=== PATIENT | female | born 1965 | race Caucasian/White ===

== ENCOUNTER 2025-06-02 10:12 | Emergency (ER) | payer MEDICAID, SELFPAY ==
[2025-06-02 10:15] VITALS: BP 146/90; PULSE 66; RESP 20; TEMP 36.3; O2SAT 98; BMI 26.6
--- NOTE | 2025-06-02 10:23 | RAD_ITS ---
PROCEDURE: PELVIS 1 OR 2 VIEWS 06/02/2025 REASON FOR EXAM: INJURY/PAIN Patient fell yesterday. TECHNIQUE: PELVIS 1 OR 2 VIEWS COMPARISON: None. FINDINGS: Hardware: None. Bones: No acute bony abnormality. Joints: No dislocation. soft tissues: No soft tissue abnormalities. RAD/Pelvis 1 or 2 Views IMPRESSION: No acute bony abnormalities. Reading Location: [id number]
--- NOTE | 2025-06-02 10:23 | RAD_ITS ---
PROCEDURE: LUMBAR SPINE 2 OR 3 VIEWS 06/02/2025 REASON FOR EXAM: INJURY/PAIN patient fell yesterday. TECHNIQUE: LUMBAR SPINE 2 OR 3 VIEWS COMPARISON: None. FINDINGS: Vertebrae: No acute bony abnormalities. Discs: The disc spaces are preserved. Facet joint arthropathy at L4-L5 and L5-S1. Alignment: Normal. RAD/Lumbar Spine 2 or 3 Views IMPRESSION: No acute findings. Reading Location: [id number]
--- NOTE | 2025-06-02 10:37 | EDS_ITS ---
HPI HPI - Fall History of Present Illness Chief Complaint: Fall Detail of Chief Complaint: Fall down 3 steps, mother's house Informant: patient Occured/Mechanism Occurred: Yesterday Mechanism/Context: Yes slip, No cannot recall fall and No prodromal Narrative: Walking down the steps and slipped and went down but first 3 steps Fall down steps #: 3 Usually ambulates: Without assistance Pain/Injury Location: Buttocks and low back and neck Pain Location: neck and back Quality of Pain: Dull Current Severity: Mild Maximum Severity: Moderate Worsened by: Movement and palpation Relieved by: Nothing Associated Symptoms Associated Symptoms: Negative for Parasthesias, Weakness, Loss of function, Inability to ambulate, Loss of consciousness or Amnesia Narrative Narrative: Patient is 60-year-old woman. She was walking down her mother steps and slipped. She slid down the last 3. She states she had blood first. She denied head trauma. She is not amnestic. She did complains of neck pain this morning. The neck pain is located bilaterally and not midline. She denies increased shortness of breath from baseline. She denies chest pain or upper back pain. She does endorse low back pain and buttocks pain. She denies difficulty urinating or loss of bowel control. She denies paresthesia, anesthesia or motor weakness upper or lower extremity. She has urinated. She has not noted dark urine or blood in her urine. She is allergic to ketorolac with hives and shortness of breath. She states she drove herself to the emergency department. Prior similar symptoms: Yes Recent Illness/Hospitalization: No PFSH PFS Medical History Pericarditis Tachycardia COPD (chronic obstructive pulmonary disease) Asthma HTN (hypertension) High blood cholesterol Carpal tunnel syndrome of left wrist Overactive bladder OCD (obsessive compulsive disorder) Manic depression PTSD (post-traumatic stress disorder) Home Medications ?Medication ?Instructions ?Recorded ?Last Taken ?Type hydrocodone-acetaminophen 5-325mg 1 tab PO Q6H PRN PRN Pain 3 days 06/02/25 Unknown Rx 5mg-325mg #10 TABLETS Allergy/AdvReac Type Severity Reaction Status Date / Time ketorolac (From Toradol) Allergy Severe Shortness Verified 06/02/25 10:14 of breath bee venom protein (honey Allergy Mild HIVES Verified 06/02/25 10:14 bee) (bee sting) latex Allergy Mild Hives Verified 06/02/25 10:14 Surgical History H/O tubal ligation H/O breast biopsy History of hysterectomy History of carpal tunnel surgery Social History Smoking Status: Heavy Smoker (>10/day) ROS ROS ED Constitutional Constitutional ED: Denies chills, fever(s), subjective or sweats Eyes Eyes: Denies blurry vision, change in vision or diplopia ENT ENT ED: Denies ear pain, rhinorrhea or sore throat Cardiovascular Cardiovascular: Denies chest pain, orthopnea, palpitations, paroxysmal nocturnal dyspnea or racing heartbeat Respiratory/Chest Respiratory/Chest: Denies cough, dyspnea, dyspnea on exertion, orthopnea or paroxysmal nocturnal dyspnea Gastrointestinal Gastrointestinal: Denies abdominal pain, nausea or vomiting Genitourinary Genitourinary ED: Denies hematuria Musculoskeletal Musculoskeletal: Reports back pain and neck pain; Denies arthralgias or myalgias Integumentary Denies rash Neurologic Neurologic: Denies headache(s), paresthesias or weakness Psychiatric Psychiatric: Denies anxiety or depression Hematologic/Lymphatic Hematologic/Lymphatic: Reports other Details: Patient is not on an anticoagulant. ; Denies easy bleeding or easy bruising EXAM Physical Exam Const Vital Signs: 06/02/25 10:15 06/02/25 10:27 Temperature 97.4 F L Temperature Source Temporal Pulse Rate 66 Respiratory Rate 20 H Respiratory Effort Normal Respiratory Depth Normal Respiratory Pattern Normal Blood Pressure 146/90 H Blood Pressure Mean 108 Pulse Ox 98 Oxygen Delivery Method Room Air Room Air Positive well nourished and well developed Constitutional Narrative: Patient appears slightly uncomfortable. Vital signs remarkable and elevated blood pressure. General Appearance ED: well developed HEENT Reports normocephalic and TM's normal bilaterally HEENT Narrative: There is no clinical signs of trauma or basilar skull fracture. atraumatic Eyes PERRL and EOMs intact bilaterally General Eye ED: Negative for pale conjunctiva or scleral icterus Neck full ROM, no lymphadenopathy and supple Chest Wall inspection of chest normal and palpation of chest normal Resp normal respiratory effort, no retractions and clear to auscultation bilaterally Cardio regular rate, regular rhythm, S1 normal heart sound, S2 normal heart sound and no murmurs GI non-tender, non-distended and no masses Back/Spine no CVA tenderness Back/Spine Narrative: There is pain palpation over the right and left trapezius area. There is no midline cervical tenderness. She has full active range of motion. Thoracic Spine / Upper Back: ROM limited Lumbar Spine / Lower Back: lumbar spinal tenderness L4 and L5 Neuro oriented x3, CN's II-XII intact bilaterally, moves all extremities, no focal motor deficits and no sensory deficits noted Neuro Narrative: There is no Babinski sign or clonus right or left. [place] Coma Scale: document GCS findings Spontaneous Obeys Commands Oriented 15 Sensorium / Orientation: alert Cranial Nerves: CN normal except as noted Motor Exam: strength 5/5 throughout Psych mental status grossly normal and thought process normal Skin Skin Narrative: There is no bruising. Lesions: no lesions Rashes: no rashes MDM MDM MDM Narrative Medical decision making narrative: Will obtain x-rays of the pelvis since she has pain no patient over the right ischial tuberosity and LS-spine since her tenderness over L4 and 5. Since there is no midline tenderness. Patient was not medicated since she drove herself. NSAIDs are contraindicated in light of the her reaction to acuter Wolshayy. Radiography Chest X-Ray - ED: 1 View (Pelvis reveals no fracture, subluxation dislocation. There is some nonseptic gas noted. This was independently reviewed interpreted by me at 1047.), 2 View (LS-spine reveals some minimal degenerative changes. There is no evidence of spondylolisthesis spinal lithiasis. There is no evidence of fracture. This independently reviewed interpreted by me at 1047.) and Read by ED Physician Discharge Plan Triage Chief Complaint: Fall ED Provider: Reynaldo Andrade Dx/Rx/DC Orders Clinical Impression: Acute lumbosacral myofascial strain, Contusion of lower back and pelvis, initial encounter, Acute cervical myofascial strain, Fall down steps Instructions: ED Back Sprain/Strain, ED Neck Sprain or Strain Prescriptions: New hydrocodone-acetaminophen 5-325 mg tablet 1 tab PO Q6H PRN PRN (Reason: Pain) 3 Days Qty: 10 0RF Primary Care Provider: Care Physician,No Primary Referrals: Care Physician,No Primary [Primary Care Provider] - Activity Restrictions/Additional Instructions: 1. You may feel worse over the next 24 to 48 hours. 2. You may hurt in more places and you presently do. 3. Apply ice 6-8 times a day over your neck, low back and pelvic area. 4. Follow-up with your primary care physician if you are not better in 1 week. The name of your doctor is located on your insurance card issued to you by [facility] Print Language: Occitan Disposition Disposition: Home, Self Care
--- OUTSIDE RECORDS SUMMARY | 2025-06-02 10:39 | XMS RPT_ITS | CCD ---
Author Organization [facility] [place] Care Team Providers Care Lab Rep Name Role Phone Krish Jimenez Unavailable Unavailable Call, On Unavailable Unavailable Ficco, Scott Unavailable Unavailable Call, On Unavailable Unavailable Call, On Unavailable Unavailable Ficco, Scott Unavailable Unavailable Call, On Unavailable Unavailable Dunia Bravo Unavailable Unavailable Unavailable Primary Care Provider Unavailabl e MOI CARTWRIGHT MD Primary Care Physician Brittany Willoughby MD Primary Care Provider Tho Harper MD Unavailable Gabbie Kingston MD, Barbara Unavailable Brittany Willoughby MD Primary Care Provider Tho Harper MD Unavailable Gabbie Kingston MD, Barbara Unavailable Brittany Willoughby MD Primary Care Provider Tho Harper MD Unavailable Gabbie Kingston MD, Barbara Unavailable Brittany Willoughby MD Primary Care Provider Tho Harper MD Unavailable Gabbie Kingston MD, Barbara Unavailable Brittany Willoughby MD Unavailable Brittany Willoughby MD Unavailable Brittany Willoughby MD Primary Care Provider Tho Harper MD Unavailable Gabbie Kingston MD, Barbara Unavailable Leroy FIERRO, Dorongian Unavailable [phone] Case FIERRO, Brittany Alba Primary Care Provider Travis Schilling MD Unavailable GABBIE FIERRO, MOI Primary Care Unavailable JEM BRENNAN, LISETTE Fenton Attending Unavailab TIERRA Carmona MD Attending Unavailable GABBIE FIERRO, MOI Primary Care Unavailable Janette Gonzalez MD Unavailable [phone] BRITTANY WILLOUGHBY Primary Care Unavailable BRITTANY WILLOUGHBY Primary Care Unavailable MODESTO AKINS Attending Unavailable BRITTANY WILLOUGHBY Primary Care Unavailable Ирина Dalal MD Unavailable Modesto Akins MD Unavailable GABBIE IFERRO, MOI Primary Care Unavailable MODESTO FRANCOIS DO Attending Unavailable KESHA MACEDO MD Attending Unavailvivian CARTWRIGHT MD, [facility] Primary Care Unavailable GABBIE FIERRO, [facility] Primary Care Unavailable MODESTO FRANCOIS DO Attending Unavailable ME CASEENA W Referring Unavailable CASE BRITTANY W Primary Care Unavailable EVER CARUSO Attending Unavailable BRITTANY WILLOUGHBY W Primary Care Unavailable FILOMENA QUINN Attending UnavailBRITTANY Amaya W Referring Unavailable CASE, BRITTANY W Primary Care Unavailable FILOMENA QUINN Attending Unavailmayito e BRITTANY WILLOUGHBY W Referring Unavailable CASE, BRITTANY W Primary Care Unavailable RADHA DEY Attending Unavailable CASE, BRITTANY W Primary Care Unavailable RED TUCKER Attending Unavailable BRITTANY WILLOUGHBY W Referring Unavailable mirabegron (MYRBETRIQ) 50 mg Tb24 Take 1 tablet by mouth once daily. OTC PRODUCT Take 1 capsule by mouth once daily. Probiotic LD 07/15/24 BIOTIN 5,000 MCG GUMMY Take 2 Doses by mouth once daily. Ipratropium Antoine (ATROVENT) 21 mcg (0.03 %) nasal spray Use 2 Sprays in the nose three times a day. cetirizine (ZYRTEC) 10 mg tablet Take 1 tablet by mouth once daily. atorvastatin (LIPITOR) 40 mg tablet Take 1 tablet by mouth once daily. lisinopril (ZESTRIL) 5 mg tablet Take 1 tablet by mouth once daily. pantoprazole DR (PROTONIX) 40 mg tablet Take 1 tablet by mouth once daily. tiotropium-olodaterol (STIOLTO RESPIMAT) 2.5-2.5 mcg/actuation Inhale 2 Puffs as instructed once daily. SUMAtriptan (IMITREX) 50 mg tablet Take 1 tablet (50 mg) by mouth once daily as needed. tiZANidine (ZANAFLEX) 4 mg tablet Take 1 tablet by mouth every 8 hours as needed. albuterol HFA (PROVENTIL HFA) 90 mcg/actuation inhaler Inhale 2 Puffs as instructed every 4 hours as needed for wheezing/shortness of breath. fluticasone (FLONASE) 50 mcg/actuation nasal spray Use 1 Mobile in each nostril once daily. (Patient taking differently: Use 1 Mobile in each nostril once daily. [facility] 07/16- NO LONGER TAKING) menthol (BIOFREEZE, MENTHOL,) 4 % topical gel Apply to affected area three times daily as needed. lidocaine (LIDODERM) 5 % Apply 1 Patch as directed once daily. to affected area. Remove patch after 12 hours. docusate sodium (COLACE) 100 mg capsule [facility] 07/16- NO LONGER TAKING EPINEPHrine (EPIPEN) 0.3 mg/0.3 mL auto-injector Inject 0.3 mg intramuscularly as needed. REVIEW OF SYSTEMS: Chest pain Shortness of breath Bleeding Dizziness Syncope Palpations 10 systems reviewed and are negative with the exception of pertinent positives described in HPI PHYSICAL EXAMINATION: HEENT: NC/AT Heart: RRR with with II/ systolic murmur. Lungs: CTAB Abdomen: Benign, no rebound, guarding or rigidity. Extremities: No edema Neurological: Alert and oriented in no acute distress. Skin: Dry and warm CARDIOVASCULAR MEDICINE TESTING: Last EKG Result Conclusion EKG Collected: 12/16/2023 9:27 PM (Final result) Impression: Normal sinus rhythm Nonspecific T wave abnormality Abnormal ECG When compared with ECG of 25-JAN-2023 20:15, No significant change was found Confirmed by ISABEL FIERRO, [facility] ([id number]) on 12/17/2023 9:22:[address] Result Conclusion CT CHEST W IVCON PE Exam End: 12/17/2023 5:13 AM (Final result) Impression: IMPRESSION: No CT evidence of pulmonary embolism. Limited assessment for subsegmental pulmonary emboli in the lung bases due to motion artifact. No other evidence of acute process in the chest. Unchanged subcentimeter pulmonary nodules as described. Attention can be given on future lung cancer screening CT. Upper lung predominant paraseptal emphysema. CRITICAL TEST/RESULTS: CRITICAL TEST/RESULTS: Acuity: Finding: Communication: Communicated with NAME on TIME via verbal communication. --END OF FINDING-- Data Review Specialist: OTRIZ Transcribe Date/Time: Dec 17 2023 5:14A Dictated by : SUYAPA MAGALLANES MD This examination was interpreted and the report reviewed and electronically signed by: SUYAPA MAGALLANES MD on Dec 17 2023 5:24AM EST Past 72 Hour Labs: Last Lab Drawn: TSH 1.450 07/30/2024 Triglyceride 107 08/22/2022 HDL Cholesterol 46 08/22/2022 LDL Cholesterol 57 08/22/2022 Cholesterol, Total 124 08/22/2022 IMPRESSION: History of hypertension Dyslipidemia Current tobacco user as well as vaping History of pericarditis and pericardial effusion in 2018 ECG in December 2023 showing normal sinus rhythm with nonspecific ST-T wave changes Myocardial perfusion imaging performed in June 2021, chemical, no evidence of ischemia. Echocardiogram in August 2022 essentially normal. History of PTSD and bipolar disorder History of obstructive sleep apnea History of nontoxic thyroid goiter, she usually sees Dr. Aknis for that PLAN AND RECOMMENDATIONS: documented in this encounter [facility] 07-31-2024 Telephone encounter Note Refilled, thank you. -[facility] 07-31-2024 Miscellaneous Notes Refilled, thank you. -[facility] Pharmacy calls in requesting the following refill(s): Requested Prescriptions Pending Prescriptions Disp Refills meloxicam (MOBIC) 15 mg tablet 90 tablet 0 Sig: Take 1 tablet by mouth once daily as needed for pain. Shandra Parmar RN Thanks! documented in this encounter [facility] 07-31-2024 Telephone encounter Note Referral Coordination Patient scheduled for:Thyroid US Location:[facility] Date: 08-16-24 Time:3:00 Prep for test:none Patient informed: TH [facility],afternoon BARTOLO Abreu July 31, 2024 10:01 AM [facility] 07-31-2024 Miscellaneous Notes Referral Coordination Patient scheduled for:Thyroid US Location:[facility] Date: 08-16-24 Time:3:00 Prep for test:none Patient informed: [facility],afternoon BARTOLO Abreu July 31, 2024 10:01 AM Please schedule thyroid ultrasound at [facility]. Thank you Modesto Akins MD documented in this encounter [facility] 07-31-2024 Telephone encounter Note Please schedule thyroid ultrasound at [facility]. Thank you Modesto Akins MD [facility] Work Phone: 07-30-2024 Note HNO ID: [id number] Author: MODESTO AKINS MD Service: ? Author Type: Physician Type: Progress Notes Filed: 07/30/2024 16:17 Note Text: Keyla Maldonado is a 59 year old female, presenting for follow-up CC/AG endocrinology visit for thyroid disease. Her most recent visit was 07/30. Thyroid: Had history of anterior neck soreness, with scratchy throat and swallowing difficulty. - 06/28 thyroid us at [facility] with left inferior 3.7 cm TR4 nodule - 08/28 TSH 2.95 Thyroid history: Family history of thyroid cancer: no Family history of benign thyroid disease: no History of head or neck irradiation: no History of Amiodarone use: no History of lithium use: no Associated signs and symptoms, modifying factors, and severity: Eye symptoms: no Dysphagia: no New neck lump: yes early 2022 Voice change: occasional Dyspnea: no Cough: no Palpitations: no Tremor: no 09/29: follow-up ultrasound at [facility] left nodule measured 4 cm in largest dimension. FNA at [facility] benign 07/31 OV: some fatigue. Some dysphagia, pills and solid foods. No recent thyroid labs Review of Systems Constitutional: Positive for malaise/fatigue. Negative for chills, diaphoresis, fever and weight loss. HENT: Positive for congestion, hearing loss, sore throat and tinnitus. Negative for ear discharge, ear pain, nosebleeds and sinus pain. Eyes: Negative for blurred vision, double vision, photophobia, pain, discharge and redness. Respiratory: Positive for cough, sputum production, shortness of breath and wheezing. Negative for hemoptysis and stridor. Cardiovascular: Negative for chest pain, palpitations, orthopnea, claudication, leg swelling and PND. Gastrointestinal: Positive for abdominal pain, diarrhea and nausea. Negative for blood in stool, constipation, heartburn, melena and vomiting. Genitourinary: Positive for frequency. Negative for dysuria, flank pain, hematuria and urgency. Musculoskeletal: Positive for back pain, falls, joint pain, myalgias and neck pain. Skin: Positive for itching and rash. Neurological: Positive for dizziness, tingling and headaches. Negative for tremors, sensory change, speech change, focal weakness, seizures, loss of consciousness and weakness. Endo/Heme/Allergies: Positive for polydipsia. Negative for environmental allergies. Bruises/bleeds easily. Psychiatric/Behavioral: Positive for depression. Negative for hallucinations, memory loss, substance abuse and suicidal ideas. The patient is nervous/anxious and has insomnia. PAST MEDICAL HISTORY Diagnosis Date Acid reflux on medication Arthritis Bipolar affective disorder (HCC) Caffeine abuse (HCC) Chest pain stress test EF 70-71% 06/2021 COPD (chronic obstructive pulmonary disease) ([facility]) Dr. Schilling Dyslipidemia on meds HFrEF (heart failure with reduced ejection fraction) ([facility]) border 40-45%, echo october 2019 Hypertension well controlled on meds Lung nodule Migraines medication, PCP manages Pericarditis 10/2019 with pericardial effusion Pre-diabetes PTSD (post-traumatic stress disorder) Tachycardia Dr. Phillip Tobacco abuse Urinary frequency PAST SURGICAL HISTORY Procedure Laterality Date BREAST BIOPSY HX Right HYSTERECTOMY HX REVISE MEDIAN N/CARPAL TUNNEL SURG Left TX INGROWN TOENAIL Bilateral bilateral great toes FAMILY HISTORY Problem Relation Age of Onset Leukemia Father Breast Cancer Paternal cousin Social History Tobacco Use Smoking status: Every Day Current packs/day: 0.50 Average packs/day: 0.5 packs/day for 44.0 years (22.0 ttl pk-yrs) Types: Cigarettes Smokeless tobacco: Never Tobacco comments: down to 5 cigs per day, was smoking 3 PPD, started age 13 Vaping Use Vaping status: Former Substance Use Topics Alcohol use: Not Currently Drug use: Never Current Meds acetaminophen (TYLENOL) 500 mg tablet Take 1,000 mg by mouth every 6 hours as needed for pain or fever (specify temp.). mv-mn/folic ac/calcium/vit K1 (WOMEN'S 50 PLUS MULTIVITAMIN ORAL) Take 1 tablet by mouth once daily. LD 07/15/24 metoprolol succinate ER (TOPROL XL) 25 mg 24 hr tablet Take 0.5 tablets by mouth once daily. mirabegron (MYRBETRIQ) 50 mg Tb24 Take 1 tablet by mouth once daily. OTC PRODUCT Take 1 capsule by mouth once daily. Probiotic LD 07/15/24 BIOTIN 5,000 MCG GUMMY Take 2 Doses by mouth once daily. Ipratropium Antoine (ATROVENT) 21 mcg (0.03 %) nasal spray Use 2 Sprays in the nose three times a day. cetirizine (ZYRTEC) 10 mg tablet Take 1 tablet by mouth once daily. atorvastatin (LIPITOR) 40 mg tablet Take 1 tablet by mouth once daily. lisinopril (ZESTRIL) 5 mg tablet Take 1 tablet by mouth once daily. pantoprazole DR (PROTONIX) 40 mg tablet Take 1 tablet by mouth once daily. meloxicam (MOBIC) 15 mg tablet Take 1 tablet by mouth once daily as needed for pain. (Patient taking differently: Take 15 mg by mouth once daily as needed for pain. LD (more content not included)... [facility] 07-30-2024 History of Present illness Narrative Images from the original note were not included. Subjective Joyce Maldonado is a 59 year old female, presenting for follow-up CC/AG endocrinology visit for thyroid disease. Her most recent visit was 07/30. Thyroid: Had history of anterior neck soreness, with scratchy throat and swallowing difficulty. - 06/28 thyroid us at [facility] with left inferior 3.7 cm TR4 nodule - 08/28 TSH 2.95 Thyroid history: Family history of thyroid cancer: no Family history of benign thyroid disease: no History of head or neck irradiation: no History of Amiodarone use: no History of lithium use: no Associated signs and symptoms, modifying factors, and severity: Eye symptoms: no Dysphagia: no New neck lump: yes early 2022 Voice change: occasional Dyspnea: no Cough: no Palpitations: no Tremor: no 09/29: follow-up ultrasound at [facility] left nodule measured 4 cm in largest dimension. FNA at [facility] benign 07/31 OV: some fatigue. Some dysphagia, pills and solid foods. No recent thyroid labs Review of Systems Constitutional: Positive for malaise/fatigue. Negative for chills, diaphoresis, fever and weight loss. HENT: Positive for congestion, hearing loss, sore throat and tinnitus. Negative for ear discharge, ear pain, nosebleeds and sinus pain. Eyes: Negative for blurred vision, double vision, photophobia, pain, discharge and redness. Respiratory: Positive for cough, sputum production, shortness of breath and wheezing. Negative for hemoptysis and stridor. Cardiovascular: Negative for chest pain, palpitations, orthopnea, claudication, leg swelling and PND. Gastrointestinal: Positive for abdominal pain, diarrhea and nausea. Negative for blood in stool, constipation, heartburn, melena and vomiting. Genitourinary: Positive for frequency. Negative for dysuria, flank pain, hematuria and urgency. Musculoskeletal: Positive for back pain, falls, joint pain, myalgias and neck pain. Skin: Positive for itching and rash. Neurological: Positive for dizziness, tingling and headaches. Negative for tremors, sensory change, speech change, focal weakness, seizures, loss of consciousness and weakness. Endo/Heme/Allergies: Positive for polydipsia. Negative for environmental allergies. Bruises/bleeds easily. Psychiatric/Behavioral: Positive for depression. Negative for hallucinations, memory loss, substance abuse and suicidal ideas. The patient is nervous/anxious and has insomnia. PAST MEDICAL HISTORY Diagnosis Date Acid reflux on medication Arthritis Bipolar affective disorder ([facility]) Caffeine abuse ([facility]) Chest pain stress test EF 70-71% 06/2021 COPD (chronic obstructive pulmonary disease) ([facility]) Dr. Schilling Dyslipidemia on meds HFrEF (heart failure with reduced ejection fraction) ([facility]) border 40-45%, echo october 2019 Hypertension well controlled on meds Lung nodule Migraines medication, PCP manages Pericarditis 10/2019 with pericardial effusion Pre-diabetes PTSD (post-traumatic stress disorder) Tachycardia Dr. Phillip Tobacco abuse Urinary frequency PAST SURGICAL HISTORY Procedure Laterality Date BREAST BIOPSY HX Right HYSTERECTOMY HX REVISE MEDIAN N/CARPAL TUNNEL SURG Left TX INGROWN TOENAIL Bilateral bilateral great toes FAMILY HISTORY Problem Relation Age of Onset Leukemia Father Breast Cancer Paternal cousin Social History Tobacco Use Smoking status: Every Day Current packs/day: 0.50 Average packs/day: 0.5 packs/day for 44.0 years (22.0 ttl pk-yrs) Types: Cigarettes Smokeless tobacco: Never Tobacco comments: down to 5 cigs per day, was smoking 3 PPD, started age 13 Vaping Use Vaping status: Former Substance Use Topics Alcohol use: Not Currently Drug use: Never Current Meds acetaminophen (TYLENOL) 500 mg tablet Take 1,000 mg by mouth every 6 hours as needed for pain or fever (specify temp.). mv-mn/folic ac/calcium/vit K1 (WOMEN'S 50 PLUS MULTIVITAMIN ORAL) Take 1 tablet by mouth once daily. LD 07/15/24 metoprolol succinate ER (TOPROL XL) 25 mg 24 hr tablet Take 0.5 tablets by mouth once daily. mirabegron (MYRBETRIQ) 50 mg Tb24 Take 1 tablet by mouth once daily. OTC PRODUCT Take 1 capsule by mouth once daily. Probiotic LD 07/15/24 BIOTIN 5,000 MCG GUMMY Take 2 Doses by mouth once daily. Ipratropium Antoine (ATROVENT) 21 mcg (0.03 %) nasal spray Use 2 Sprays in the nose three times a day. cetirizine (ZYRTEC) 10 mg tablet Take 1 tablet by mouth once daily. atorvastatin (LIPITOR) 40 mg tablet Take 1 tablet by mouth once daily. lisinopril (ZESTRIL) 5 mg tablet Take 1 tablet by mouth once daily. pantoprazole DR (PROTONIX) 40 mg tablet Take 1 tablet by mouth once daily. meloxicam (MOBIC) 15 mg tablet Take 1 tablet by mouth once daily as needed for pain. (Patient taking differently: Take 15 mg by mouth once daily as needed for pain. 07/10/24.) tiotropium-olodaterol (STIOLTO RESPIMAT) 2.5-2.5 mcg/actuation Inhale 2 Puffs as instructed once daily. SUMAtriptan (IMITREX) 50 mg tablet Take 1 tablet (50 mg) by mouth once daily as needed. tiZANidine (ZANAFLEX) 4 mg tablet Take 1 tablet by mouth every 8 hours as needed. albuterol HFA (PROVENTIL HFA) 90 mcg/actuation inhaler Inhale 2 Puffs as instructed every 4 hours as needed for wheezing/shortness of breath. fluticasone (FLONASE) 50 mcg/actuation nasal spray Use 1 Mobile in each nostril once daily. (Patient taking differently: Use 1 Mobile in each nostril once daily. [facility] 07/16- NO LONGER TAKING) menthol (BIOFREEZE, MENTHOL,) 4 % topical gel Apply to affected area three times daily as needed. lidocaine (LIDODERM) 5 % Apply 1 Patch as directed once daily. to affected area. Remove patch after 12 hours. docusate sodium (COLACE) 100 mg capsule [facility] 07/16- NO LONGER TAKING EPINEPHrine (EPIPEN) 0.3 mg/0.3 mL auto-injector Inject 0.3 mg intramuscularly as needed. Objective BP 130/78 Pulse 75 Ht 165.1 cm (5' 5) Wt 75.8 kg (167 lb) SpO2 99% BMI 27.79 kg/m Physical Exam Constitutional: General: She is not in acute distress. Appearance: Normal appearance. HENT: Head: Normocephalic and atraumatic. Eyes: General: No scleral icterus. Conjunctiva/sclera: Conjunctivae normal. Pupils: Pupils are equal, round, and reactive to light. Neck: Thyroid: No thyromegaly. Trachea: No tracheal deviation. Cardiovascular: Rate and Rhythm: Normal rate and regular rhythm. Heart sounds: Normal heart sounds. Pulmonary: Effort: Pulmonary effort is normal. No respiratory distress. Breath sounds: Normal breath sounds. Musculoskeletal: General: No tenderness or deformity. Cervical back: Neck supple. Lymphadenopathy: Cervical: No cervical adenopathy. Skin: General: Skin is warm and dry. Findings: No rash. Neurological: General: No focal deficit present. Mental Status: She is alert and oriented to person, place, and time. Gait: Gait is intact. Psychiatric: Mood and Affect: Mood and affect normal. Behavior: Behavior normal. Cognition and Memory: Memory normal. Judgment: Judgment normal. Assesment / Plans: (Some elements may be copied from previous notes, which have been updated where appropriate, and all reflect current medical decision making from today.) ASSESSMENT/PLAN: 1. Nontoxic goiter, unspecified - ICD9: 241.9, ICD10: E04.9 (primary diagnosis) - will get updated labs and thyroid ultrasound. If nodule larger may need to consider left thyroid lobectomy as she has been having more symptoms Goal TSH 1 to 2 - THYROID STIMULATING HORMONE - T4 FREE/FREE THYROXINE - T3, FREE - THYROID PEROXIDASE ANTIBODY - THYROGLOBULIN ANTIBODY - US THYROID/PARATHYROID 2. Dysphagia, unspecified type - ICD9: 787.20, ICD10: R13.10 - see above. 3. Other fatigue - ICD9: 780.79, ICD10: R53.83 - see above. Check thyroid labs Follow-up one year if labs and thyroid ultrasound stable Electronically signed by Modesto Akins MD July 30, 2024 4:14 PM documented in this encounter [facility] 07-30-2024 Telephone encounter Note Pharmacy calls in requesting the following refill(s): Requested Prescriptions Pending Prescriptions Disp Refills meloxicam (MOBIC) 15 mg tablet 90 tablet 0 Sig: Take 1 tablet by mouth once daily as needed for pain. Shandra Parmar RN Thanks! [facility] 07-18-2024 Telephone encounter Note Spoke with patient results reviewed per Dr. Whyte. Patient verbalized understanding and had no further questions. Nisa Rod MA July 18, 2024 3:21 PM [facility] 07-18-2024 Telephone encounter Note ----- Message from Shi Whyte MD sent at 07/18/2024 11:40 AM EDT ----- Please let the patient know she had only benign polyps that have no cancer risk. She does not need another colonoscopy for 10 years. [facility] 07-18-2024 Miscellaneous Notes Spoke with patient results reviewed per Dr. Whyte. Patient verbalized understanding and had no further questions. Nisa Rod MA July 18, 2024 3:21 PM ----- Message from Shi Whyte MD sent at 07/18/2024 11:40 AM EDT ----- Please let the patient know she had only benign polyps that have no cancer risk. She does not need another colonoscopy for 10 years. documented in this encounter [facility] 07-17-2024 Nurse Note Patient was able to pass some flatus, still c/o of some abdominal pain, but patient states it is better, patient was able to ambulate to the bathroom , and is tolerating po. [facility] 07-17-2024 Nurse Note Patient was able to pass some flatus, still c/o of some abdominal pain, but patient states it is better, patient was able to ambulate to the bathroom , and is tolerating po. Patient c/o abdominal pain rating it a 10/10, encourgaed patient to lay on her left side to expel some gas, notified Dr Whyte and she states she will stop over and see her. documented in this encounter [facility] 07-17-2024 Nurse Note Patient c/o abdominal pain rating it a 10/10, encourgaed patient to lay on her left side to expel some gas, notified Dr Whyte and she states she will stop over and see her. [facility] 07-17-2024 Hospital Discharge instructions Shi Whyte MD - 07/17/2024 10:35 AM EDT Images from the original note were not included. First 24 Hours Following the Procedure Once the colonoscopic procedure has been completed, it is recommended that you be driven home by a friend or family member. If you were sedated for the procedure (which most people are), it's recommended that you have someone with you for the first 24 hours after you leave the endoscopy clinic or hospital. If you have nausea, your doctor may prescribe medications to help alleviate symptoms. During the first 24 hours, you should adhere to the following guidelines: Refrain from driving or operating heavy machinery until at least day after your procedure. Take any pain medications or stool softeners as prescribed. Drink plenty of liquids, including prune juice which can help soften stools. Avoid alcohol for the first 24 hours. Eat high-fiber foods or use an [id number] fiber supplement, if needed. Rest and avoid any heavy lifting or strenuous activity. Make sure you have someone with you. If you are single, ask a friend or family member if they can stay the night. If you're taking a daily aspirin to prevent heart troubles, you don't need to stop. Lower-dose aspirin is considered safe after a colonoscopy. When to Call Your Doctor Complications are uncommon but can occur. Call your doctor or clinic if you experience any of the following symptoms in the first 24 hours following your procedure: You have chills or fever. You experience rectal bleeding of more than a tablespoon. You experience swelling at the site where the IV needle was inserted. You experience severe abdominal pain or bloating (mild pain or bloating can be expected). You are vomiting. You are experiencing irregular heartbeats (arrhythmia). If you just don't feel right for any reason. Trust your intuition, and if you feel that something could be wrong, don't hesitate to call. After the First 24 Hours If polyps were removed during your colonoscopy, you will likely need to alter your activities for the next seven days. This includes not running, not lifting anything over five pounds, avoiding unnecessary travel, and stopping any blood thinners you may be taking (but first, this should be discussed with the physician who has been prescribing the blood thinners, as sometimes using these after a colonoscopy outweighs the risk of not using them). In short, be careful and treat your body gingerly. If you experience any of the following symptoms during the first week, call your doctor immediately or go to your nearest emergency room: You are unable to have a bowel movement or to urinate. You suddenly have trouble breathing. Your stools are black or bloody. Your vomit has blood or bile in it. Your abdomen becomes tender and hard. Any symptoms you have are getting worse. If you had a polyp removed my office will call you when the pathology results come back to discuss the timing of your next colonoscopy and any other treatment needed. If you do not hear from us in 2 weeks please call the office to discuss results. Improving Your Health with Fiber This guide provides basic information to help you start increasing dietary fiber in your diet. These are general guidelines that may be tailored to meet your needs. Fiber is an important dietary substance to help support your health. Making changes in your current eating habits will help you eat more healthfully. Most fiber-containing foods are also good sources of vitamins, minerals, and antioxidants, which offer many health benefits. A registered dietitian can provide in-depth nutrition education to help you develop a personal action plan. What is fiber? Fiber is the structural part of plant foods--such as fruits, vegetables, and grains--that our bodies cannot digest or break down. There are two kinds of fiber: soluble and insoluble. Soluble fiber: dissolves in water to form a gummy gel. It can slow down the passage of food from the stomach to the intestine. Examples: dried beans, oats, barley, bananas, potatoes, and soft parts of apples and pears Insoluble fiber: often referred to as roughage because it does not dissolve in water. It holds onto water, which helps produce softer, bulkier stools to help regulate bowel movements. Examples: whole bran, whole grain products, nuts, corn, carrots, grapes, berries, and peels of apples and pears What other things does fiber do? Research has shown that a diet rich in fiber is associated with many health benefits, including the following: Lowers cholesterol-Soluble fiber has been shown to lower cholesterol by binding to bile (composed of cholesterol) and taking it out of the body. This may help reduce the risk of heart disease. Better regulates blood sugar levels-A high-fiber meal slows down the digestion of food into the intestines, which may help to keep blood sugars from rising rapidly. Weight control-A high-fiber diet may help keep you grimes longer, which prevents overeating and hunger between meals. May prevent intestinal cancer-Insoluble fiber increases the bulk and speed of food moving through the intestinal tract, which reduces time for harmful substances to build up. Constipation-Constipation can often be relieved by increasing the fiber or roughage in your diet. Fiber works to help regulate bowel movements by pulling water into the colon to produce softer, bulkier stools. This action helps to promote better regularity. How much fiber should I eat? The Academy of Nutrition and Dietetics recommends consuming about 25-35 grams of total fiber per day, with 10-15 grams from soluble fiber or 14g of fiber per 1,000 calories. This can be accomplished by choosing 6 ounces of grains (3 or more ounces from whole grains), 2 cups of vegetables, and 2 cups of fruit per day (based on a 2,000 calorie/day pattern). However, as we age, fiber requirements decrease. For those over the age of 70, the recommendation for women is 21 grams and for men 30 grams of total fiber per day. Note: Eating a high-fiber diet may interfere with the absorption and effectiveness of some medications. Speak to your doctor about which medications to take with caution and when to take them. Fiber also binds with certain nutrients and carries them out of the body. To avoid this, aim for the recommended 20-35 grams of fiber per day. When eating a high-fiber diet, be sure to drink at least eight glasses of fluid each day. Tips for increasing dietary fiber in your diet: Add fiber to your diet slowly. Too much fiber all at once may cause cramping, bloating, and constipation. When adding fiber to your diet, be sure to increase fluids (at least 64 ounces per day) to prevent constipation. Buy bread with 2-4 grams of dietary fiber per slice. Buy cereals with at least 5 grams of dietary fiber per serving. Choose cereals with a whole grain such as whole wheat or whole grain rolled oats. Choose raw fruits and vegetables in place of juice. Choose products that have a whole grain listed as the first ingredient, not enriched flour. Whole wheat flour is a whole grain--wheat flour is not. Try alternative fiber choices such as whole buckwheat, whole wheat couscous, quinoa, bulgur, wheat germ, alec seeds, hemp seeds, lentil pasta, and edamame pasta. Popcorn is a whole grain. Serve it low-fat without butter for a healthier snack choice. Try whole wheat bread and whole wheat pastas. Sprinkle bran in soups, cereals, baked products, spaghetti sauce, ground meat, and casseroles. Bran also mixes well with orange juice. Use dried peas, beans, and legumes in main dishes, salads, or side dishes such as rice or pasta. Eat the skins of raw fruits and vegetables. Add dried fruit to yogurt, cereal, rice, and muffins. Try brown rice and whole grain pastas. Choose crackers with a whole grain listed as the first ingredient. Look for whole grain rye and wheat crackers. Fiber supplements Fiber supplements may be an option if you are not able to get enough fiber from your diet. Fiber supplements can be used to normalize both constipation and diarrhea. Check with your doctor before starting any kind of supplement. Read labels for fiber carefully. Drink at least 8 ounces of liquids with your supplement. Taking some fiber supplements without adequate liquids may cause the fiber to swell and may cause choking and constipation. Take a total of 64 oz water daily. Some fiber supplements to consider are Benefiber (wheat dextrin), Metamucil (psyllium), Konsyl (psyllium), Citrucel (methylcellulose), Fibercon (SmartFiber derived from cellulose), and FiberChoice (inulin). Psyllium husk and guar gum are soluble fibers. Consider keeping a food journal and tracking how much fiber you eat in a typical day. Use the fiber content chart in this handout as a guide to meeting your high fiber goal or check with www.NAL.usda.gov/fnic for additional information on the dietary fiber content of food. Fiber Content of Common Foods Food Category Food Serving Size Total Fiber (grams) Soluble Fiber (grams) Starches, Grains, Starchy vegetables Breads Bagel-whole wheat Light white/wheat Tasia-whole wheat Pumpernickel Whole wheat [place] 3 1/2 inches 2 slices 7 inches slice slice slice 3 1 4 3 2 2 1 trace 1 1 trace 1 Cereals Bran flakes Cheerios Oatmeal Fiber One All Bran Kashi Heart to Heart 3/4 cup 1 1/4 cup 1 cup cooked 1/2 cup 2/3 cup 3/4 cup 5 4 4 14 13 5 trace 1 2 1 1 1 Grains Barley Brown rice Pasta-whole wheat Quinoa Lentil pasta Edamame pasta 1/2 cup cooked 1/2 cup 1/2 cup cooked 1/2 cup cooked 1/2 cup cooked 4 2 3 2 17 22 1 trace 1 1 2 3 Legumes and starchy vegetables Garbanzo beans Kidney beans Lentils Potato (with skin) Potatoes, sweet Squash (winter) Green peas, cooked Heck beans [place], cooked 1/2 cup 1/2 cup 1/2 cup 1 medium 1/2 cup 1/2 cup 1/2 cup 1/2 cup 1/2 cup 4 6 5 3 4 3 4 7 2 1 3 1 1 2 2 1 3 trace Nuts and Seeds Almonds Peanuts Craig seeds Walnuts Flaxseed(ground) Alec Seeds Hemp Seeds 1/4 cup 1/4 cup 1/4 cup 1/4 cup 1/8 c or 2tbsp 1/8 c or 2tbsp 1/8 c or 2tbsp 3 3 3 2 4 10 2 1 1 1 trace 2 7 1 Fruits Apple with skin Banana Blueberries Grapefruit [place] Pear with skin Prunes Strawberries 1 medium 1 medium 1 cup 1/2 cup 1 medium 1 medium 3 1 cup 3 2 2 1 3 4 2 4 1 1 trace 1 2 2 1 1 Vegetables, non-starchy Broccoli [place] sprouts Cabbage-green Carrot Cauliflower Green beans Kale Spinach Squash (zucchini) 1/2 cup 1/2 cup 1 cup, fresh 1/2 cup, cooked 1/2 cup, cooked 1/2 cup 1/2 cup 1/2 cup 1/2 cup 3 4 2 2 1 2 3 2 1 1 2 1 1 trace 1 1 1 1 How to read a food label Food labels are standardized by the [place] government's National Labeling and Education Act (NLEA). Nutrition labels and an ingredient list are required on most foods, so that you can make the best selection for a healthy lifestyle. Review the food label below. Determine the total amount of fiber in this product or ask your registered dietitian or healthcare provider to show you how to read food labels and apply the information to your personal needs. In order for a product to be labeled high fiber, it must contain 5 grams or more of dietary fiber per serving. References [place] Department of Agriculture. 7010-5539 Dietary Guidelines for Americans Accessed 04/02/2016. documented in this encounter [facility] 07-17-2024 History and physical note HISTORY AND PHYSICAL EXAMINATION SHORT FORM EVALUATION DATE: 07/17/2024 EVALUATION TIME: 10:28 AM CHIEF COMPLAINT: Screening Colonoscopy HPI: This is a 59 year old female who presents with Screening for Colon Cancer. They report no issues since their office visit and deny significant issues related to completing their prep. Prior colonoscopy: none Personal history of colon cancer: No Family history of colon cancer: No PAST MEDICAL HISTORY: PAST MEDICAL HISTORY No date: Acid reflux Comment: on medication No date: Arthritis No date: Bipolar affective disorder ([facility]) No date: Caffeine abuse ([facility]) No date: Chest pain Comment: stress test EF 70-71% 06/2021 No date: COPD (chronic obstructive pulmonary disease) ([facility]) Comment: Dr. Schilling No date: Dyslipidemia Comment: on meds No date: HFrEF (heart failure with reduced ejection fraction) ([facility]) Comment: border 40-45%, echo october 2019 No date: Hypertension Comment: well controlled on meds No date: Lung nodule No date: Migraines Comment: medication, PCP manages 10/2019: Pericarditis Comment: with pericardial effusion No date: Pre-diabetes No date: PTSD (post-traumatic stress disorder) No date: Tachycardia Comment: Dr. Phillip No date: Tobacco abuse No date: Urinary frequency PAST SURGICAL HISTORY: PAST SURGICAL HISTORY No date: BREAST BIOPSY HX; Right No date: HYSTERECTOMY HX No date: REVISE MEDIAN N/CARPAL TUNNEL SURG; Left No date: TX INGROWN TOENAIL; Bilateral Comment: bilateral great toes SOCIAL HISTORY: Social History Tobacco Use Smoking status: Every Day Current packs/day: 0.50 Average packs/day: 0.5 packs/day for 44.0 years (22.0 ttl pk-yrs) Types: Cigarettes Smokeless tobacco: Never Tobacco comments: down to 5 cigs per day, was smoking 3 PPD, started age 13 Vaping Use Vaping status: Former Substance Use Topics Alcohol use: Not Currently Drug use: Never FAMILY HISTORY: FAMILY HISTORY Problem Relation Age of Onset Leukemia Father Breast Cancer Paternal cousin ALLERGIES: ALLERGIES Allergen Reactions Bee Venom Protein (* Shortness of Breath Latex, Natural Rubb* Rash Tape [Adhesive Tape* Rash Toradol [Ketorolac] Swelling MEDICATIONS: Prior to Admission Medications: metoprolol succinate ER (TOPROL XL) 25 mg 24 hr tablet^Take 0.5 tablets by mouth once daily.^Disp: 45 tablet^Rfl: 3 atorvastatin (LIPITOR) 40 mg tablet^Take 1 tablet by mouth once daily.^Disp: 90 tablet^Rfl: 0 lisinopril (ZESTRIL) 5 mg tablet^Take 1 tablet by mouth once daily.^Disp: 90 tablet^Rfl: 0 acetaminophen (TYLENOL) 500 mg tablet^Take 1,000 mg by mouth every 6 hours as needed for pain or fever (specify temp.).^Disp: ^Rfl: mv-mn/folic ac/calcium/vit K1 (WOMEN'S 50 PLUS MULTIVITAMIN ORAL)^Take 1 tablet by mouth once daily. LD 07/15/24^Disp: ^Rfl: mirabegron (MYRBETRIQ) 50 mg Tb24^Take 1 tablet by mouth once daily.^Disp: 30 tablet^Rfl: 11 OTC PRODUCT^Take 1 capsule by mouth once daily. Probiotic LD 07/15/24^Disp: ^Rfl: multivit with min-folic acid (WOMEN'S MULTIVITAMIN GUMMIES) 120 mcg chew^Take by mouth once daily. [facility] 07/16- NO LONGER TAKING^Disp: ^Rfl: BIOTIN 5,000 MCG GUMMY^Take 2 Doses by mouth once daily.^Disp: ^Rfl: Ipratropium Antoine (ATROVENT) 21 mcg (0.03 %) nasal spray^Use 2 Sprays in the nose three times a day.^Disp: 30 mL^Rfl: 2 cetirizine (ZYRTEC) 10 mg tablet^Take 1 tablet by mouth once daily.^Disp: 90 tablet^Rfl: [address] (PROTONIX) 40 mg tablet^Take 1 tablet by mouth once daily.^Disp: 90 tablet^Rfl: 0 meloxicam (MOBIC) 15 mg tablet^Take 1 tablet by mouth once daily as needed for pain.^Disp: 90 tablet^Rfl: 0 (Patient taking differently: Take 15 mg by mouth once daily as needed for pain. LD 07/10/24.) tiotropium-olodaterol (STIOLTO RESPIMAT) 2.5-2.5 mcg/actuation^Inhale 2 Puffs as instructed once daily.^Disp: 3 Each^Rfl: 3 SUMAtriptan (IMITREX) 50 mg tablet^Take 1 tablet (50 mg) by mouth once daily as needed.^Disp: 30 tablet^Rfl: 2 tiZANidine (ZANAFLEX) 4 mg tablet^Take 1 tablet by mouth every 8 hours as needed.^Disp: 21 tablet^Rfl: 0 albuterol HFA (PROVENTIL HFA) 90 mcg/actuation inhaler^Inhale 2 Puffs as instructed every 4 hours as needed for wheezing/shortness of breath.^Disp: 1 Each^Rfl: 2 fluticasone (FLONASE) 50 mcg/actuation nasal spray^Use 1 Mobile in each nostril once daily.^Disp: 1 Each^Rfl: 2 (Patient taking differently: Use 1 Mobile in each nostril once daily. [facility] 07/16- NO LONGER TAKING) menthol (BIOFREEZE, MENTHOL,) 4 % topical gel^Apply to affected area three times daily as needed.^Disp: 74 mL^Rfl: 1 Iron 18 mg tab^Take by mouth. [facility] 07/16- NO LONGER TAKING^Disp: ^Rfl: lidocaine (LIDODERM) 5 %^Apply 1 Patch as directed once daily. to affected area. Remove patch after 12 hours.^Disp: 30 Patch^Rfl: 1 docusate sodium (COLACE) 100 mg capsule^[facility] 07/16- NO LONGER TAKING^Disp: ^Rfl: EPINEPHrine (EPIPEN) 0.3 mg/0.3 mL auto-injector^Inject 0.3 mg intramuscularly as needed.^Disp: ^Rfl: Current Facility-Administered Medications Medication Dose Route Frequency lactated ringers iv infusion 30 mL/hr INTRAVENOUS CONTINUOUS NaCl 0.9% iv flush bag 20 mL INTRAVENOUS PRN REVIEW OF SYSTEMS: See HPI PHYSICAL EXAM: Patient Vitals for the past 24 hrs: BP Temp Temp src Pulse SpO2 Height Weight 07/17/24 0931 117/71 -- -- -- -- -- -- 07/17/24 0930 130/76 36.3 C (97.4 F) Temporal 81 98 % 165.1 cm (5' 5) 73.4 kg (161 lb 13.1 oz) General Appearance: well appearing, alert, in no acute distress Lungs: Unlabored on room air Heart: Rate regular. Abdomen: Abdomen soft, non-tender, non-distended. IMPRESSION: Screening for Colon Cancer PLAN OF TREATMENT: Colonoscopy SIGNATURE: Shi Whyte MD PATIENT NAME: Joyce Maldonado DATE: July 17, 2024 TIME: 10:28 AM [facility] 07-17-2024 History and physical note HISTORY AND PHYSICAL EXAMINATION SHORT FORM EVALUATION DATE: 07/17/2024 EVALUATION TIME: 10:28 AM CHIEF COMPLAINT: Screening Colonoscopy HPI: This is a 59 year old female who presents with Screening for Colon Cancer. They report no issues since their office visit and deny significant issues related to completing their prep. Prior colonoscopy: none Personal history of colon cancer: No Family history of colon cancer: No PAST MEDICAL HISTORY: PAST MEDICAL HISTORY No date: Acid reflux Comment: on medication No date: Arthritis No date: Bipolar affective disorder ([facility]) No date: Caffeine abuse ([facility]) No date: Chest pain Comment: stress test EF 70-71% 06/2021 No date: COPD (chronic obstructive pulmonary disease) ([facility]) Comment: Dr. Schilling No date: Dyslipidemia Comment: on meds No date: HFrEF (heart failure with reduced ejection fraction) ([facility]) Comment: border 40-45%, echo october 2019 No date: Hypertension Comment: well controlled on meds No date: Lung nodule No date: Migraines Comment: medication, PCP manages 10/2019: Pericarditis Comment: with pericardial effusion No date: Pre-diabetes No date: PTSD (post-traumatic stress disorder) No date: Tachycardia Comment: Dr. Phillip No date: Tobacco abuse No date: Urinary frequency PAST SURGICAL HISTORY: PAST SURGICAL HISTORY No date: BREAST BIOPSY HX; Right No date: HYSTERECTOMY HX No date: REVISE MEDIAN N/CARPAL TUNNEL SURG; Left No date: [place] INGROWN TOENAIL; Bilateral Comment: bilateral great toes SOCIAL HISTORY: Social History Tobacco Use Smoking status: Every Day Current packs/day: 0.50 Average packs/day: 0.5 packs/day for 44.0 years (22.0 ttl pk-yrs) Types: Cigarettes Smokeless tobacco: Never Tobacco comments: down to 5 cigs per day, was smoking 3 PPD, started age 13 Vaping Use Vaping status: Former Substance Use Topics Alcohol use: Not Currently Drug use: Never FAMILY HISTORY: FAMILY HISTORY Problem Relation Age of Onset Leukemia Father Breast Cancer Paternal cousin ALLERGIES: ALLERGIES Allergen Reactions Bee Venom Protein (* Shortness of Breath Latex, Natural Rubb* Rash Tape [Adhesive Tape* Rash Toradol [Ketorolac] Swelling MEDICATIONS: Prior to Admission Medications: metoprolol succinate ER (TOPROL XL) 25 mg 24 hr tablet^Take 0.5 tablets by mouth once daily.^Disp: 45 tablet^Rfl: 3 atorvastatin (LIPITOR) 40 mg tablet^Take 1 tablet by mouth once daily.^Disp: 90 tablet^Rfl: 0 lisinopril (ZESTRIL) 5 mg tablet^Take 1 tablet by mouth once daily.^Disp: 90 tablet^Rfl: 0 acetaminophen (TYLENOL) 500 mg tablet^Take 1,000 mg by mouth every 6 hours as needed for pain or fever (specify temp.).^Disp: ^Rfl: mv-mn/folic ac/calcium/vit K1 (WOMEN'S 50 PLUS MULTIVITAMIN ORAL)^Take 1 tablet by mouth once daily. LD 07/15/24^Disp: ^Rfl: mirabegron (MYRBETRIQ) 50 mg Tb24^Take 1 tablet by mouth once daily.^Disp: 30 tablet^Rfl: 11 OTC PRODUCT^Take 1 capsule by mouth once daily. Probiotic LD 07/15/24^Disp: ^Rfl: multivit with min-folic acid (WOMEN'S MULTIVITAMIN GUMMIES) 120 mcg chew^Take by mouth once daily. [facility] 07/16- NO LONGER TAKING^Disp: ^Rfl: BIOTIN 5,000 MCG GUMMY^Take 2 Doses by mouth once daily.^Disp: ^Rfl: Ipratropium Antoine (ATROVENT) 21 mcg (0.03 %) nasal spray^Use 2 Sprays in the nose three times a day.^Disp: 30 mL^Rfl: 2 cetirizine (ZYRTEC) 10 mg tablet^Take 1 tablet by mouth once daily.^Disp: 90 tablet^Rfl: [address] (PROTONIX) 40 mg tablet^Take 1 tablet by mouth once daily.^Disp: 90 tablet^Rfl: 0 meloxicam (MOBIC) 15 mg tablet^Take 1 tablet by mouth once daily as needed for pain.^Disp: 90 tablet^Rfl: 0 (Patient taking differently: Take 15 mg by mouth once daily as needed for pain. LD 07/10/24.) tiotropium-olodaterol (STIOLTO RESPIMAT) 2.5-2.5 mcg/actuation^Inhale 2 Puffs as instructed once daily.^Disp: 3 Each^Rfl: 3 SUMAtriptan (IMITREX) 50 mg tablet^Take 1 tablet (50 mg) by mouth once daily as needed.^Disp: 30 tablet^Rfl: 2 tiZANidine (ZANAFLEX) 4 mg tablet^Take 1 tablet by mouth every 8 hours as needed.^Disp: 21 tablet^Rfl: 0 albuterol HFA (PROVENTIL HFA) 90 mcg/actuation inhaler^Inhale 2 Puffs as instructed every 4 hours as needed for wheezing/shortness of breath.^Disp: 1 Each^Rfl: 2 fluticasone (FLONASE) 50 mcg/actuation nasal spray^Use 1 Mobile in each nostril once daily.^Disp: 1 Each^Rfl: 2 (Patient taking differently: Use 1 Mobile in each nostril once daily. [facility] 07/16- NO LONGER TAKING) menthol (BIOFREEZE, MENTHOL,) 4 % topical gel^Apply to affected area three times daily as needed.^Disp: 74 mL^Rfl: 1 Iron 18 mg tab^Take by mouth. [facility] 07/16- NO LONGER TAKING^Disp: ^Rfl: lidocaine (LIDODERM) 5 %^Apply 1 Patch as directed once daily. to affected area. Remove patch after 12 hours.^Disp: 30 Patch^Rfl: 1 docusate sodium (COLACE) 100 mg capsule^[facility] 07/16- NO LONGER TAKING^Disp: ^Rfl: EPINEPHrine (EPIPEN) 0.3 mg/0.3 mL auto-injector^Inject 0.3 mg intramuscularly as needed.^Disp: ^Rfl: Current Facility-Administered Medications Medication Dose Route Frequency lactated ringers iv infusion 30 mL/hr INTRAVENOUS CONTINUOUS NaCl 0.9% iv flush bag 20 mL INTRAVENOUS PRN REVIEW OF SYSTEMS: See HPI PHYSICAL EXAM: Patient Vitals for the past 24 hrs: BP Temp Temp src Pulse SpO2 Height Weight 07/17/24 0931 117/71 -- -- -- -- -- -- 07/17/24 0930 130/76 36.3 C (97.4 F) Temporal 81 98 % 165.1 cm (5' 5) 73.4 kg (161 lb 13.1 oz) General Appearance: well appearing, alert, in no acute distress Lungs: Unlabored on room air Heart: Rate regular. Abdomen: Abdomen soft, non-tender, non-distended. IMPRESSION: Screening for Colon Cancer PLAN OF TREATMENT: Colonoscopy SIGNATURE: Shi Whyte MD PATIENT NAME: Joyce Maldonado DATE: July 17, 2024 TIME: 10:28 AM documented in this encounter [facility] 07-17-2024 Surgery Surgical operation note OPERATIVE/PROCEDURE REPORT LOG ID: [id number] SURGERY/PROCEDURE DATE: 07/17/2024 INCISION/PROCEDURE START TIME: 10:44 AM INCISION CLOSE/PROCEDURE END TIME: 10:27 AM SURGEON(S)/PROCEDURALIST(S) AND CELLOPHANE BAG MACHINE OPERATOR(S): Surgeons and Role: * Shi Whyte MD - Proceduralist No Additional Staff SURGERY/PROCEDURE(S): Average risk colonoscopy with polypectomy x7 ANESTHESIA: MAC ASA Class: SURGERY/PROCEDURE DETAILS: This is a 59 year old year old who presented for colonoscopy for average risk screening. After discussion of the indications, benefits, risks, and alternatives, the patient consented for endoscopy. The patient agreed to allow me to discuss the procedure and findings with their friend, Sami. The patient was brought to the endoscopy suite and identified by name, MRN and date of . They were positioned in the left lateral decubitus position and monitored anesthesia care was obtained. Inspection followed by a digital rectal exam were performed. The colonoscope was advanced carefully until reaching the cecum which was identified by the coalescence of the tinea and ileocecal valve. The scope was then slowly withdrawn and the mucosa was carefully inspected. Retroflexion was performed in the rectum. Total withdrawal time was >10 minutes. The patient tolerated the procedure well and was taken to the recovery area in stable condition. The following findings were noted: - external exam of the perianal skin - unremarkable - digital rectal exam - normal - polyp(s) - resection and retrieval were complete - 2 sessile polyps at 10 cm, removed with cold snare - 1 sessile polyp vs inverted diverticuli removed with biopsy forceps - 4 sessile polyps at 25 cm, removed with biopsy forceps - diverticuli - sigmoid - retroflexion - normal - prep - good The patient will require their next colonoscopy in 5 years pending pathology if applicable. Recommendation is for a high fiber diet. PRE-OP/PRE-PROCEDURE DIAGNOSIS: Colon cancer screening, * No Diagnosis Codes entered * POST-OP/POST-PROCEDURE DIAGNOSIS: same as pre-op, colon polyps Antibiotics: Current Anti-Infective Meds (From admission, onward) None ESTIMATED BLOOD LOSS: 0 cc SPECIMENS: ID Type Source Tests Collected by Time Destination A : colon polyp at 10cm x2 Tissue Colon, Polyp SURGICAL PATHOLOGY Shi Whyte MD 07/17/2024 10:45 AM B : colon polyp at 80cm Tissue Colon, Polyp SURGICAL PATHOLOGY Shi Whyte MD 07/17/2024 11:15 AM C : colon polyp at 25cm x4 Tissue Colon, Polyp SURGICAL PATHOLOGY Shi Whyte MD 07/17/2024 11:22 AM COMPLICATIONS: No complications were noted. PARTICIPATION IN SURGERY/PROCEDURE: I/primary surgeon/proceduralist performed the procedure with assistance. SIGNATURE: Shi Whyte MD PATIENT NAME: Joyce Maldonado DATE: July 17, 2024 TIME: 10:35 AM PAGER/CONTACT #: [facility] 07-17-2024 Surgical operation note OPERATIVE/PROCEDURE REPORT LOG ID: [id number] SURGERY/PROCEDURE DATE: 07/17/2024 INCISION/PROCEDURE START TIME: 10:44 AM INCISION CLOSE/PROCEDURE END TIME: 10:27 AM SURGEON(S)/PROCEDURALIST(S) AND CELLOPHANE BAG MACHINE OPERATOR(S): Surgeons and Role: * Shi Whyte MD - Proceduralist No Additional Staff SURGERY/PROCEDURE(S): Average risk colonoscopy with polypectomy x7 ANESTHESIA: MAC ASA Class: SURGERY/PROCEDURE DETAILS: This is a 59 year old year old who presented for colonoscopy for average risk screening. After discussion of the indications, benefits, risks, and alternatives, the patient consented for endoscopy. The patient agreed to allow me to discuss the procedure and findings with their friend, Sami. The patient was brought to the endoscopy suite and identified by name, MRN and date of . They were positioned in the left lateral decubitus position and monitored anesthesia care was obtained. Inspection followed by a digital rectal exam were performed. The colonoscope was advanced carefully until reaching the cecum which was identified by the coalescence of the tinea and ileocecal valve. The scope was then slowly withdrawn and the mucosa was carefully inspected. Retroflexion was performed in the rectum. Total withdrawal time was >10 minutes. The patient tolerated the procedure well and was taken to the recovery area in stable condition. The following findings were noted: - external exam of the perianal skin - unremarkable - digital rectal exam - normal - polyp(s) - resection and retrieval were complete - 2 sessile polyps at 10 cm, removed with cold snare - 1 sessile polyp vs inverted diverticuli removed with biopsy forceps - 4 sessile polyps at 25 cm, removed with biopsy forceps - diverticuli - sigmoid - retroflexion - normal - prep - good The patient will require their next colonoscopy in 5 years pending pathology if applicable. Recommendation is for a high fiber diet. PRE-OP/PRE-PROCEDURE DIAGNOSIS: Colon cancer screening, * No Diagnosis Codes entered * POST-OP/POST-PROCEDURE DIAGNOSIS: same as pre-op, colon polyps Antibiotics: Current Anti-Infective Meds (From admission, onward) None ESTIMATED BLOOD LOSS: 0 cc SPECIMENS: ID Type Source Tests Collected by Time Destination A : colon polyp at 10cm x2 Tissue Colon, Polyp SURGICAL PATHOLOGY Shi Whyte MD 07/17/2024 10:45 AM B : colon polyp at 80cm Tissue Colon, Polyp SURGICAL PATHOLOGY Shi Whyte MD 07/17/2024 11:15 AM C : colon polyp at 25cm x4 Tissue Colon, Polyp SURGICAL PATHOLOGY Shi Whyte MD 07/17/2024 11:22 AM COMPLICATIONS: No complications were noted. PARTICIPATION IN SURGERY/PROCEDURE: I/primary surgeon/proceduralist performed the procedure with assistance. SIGNATURE: Shi Whyte MD PATIENT NAME: Joyce Maldonado DATE: July 17, 2024 TIME: 10:35 AM PAGER/CONTACT #: documented in this encounter [facility] 07-16-2024 Note HNO ID: [id number] Author: KEVIN NESS APRN.HANS Service: ? Author Type: Nurse Practitioner Type: Progress Notes Filed: 07/16/2024 14:17 Note Text: Summary: dos meds PATIENT MEDICATION INSTRUCTIONS Please read below carefully for your personalized instructions. Medications: If you are on blood thinner or anticoagulants including aspirin, please confirm with your surgical team on when to stop these medications. The morning of surgery DO NOT TAKE: vitamins, topical patches/creams/ointments or any over the counter medications. Otherwise, you may take your routine morning prescription medications with a sip of water. Follow prescriber's instructions for meloxicam If you use inhaled medications for asthma/COPD, use them the morning of surgery. You may also use prescription eye drops the morning of surgery. If you have any medication changes between receiving these instructions and your surgery date, please provide this updated information with the nurse who calls you the week day prior to your surgical procedure so we can update your list and provide you with updated instructions for the morning of your procedure. [facility] 07-16-2024 History of Present illness Narrative Summary: dos meds PATIENT MEDICATION INSTRUCTIONS Please read below carefully for your personalized instructions. Medications: If you are on blood thinner or anticoagulants including aspirin, please confirm with your surgical team on when to stop these medications. The morning of surgery DO NOT TAKE: vitamins, topical patches/creams/ointments or any over the counter medications. Otherwise, you may take your routine morning prescription medications with a sip of water. Follow prescriber's instructions for meloxicam If you use inhaled medications for asthma/COPD, use them the morning of surgery. You may also use prescription eye drops the morning of surgery. If you have any medication changes between receiving these instructions and your surgery date, please provide this updated information with the nurse who calls you the week day prior to your surgical procedure so we can update your list and provide you with updated instructions for the morning of your procedure. 59yo female, smoker, vapes. PMH: +CLARISSA noncompliant ([place]), emphysema, pulm nodule, dyspnea, HLD, HTN, pericarditis, CHF, pericardial effusion, esophageal dysphasia (has trouble with pills), GERD, prediabetes, OAB, DVT (remote, no meds), PTSD, bipolar 1. LD meloxicam 07/10. [place] cleared at moderate risk. EKG 12/2023: 64bpm, NSR, NS TW ABN DATA: PSG 12/27/2019 AHI 16.8 RDI 30.9 Moderate sleep apnea PAP titration 12/25/2021 Optimal CPAP pressure 10 cm H20 PFTs 2022: FVC 3.22, FEV1 2.41, ratio 0.75 ECHO 2021: - The left ventricle is normal in size. Left ventricular systolic function is normal. EF = 55 5% (visual est.) Definity contrast used for endocardial border detection. - The right ventricle is normal in size. Right ventricular systolic function is normal. - NTA 12. - There are no significant valvular abnormalities. Stress test 2020: Conclusion: 1. Normal study 2. No evidence of reversible ischemia or prior myocardial infarction. 3. Normal Left ventricle ejection fraction. 4. Test predicts low probability of obstructive coronary artery disease. documented in this encounter [facility] 07-16-2024 Note HNO ID: [id number] Author: KEVIN NESS APRN.HANS Service: ? Author Type: Nurse Practitioner Type: Progress Notes Filed: 07/16/2024 14:17 Note Text: 59yo female, smoker, vapes. PMH: +CLARISSA noncompliant ([place]), emphysema, pulm nodule, dyspnea, HLD, HTN, pericarditis, CHF, pericardial effusion, esophageal dysphasia (has trouble with pills), GERD, prediabetes, OAB, DVT (remote, no meds), PTSD, bipolar 1. LD meloxicam 07/10. [place] cleared at moderate risk. EKG 12/2023: 64bpm, NSR, NS TW ABN DATA: PSG 12/27/2019 AHI 16.8 RDI 30.9 Moderate sleep apnea PAP titration 12/25/2021 Optimal CPAP pressure 10 cm H20 PFTs 2022: FVC 3.22, FEV1 2.41, ratio 0.75 ECHO 2021: - The left ventricle is normal in size. Left ventricular systolic function is normal. EF = 55 ? 5% (visual est.) Definity contrast used for endocardial border detection. - The right ventricle is normal in size. Right ventricular systolic function is normal. - NAT 12. - There are no significant valvular abnormalities. Stress test 2020: Conclusion: 1. Normal study 2. No evidence of reversible ischemia or prior myocardial infarction. 3. Normal Left ventricle ejection fraction. 4. Test predicts low probability of obstructive coronary artery disease. [facility] 07-05-2024 Telephone encounter Note Summary: Colonoscopy details/prep/transportation issues Patient called to discuss Colonoscopy details/prep/transportation issues. All questions were answered. She was confused about transportation. Reiterated about having a friend to ride with her to and from procedure with her ride service. Patient expressed understanding. Joyce Eubanks LPN July 05, 2024 2:39 PM [facility] 07-05-2024 Miscellaneous Notes Summary: Colonoscopy details/prep/transportation issues Patient called to discuss Colonoscopy details/prep/transportation issues. All questions were answered. She was confused about transportation. Reiterated about having a friend to ride with her to and from procedure with her ride service. Patient expressed understanding. Joyce Eubanks LPN July 05, 2024 2:39 PM documented in this encounter [facility] 06-28-2024 Instructions Janette Gonzalez MD - 06/28/2024 3:16 PM EDT You met with your new PCP: Dr. Gonzalez Will see you in 6 months time for a follow up visit. As of right now, metoprolol XL refill provided. Please keep all your appointments as is scheduled. Thank you for allowing me to take care of you. documented in this encounter [facility] 06-28-2024 Nurse Note Pt here to establish care. Pt needs refills on meds. Pt thinks her epi pen is and needs a new rx. [facility] 06-28-2024 Nurse Note Pt here to establish care. Pt needs refills on meds. Pt thinks her epi pen is and needs a new rx. documented in this encounter [facility] 06-28-2024 History of Present illness Narrative Images from the original note were not included. Internal Medicine [facility] ____ Visit Date: June 28, 2024 Follow Up Visit Preceptor: Dr. Shilpa Baez Previsit planning was completed in 10 minutes and involved reviewing previous records of hospitalization, labs, imaging and providers. Chief complaint: To establish with new PCP. . HPI: Joyce Maldonado is a 59 year old Chinese-speaking female who presents to [facility]. Patient states that she has no new complaints. I went over briefly about the problems that we managefor this patient. -Regarding hyperlipidemia, patient continues on Lipitor 40 mg once a day. She does follow with cardiology as well in view of heart failure with reduced ejection fraction for which she is on metoprolol and lisinopril. Her upcoming appointment is on September 14, 2024. Patient has no new concerns regarding medications but did ask for refills on the metoprolol. -We also manage patient for hypertension. Patient's blood pressure on today's visit well within normal limits. Does not endorse any lower extremity numbness or tingling, chest pain, shortness of breath, blurring of vision and mentions that she is compliant with all her medications. -Regarding tobacco use, patient continues to smoke half pack per day which she has been doing for over 25 years. Patient does have a low-dose CT scan coming up in October 26, 2024. -Patient also follows with endocrinology Dr. Akins with a follow-up appointment coming up on 30 July 2024. Patient follows with Dr. Akins for concerns of thyroid nodule s/p biopsy which is now deemed benign. She is not on any medications for thyroid dysfunction. -Patient recently had a mammogram done and an associated ultrasound of the breast to follow-up on left breast nodule. It has been deemed appropriate to have her follow-up with an ultrasound 6 months from now. Patient does not endorse any breast pain or mass that she has noted. -For GERD patient uses pantoprazole and mentions that her GERD is well-controlled. -Patient also has a colonoscopy for colon cancer screening coming up on 17 July 2024. Medical problems I manage -Dyslipidemia on Lipitor 40mg qday. Lipid panel 08/2022 showed cholesterol 124, triglyceride 107, HDL 46, LDL 57 -Prediabetes. A1c 5.5 (prediabetes) on 02/2023 - HFrEF EF 40-45% ECHO 2018. Repeat ECHO 2021 EF 55 5% w/ no HF present. Consider titrating/adding GDMT -Tobacco abuse. Smokes 1/2 pack per day for over 25 years. Was interested in cessation was prescribed nicotine patches/gum. However, has not made efforts to effectively quit use. - HTN: Controlled -Thyroid nodule on thyroid US 09/2023. FNA on 09/2023 findings benign. TSH 2.95 on -Left breast nodule noted on mammogram 06/2022; Normal repeat mammogram 2022 -GERD -Chronic CMV. CMV IgG positive 02/2023. Asymptomatic Medical Problems we co-manage -Bipolar disorder -PTSD(managed by Dr. Nancie Mccormick of [facility]) - Latuda -CLARISSA non-CPAP compliant, -COPD w/ no oxygen use. well controlled. PFTs 12/2022 was normal & Diffuse pulmonary nodule (stable) on low-dose CT scan. . Has been stressed several times to patient that she needs a CPAP but she is not really made any attempts to acquire this device despite being advised of the risk.Pulm (Dr. Schilling) -Overactive bladder/mixed incontinence. Managed by urology (Ever Caruso, CARPET RENOVATOR.COMMUNICATIONS PROGRAM MANAGER). On Mirabegron 50mg qday Last visit with us: 02/27/2024 specialist/hospital/ER visits since last office visit: Nil Labs since last visit: 03/2024: UA,urine culture: No infection; Vitd: WNL: 32.8 Imaging since last visit: 06/14/2024: US breast: 0.7 cm x 0.6 cm x 0.4 cm lobulated lesion in the left breast has a differential diagnosis of a complex cyst or a fibroadenoma and is probably benign. A follow-up ultrasound in 6 months is recommended. __ Medications I prescribe: toprol XL 12.5 mg qday, lisinopril 5mg daily, protonix 40mg qday Medications consultants prescribe: albuterol PRN and Budenoside,atorvastatin 40 Social history: Job: Works on a farm Living: [place] [id number]. Family: To be discussed on the next visit Hobbies: play games on the mobile. Tobacco: 15 pack years Alcohol use: Nil Drugs:Nil Health maintenance: Colonoscopy: Scheduled for July 17, 2023 Mammogram: Normal in 2022 Osteoporosis: NA LDCT:(10/2023) multiple stable lung nodules PHQ: does not endorse any symptoms of depression. STANLEY-7: Does not endorse any symptoms of anxiety. COVID-19: refused Tdap: To be discussed on the next visit to be discussed on the next visit Flu: next time to be taken. Hepatitis VAX Shingles: Pneumococcal: refused HIV/VDRL/hepatitis:Negative for HIV, Hepatitis panel, Chlamydia/gonorrhea (02/2023) BP: 122/72 Temp: 36.7 C (98 F) Pulse: 68 Resp: 16 SpO2: 98 % Recent Labs/Images/Cultures: Latest Ref Rng & Units 10/21/2022 01/25/2023 12/16/2023 CBC WBC 3.70 - 11.00 k/uL 5.63 7.48 7.28 RBC 3.90 - 5.20 m/uL 4.79 5.21 4.86 Hemoglobin 11.5 - 15.5 g/dL 13.5 14.4 13.8 Hematocrit 36.0 - 46.0 % 41.1 43.2 42.1 MCV 80.0 - 100.0 fL 85.8 82.9 86.6 MCH 26.0 - 34.0 pg 28.2 27.6 28.4 MCHC 30.5 - 36.0 g/dL 32.8 33.3 32.8 RDW-CV 11.5 - 15.0 % 13.4 13.2 13.4 Platelet Count 150 - 400 k/uL 240 258 247 MPV 9.0 - 12.7 fL 9.3 8.1 8.0 Baso% % 0.9 0.7 Abs Neut (ANC) 1.45 - 7.50 k/uL 2.62 3.52 Abs Lymph 1.00 - 4.00 k/uL 2.45 2.89 Abs [place] <0.87 k/uL 0.39 0.69 Abs Eosin <0.46 k/uL 0.11 0.11 Abs Baso <0.11 k/uL 0.05 0.05 NRBC /100 WBC 0.0 0.0 Latest Ref Rng & Units 10/21/2022 01/25/2023 12/16/2023 CMP Sodium 136 - 145 mmol/L 143 141 143 Potassium 3.5 - 5.1 mmol/L 4.7 4.3 4.8 Chloride 98 - 107 mmol/L 107 106 110 CO2 21 - 32 mmol/L 29 33 30 Glucose 70 - 100 mg/dL 113 72 84 BUN 7 - 26 mg/dL 10 11 25 Creatinine 0.51 - 0.95 mg/dL 1.48 1.43 1.24 EGFR >=60 mL/min/1.73m 41 43 50 Protein, Total 6.0 - 8.5 g/dL 6.8 Albumin 3.2 - 5.0 g/dL 3.5 Calcium 8.5 - 10.5 mg/dL 9.5 9.5 10.4 Bilirubin, Total 0.2 - 1.0 mg/dL <0.2 AST 8 - 34 U/L 14 ALT 13 - 61 U/L 16 Alkaline Phosphatase 45 - 117 U/L 117 Allergies: Bee Venom Protein (* Shortness of Breath Latex, Natural Rubb* Rash Tape [Adhesive Tape* Rash Toradol [Ketorolac] Swelling Current Outpatient Medications Medication Sig OTC PRODUCT Take by mouth. Probiotic multivit with min-folic acid (WOMEN'S MULTIVITAMIN GUMMIES) 120 mcg chew Take by mouth. BIOTIN 5,000 MCG GUMMY Take by mouth. Ipratropium Antoine (ATROVENT) 21 mcg (0.03 %) nasal spray Use 2 Sprays in the nose three times a day. cetirizine (ZYRTEC) 10 mg tablet Take 1 tablet by mouth once daily. atorvastatin (LIPITOR) 40 mg tablet Take 1 tablet by mouth once daily. lisinopril (ZESTRIL) 5 mg tablet Take 1 tablet by mouth once daily. metoprolol succinate ER (TOPROL XL) 25 mg 24 hr tablet Take 0.5 tablets by mouth once daily. pantoprazole DR (PROTONIX) 40 mg tablet Take 1 tablet by mouth once daily. meloxicam (MOBIC) 15 mg tablet Take 1 tablet by mouth once daily as needed for pain. tiotropium-olodaterol (STIOLTO RESPIMAT) 2.5-2.5 mcg/actuation Inhale 2 Puffs as instructed once daily. mirabegron (MYRBETRIQ) 50 mg Tb24 Take 1 tablet by mouth once daily. SUMAtriptan (IMITREX) 50 mg tablet Take 1 tablet (50 mg) by mouth once daily as needed. tiZANidine (ZANAFLEX) 4 mg tablet Take 1 tablet by mouth every 8 hours as needed. acetaminophen (TYLENOL ARTHRITIS PAIN) 650 mg CR tablet Take 1 tablet by mouth every 8 hours as needed for pain. albuterol HFA (PROVENTIL HFA) 90 mcg/actuation inhaler Inhale 2 Puffs as instructed every 4 hours as needed for wheezing/shortness of breath. fluticasone (FLONASE) 50 mcg/actuation nasal spray Use 1 Mobile in each nostril once daily. Diclofenac Sodium 3 % gel menthol (BIOFREEZE, MENTHOL,) 4 % topical gel Apply to affected area three times daily as needed. Iron 18 mg tab Take by mouth. (Patient not taking: Reported on 05/24/2024) lidocaine (LIDODERM) 5 % Apply 1 Patch as directed once daily. to affected area. Remove patch after 12 hours. nicotine (NICODERM CQ) 21 mg/24 hr Apply 1 Patch as directed every 24 hours. (Patient not taking: Reported on 03/15/2024) nicotine (NICOTROL) 10 mg inhaler Inhale 2 Puffs as instructed as needed. May use 2 puffs as needed for smoking cessation. (Patient not taking: Reported on 03/15/2024) docusate sodium (COLACE) 100 mg capsule docusate sodium 100 mg capsule EPINEPHrine (EPIPEN) 0.3 mg/0.3 mL auto-injector Inject 0.3 mg intramuscularly as needed. nicotine polacrilex (NICORETTE) 4 mg gum Take 4 mg by mouth as needed. (Patient not taking: Reported on 03/15/2024) No current facility-administered medications for this visit. Pneumococcal Vaccine(1 of 2 - PCV) Never done Depression Screening Never done Cervical Cancer Screening Never done Alpha-1 Antitrypsin Deficiency Screening Never done Colorectal Cancer Screening Never done Shingrix Vaccine(1 of 2) Never done Covid-19 Vaccine(2022- season) Never done RSV Vaccine(1 - 1-dose 60+ series) Never done PAST MEDICAL HISTORY No date: Bipolar affective disorder ([facility]) No date: Caffeine abuse ([facility]) No date: Chest pain Comment: stress test EF 70-71% 06/2021 No date: COPD (chronic obstructive pulmonary disease) ([facility]) No date: Dyslipidemia No date: HFrEF (heart failure with reduced ejection fraction) ([facility]) Comment: border 40-45%, echo october 2019 No date: Lung nodule 10/2019: Pericarditis Comment: with pericardial effusion No date: Pre-diabetes No date: PTSD (post-traumatic stress disorder) No date: Tobacco abuse No date: Urinary frequency PAST SURGICAL HISTORY No date: BREAST BIOPSY HX; Right No date: HYSTERECTOMY HX FAMILY HISTORY Problem Relation Age of Onset Leukemia Father Breast Cancer Paternal cousin Social History Tobacco Use Smoking status: Every Day Current packs/day: 0.50 Average packs/day: 0.5 packs/day for 44.0 years (22.0 ttl pk-yrs) Types: Cigarettes Smokeless tobacco: Never Tobacco comments: down to 5 cigs per day, was smoking 3 PPD, started age 13 Vaping Use Vaping status: Former Substance Use Topics Alcohol use: Never Drug use: Never ALLERGIES Allergen Reactions Bee Venom Protein (* Shortness of Breath Latex, Natural Rubb* Rash Tape [Adhesive Tape* Rash Toradol [Ketorolac] Swelling Review of Systems PAIN ASSESSMENT: None GENERAL: Weight loss, no malaise or fevers HEENT: Negative for frequent or significant headaches, no nose bleeds or other nasal problems RESPIRATORY: Cough with productive sputum hemoptysis, wheezing or shortness of breath CARDIOVASCULAR: no palpitations/chest pain/leg swelling GI: No nausea, vomiting, or diarrhea : No history of dysuria, frequency or incontinence MUSCULOSKELETAL: No muscle or joint pain. SKIN: no ulcer/rash HEMATOLOGY/LYMPHOLOGY: Negative for prolonged bleeding, bruising easily or swollen nodes NEURO: No history of headaches, syncope, paralysis, seizures or tremors Physical Exam General appearance: Patient seated comfortably, not in any acute distress. Head: Normocephalic, atraumatic. ENT: Mucous membranes pink and moist, anicteric/acyanotic. No lymphadenopathy/thyromegaly. Respiratory: Clear to auscultation, no crepitation/wheeze/rhonchi. Cardiovascular: RRR, S1-S2, no murmurs/gallops. Abdomen: soft, nontender, no masses/organomegaly, bowel sounds heard. EDUCATION PROGRAM SPECIALIST: Awake, alert, fully oriented. cranial nerves II - XII grossly intact. No neurological deficits. Musculoskeletal: No joint swelling/tenderness/crepitus. No muscle tenderness. Extremities: No edema, no calf tenderness. Psych: Affect appropriate, thoughts are organized, no evidence of homicidal/suicidal ideation. --- Assessment/Plan ASSESSMENT/PLAN: 1. Chronic heart failure, unspecified heart failure type (HCC) - ICD9: 428.9, ICD10: I50.9 (primary diagnosis) - Compensated - Continue current medications. Ideally patient would benefit from being on goal-directed medical therapy with Arni, beta-vero, SGLT2 inhibitors as well as an aldosterone antagonist. These drugs are known to reduce mortality and hospitalizations as well for patients with HFrEF. Patient does have 2 of these 4 medications on board. However these can be uptitrated. She does follow with a molding technician and does have an upcoming appointment with Dr. Dalal. Have encouraged patient to discuss possible uptitration of these medications. Patient was agreeable to do so. 2. Primary hypertension - ICD9: 401.9, ICD10: I10 - Controlled - Recommend home blood pressure monitoring, to bring results to next visit - Encouraged sodium restriction, DASH or Mediterranean diet - Recommend regular aerobic exercise 3. Screen for colon cancer - ICD9: V76.51, ICD10: Z12.11 -Patient is scheduled for colon cancer screening in July 2024. Patient is agreeable to go and she is aware that she has to follow-up on this. 4. Tobacco use disorder - ICD9: 305.1, ICD10: F17.200 - Cessation encouraged. - Physiologic and physical aspects of tobacco addiction as well as strategies for quitting were discussed. - Counseling was given focusing on the harmful effects of this addiction especially given the patient's medical condition(s) which will be worsened because of the chemicals in tobacco. -Patient states that she would like to continue smoking and that she would reach out in case she needs any help quitting. Agreeable to provide any advice or counseling or medical management the patient would like in the situations where she would like to quit smoking. Will continue to bring it up on subsequent visits as well. 5. Chronic cough - ICD9: 786.2, ICD10: R05.3 -Patient seems to be having a chronic cough. Given that she has got history of COPD and is an active smoker, patient would benefit from ideally quitting smoking and being compliant with all her medications to prevent any COPD exacerbations. I have also offered her Prevnar 20 vaccination to avoid pneumococcal pneumonias or at least have a low risk pneumonia if it is that she develops 1. However, patient refused politely to take any vaccinations. At this time she also mention to me that she has been having increased productive cough that she has been unable to expectorate. Will provide her with Mucinex at this time being. Patient was agreeable to take this medication. 6. Overactive bladder - ICD9: 596.51, ICD10: N32.81 -Patient has history of an overactive bladder. She requested for mirabegron which is a beta 3 agonist to prevent overt symptoms of bladder incontinence. I have refilled the same prescription for her. On the next visit, -Discuss specialist appointments and notable recommendations that they may have made for medical management of comorbidities with the patient. -Discuss smoking cessation. -Discuss the use of Prevnar 20 vaccination. -Order an ultrasound of the breast in view of left breast lesion that was noted on the recent ultrasound done in June 2024. Janette Gonzalez MD Discussed with patient the importance of continuity of care. I encouraged patient to schedule next appointment in 6 months approximately with PCP Janette Gonzalez MD Internal Medicine Resident, PGY-2 [facility] 06/28/2024 Discussed physical exam, assessement and plan with preceptor Dr. Shilpa Baez and agreed upon the management of the patient. Attending Note I agree with the resident's findings and plan as documented and have discussed the case and management of the patient's care with the resident. documented in this encounter [facility] 06-28-2024 Note HNO ID: [id number] Author: SHILPA BAEZ MD Service: ? Author Type: Resident Type: Progress Notes Filed: 07/02/2024 14:42 Note Text: Internal Medicine [facility] ____ Visit Date: June 28, 2024 Follow Up Visit Preceptor: Dr. Shilpa Baez Previsit planning was completed in 10 minutes and involved reviewing previous records of hospitalization, labs, imaging and providers. Chief complaint: To establish with new PCP. . HPI: Joyce Maldonado is a 59 year old Chinese-speaking female who presents to [facility]. Patient states that she has no new complaints. I went over briefly about the problems that we managefor this patient. -Regarding hyperlipidemia, patient continues on Lipitor 40 mg once a day. She does follow with cardiology as well in view of heart failure with reduced ejection fraction for which she is on metoprolol and lisinopril. Her upcoming appointment is on September 14, 2024. Patient has no new concerns regarding medications but did ask for refills on the metoprolol. -We also manage patient for hypertension. Patient's blood pressure on today's visit well within normal limits. Does not endorse any lower extremity numbness or tingling, chest pain, shortness of breath, blurring of vision and mentions that she is compliant with all her medications. -Regarding tobacco use, patient continues to smoke half pack per day which she has been doing for over 25 years. Patient does have a low-dose CT scan coming up in October 26, 2024. -Patient also follows with endocrinology Dr. Akins with a follow-up appointment coming up on 30 July 2024. Patient follows with Dr. Akins for concerns of thyroid nodule s/p biopsy which is now deemed benign. She is not on any medications for thyroid dysfunction. -Patient recently had a mammogram done and an associated ultrasound of the breast to follow-up on left breast nodule. It has been deemed appropriate to have her follow-up with an ultrasound 6 months from now. Patient does not endorse any breast pain or mass that she has noted. -For GERD patient uses pantoprazole and mentions that her GERD is well-controlled. -Patient also has a colonoscopy for colon cancer screening coming up on 17 July 2024. Medical problems I manage -Dyslipidemia on Lipitor 40mg qday. Lipid panel 08/2022 showed cholesterol 124, triglyceride 107, HDL 46, LDL 57 -Prediabetes. A1c 5.5 (prediabetes) on 02/2023 - HFrEF EF 40-45% ECHO 2018. Repeat ECHO 2021 EF 55 ? 5% w/ no HF present. Consider titrating/adding GDMT -Tobacco abuse. Smokes 1/2 pack per day for over 25 years. Was interested in cessation was prescribed nicotine patches/gum. However, has not made efforts to effectively quit use. - HTN: Controlled -Thyroid nodule on thyroid US 09/2023. FNA on 09/2023 findings benign. TSH 2.95 on -Left breast nodule noted on mammogram 06/2022; Normal repeat mammogram 2022 -GERD -Chronic CMV. CMV IgG positive 02/2023. Asymptomatic Medical Problems we co-manage -Bipolar disorder -PTSD(managed by Dr. Nancie Mccormick of [facility]) - Latuda -CLARISSA non-CPAP compliant, -COPD w/ no oxygen use. well controlled. PFTs 12/2022 was normal AND Diffuse pulmonary nodule (stable) on low-dose CT scan. . Has been stressed several times to patient that she needs a CPAP but she is not really made any attempts to acquire this device despite being advised of the risk.Pulm (Dr. Schilling) -Overactive bladder/mixed incontinence. Managed by urology (Ever Caruso, CARPET RENOVATOR.COMMUNICATIONS PROGRAM MANAGER). On Mirabegron 50mg qday Last visit with us: 02/27/2024 specialist/hospital/ER visits since last office visit: Nil Labs since last visit: 03/2024: UA,urine culture: No infection; Vitd: WNL: 32.8 Imaging since last visit: 06/14/2024: US breast: 0.7 cm x 0.6 cm x 0.4 cm lobulated lesion in the left breast has a differential diagnosis of a complex cyst or a fibroadenoma and is probably benign. A follow-up ultrasound in 6 months is recommended. __ Medications I prescribe: toprol XL 12.5 mg qday, lisinopril 5mg daily, protonix 40mg qday Medications consultants prescribe: albuterol PRN and Budenoside,atorvastatin 40 Social history: Job: Works on a farm Living: lives with [facility], [facility]. Family: To be discussed on the next visit Hobbies: play games on the mobile. Tobacco: 15 pack years Alcohol use: Nil Drugs:Nil Health maintenance: Colonoscopy: Scheduled for July 17, 2023 Mammogram: Normal in 2022 Osteoporosis: NA LDCT:(10/2023) multiple stable lung nodules PHQ: does not endorse any symptoms of depression. STANLEY-7: Does not endorse any symptoms of anxiety. COVID-19: refused Tdap: To be discussed on the next visit to be discussed on the next visit Flu: next time to be taken. Hepatitis VAX Shingles: Pneumococcal: refused HIV/VDRL/hepatitis: (more content not included)... [facility] 06-21-2024 Instructions Radha Dey APRN.COMMUNICATIONS PROGRAM MANAGER - 06/21/2024 3:25 PM EDT It was a pleasure to care for you today. You were seen today for COPD/Sleep Apnea. If you need refills, please call the office or send a Oc[employer]ch message. Sanju: [phone] Kevin: [phone] I have sent the following new prescriptions to your pharmacy of choice: Fluticasone nasal spray I have started you on Fluticasone nasal spray. It is a topical steroid that will help decrease inflammation in your nose and sinuses, which will help decrease drainage and irritation associated with allergies. Remember, the longer you use it the better it works. 2 sprays per nostril once daily. Atrovent (ipratropium) nasal spray I have started you on ipratropium nasal spray. It will help decrease inflammation in your nose and sinuses, which will help decrease drainage and irritation associated with allergies. Remember, the longer you use it the better it works. 2 sprays per nostril 3x daily. Start taking Cetirizine (Zyrtec) once daily at bedtime to help with your allergies and post nasal drip. Your next scheduled follow up will be in 6 months. If you have any questions or concerns, please feel free to reach out to me via Polantist or telephone call. Thank you, Radha Dey APRN documented in this encounter [facility] 06-21-2024 Note HNO ID: [id number] Author: RADHA DEY APRN.COMMUNICATIONS PROGRAM MANAGER Service: ? Author Type: Nurse Practitioner Type: Progress Notes Filed: 06/22/2024 15:38 Note Text: Patient: Joyce Maldonado PCP: Brittany Willoughby MD CC: tobacco abuse, lung nodules, emphysema HPI: Joyce Maldonado 58 year old female current 1/2 ppd smoker, as well as vaping, with PMH significant for pericarditis, heart failure, pericardial effusion, CLARISSA, pulmonary nodule, dyspnea, DVT, PTSD, bipolar 1 and obesity. The patient is accompanied by Neyda. She is being followed by Dr. Schilling and was last seen on 04/06/2024 by me. At that time: - Not using CPAP, could not tolerate - Still smoking and vaping - I switched her inhaler from Symbicort to Stiolto - I ordered PFTs Today she presents for follow up. Breathing overall is okay. Lots of allergies. Worse with high pollen days. Feels like she is choking when she is eating or drinking. Will start to cough really bad. Pills get stuck in her esophagus. Stiolto seems to help her. She has been twisting it an extra time. She brought it today to demonstrate usage. Last 2 Encounter Wt Readings: Date: Wt: 06/21/2024 75.8 kg (167 lb) 05/24/2024 75.5 kg (166 lb 6.4 oz) Still smoking, down to 5 cigarettes per day. Using patches, inhaler, and gum. Stopped vaping altogether. Current pulmonary medication regimen: Stiolto Albuterol rescue - 2-3x/week, depends on environment Fluticasone nasal spray - not consistent Immunization History Reviewed Past Medical, Social and Surgical History Reviewed. Allergies: Bee Venom Protein (* Shortness of Breath Latex, Natural Rubb* Rash Tape [Adhesive Tape* Rash Toradol [Ketorolac] Swelling OTC PRODUCT Take by mouth. Probiotic multivit with min-folic acid (WOMEN'S MULTIVITAMIN GUMMIES) 120 mcg chew Take by mouth. BIOTIN 5,000 MCG GUMMY Take by mouth. atorvastatin (LIPITOR) 40 mg tablet Take 1 tablet by mouth once daily. lisinopril (ZESTRIL) 5 mg tablet Take 1 tablet by mouth once daily. metoprolol succinate ER (TOPROL XL) 25 mg 24 hr tablet Take 0.5 tablets by mouth once daily. pantoprazole DR (PROTONIX) 40 mg tablet Take 1 tablet by mouth once daily. meloxicam (MOBIC) 15 mg tablet Take 1 tablet by mouth once daily as needed for pain. tiotropium-olodaterol (STIOLTO RESPIMAT) 2.5-2.5 mcg/actuation Inhale 2 Puffs as instructed once daily. mirabegron (MYRBETRIQ) 50 mg Tb24 Take 1 tablet by mouth once daily. SUMAtriptan (IMITREX) 50 mg tablet Take 1 tablet (50 mg) by mouth once daily as needed. tiZANidine (ZANAFLEX) 4 mg tablet Take 1 tablet by mouth every 8 hours as needed. acetaminophen (TYLENOL ARTHRITIS PAIN) 650 mg CR tablet Take 1 tablet by mouth every 8 hours as needed for pain. albuterol HFA (PROVENTIL HFA) 90 mcg/actuation inhaler Inhale 2 Puffs as instructed every 4 hours as needed for wheezing/shortness of breath. fluticasone (FLONASE) 50 mcg/actuation nasal spray Use 1 Mobile in each nostril once daily. Diclofenac Sodium 3 % gel menthol (BIOFREEZE, MENTHOL,) 4 % topical gel Apply to affected area three times daily as needed. lidocaine (LIDODERM) 5 % Apply 1 Patch as directed once daily. to affected area. Remove patch after 12 hours. docusate sodium (COLACE) 100 mg capsule docusate sodium 100 mg capsule EPINEPHrine (EPIPEN) 0.3 mg/0.3 mL auto-injector Inject 0.3 mg intramuscularly as needed. Iron 18 mg tab Take by mouth. (Patient not taking: Reported on 05/24/2024) nicotine (NICODERM CQ) 21 mg/24 hr Apply 1 Patch as directed every 24 hours. (Patient not taking: Reported on 03/15/2024) nicotine (NICOTROL) 10 mg inhaler Inhale 2 Puffs as instructed as needed. May use 2 puffs as needed for smoking cessation. (Patient not taking: Reported on 03/15/2024) nicotine polacrilex (NICORETTE) 4 mg gum Take 4 mg by mouth as needed. (Patient not taking: Reported on 03/15/2024) BP 110/63 (BP Site: Left Arm, BP Position: Sitting, BP Cuff Size: Regular Adult) Pulse 83 Ht 165.1 cm (5' 5) Wt 75.8 kg (167 lb) SpO2 98% BMI 27.79 kg/m? Review of Systems Constitutional: Negative. HENT: Positive for congestion. Eyes: Negative. Respiratory: Positive for cough, sputum production, shortness of breath and wheezing. Cardiovascular: Negative. Gastrointestinal: Negative. Coughing when swallowing Genitourinary: Negative. Musculoskeletal: Negative. Skin: Negative. Endo/Heme/Allergies: Positive for environmental allergies. Psychiatric/Behavioral: Negative. Physical Exam Constitutional: Appearance: Normal appearance. She is obese. HENT: Head: Normocephalic and atraumatic. Right Ear: External ear normal. Left Ear: External ear normal. Nose: Nose normal. Mouth/Throat: Mouth: Mucous membranes are moist. Pharynx: Oropharynx is clear. Comments: Edentulous Eyes: Extraocular Movements: Extraocular movements intact. Conjunctiva/sclera: Conjunctivae normal. Pupils: Pupils are equal, ro (more content not included)... [facility] 06-21-2024 History of Present illness Narrative Patient: Joyce Maldonado PCP: Brittany Willoughby MD CC: tobacco abuse, lung nodules, emphysema HPI: Joyce Maldonado 58 year old female current 1/2 ppd smoker, as well as vaping, with PMH significant for pericarditis, heart failure, pericardial effusion, CLARISSA, pulmonary nodule, dyspnea, DVT, PTSD, bipolar 1 and obesity. The patient is accompanied by Neyda. She is being followed by Dr. Schilling and was last seen on 04/06/2024 by me. At that time: - Not using CPAP, could not tolerate - Still smoking and vaping - I switched her inhaler from Symbicort to Stiolto - I ordered PFTs Today she presents for follow up. Breathing overall is okay. Lots of allergies. Worse with high pollen days. Feels like she is choking when she is eating or drinking. Will start to cough really bad. Pills get stuck in her esophagus. Stiolto seems to help her. She has been twisting it an extra time. She brought it today to demonstrate usage. Last 2 Encounter Wt Readings: Date: Wt: 06/21/2024 75.8 kg (167 lb) 05/24/2024 75.5 kg (166 lb 6.4 oz) Still smoking, down to 5 cigarettes per day. Using patches, inhaler, and gum. Stopped vaping altogether. Current pulmonary medication regimen: Stiolto Albuterol rescue - 2-3x/week, depends on environment Fluticasone nasal spray - not consistent Immunization History Reviewed Past Medical, Social and Surgical History Reviewed. Allergies: Bee Venom Protein (* Shortness of Breath Latex, Natural Rubb* Rash Tape [Adhesive Tape* Rash Toradol [Ketorolac] Swelling OTC PRODUCT Take by mouth. Probiotic multivit with min-folic acid (WOMEN'S MULTIVITAMIN GUMMIES) 120 mcg chew Take by mouth. BIOTIN 5,000 MCG GUMMY Take by mouth. atorvastatin (LIPITOR) 40 mg tablet Take 1 tablet by mouth once daily. lisinopril (ZESTRIL) 5 mg tablet Take 1 tablet by mouth once daily. metoprolol succinate ER (TOPROL XL) 25 mg 24 hr tablet Take 0.5 tablets by mouth once daily. pantoprazole DR (PROTONIX) 40 mg tablet Take 1 tablet by mouth once daily. meloxicam (MOBIC) 15 mg tablet Take 1 tablet by mouth once daily as needed for pain. tiotropium-olodaterol (STIOLTO RESPIMAT) 2.5-2.5 mcg/actuation Inhale 2 Puffs as instructed once daily. mirabegron (MYRBETRIQ) 50 mg Tb24 Take 1 tablet by mouth once daily. SUMAtriptan (IMITREX) 50 mg tablet Take 1 tablet (50 mg) by mouth once daily as needed. tiZANidine (ZANAFLEX) 4 mg tablet Take 1 tablet by mouth every 8 hours as needed. acetaminophen (TYLENOL ARTHRITIS PAIN) 650 mg CR tablet Take 1 tablet by mouth every 8 hours as needed for pain. albuterol HFA (PROVENTIL HFA) 90 mcg/actuation inhaler Inhale 2 Puffs as instructed every 4 hours as needed for wheezing/shortness of breath. fluticasone (FLONASE) 50 mcg/actuation nasal spray Use 1 Mobile in each nostril once daily. Diclofenac Sodium 3 % gel menthol (BIOFREEZE, MENTHOL,) 4 % topical gel Apply to affected area three times daily as needed. lidocaine (LIDODERM) 5 % Apply 1 Patch as directed once daily. to affected area. Remove patch after 12 hours. docusate sodium (COLACE) 100 mg capsule docusate sodium 100 mg capsule EPINEPHrine (EPIPEN) 0.3 mg/0.3 mL auto-injector Inject 0.3 mg intramuscularly as needed. Iron 18 mg tab Take by mouth. (Patient not taking: Reported on 05/24/2024) nicotine (NICODERM CQ) 21 mg/24 hr Apply 1 Patch as directed every 24 hours. (Patient not taking: Reported on 03/15/2024) nicotine (NICOTROL) 10 mg inhaler Inhale 2 Puffs as instructed as needed. May use 2 puffs as needed for smoking cessation. (Patient not taking: Reported on 03/15/2024) nicotine polacrilex (NICORETTE) 4 mg gum Take 4 mg by mouth as needed. (Patient not taking: Reported on 03/15/2024) BP 110/63 (BP Site: Left Arm, BP Position: Sitting, BP Cuff Size: Regular Adult) Pulse 83 Ht 165.1 cm (5' 5) Wt 75.8 kg (167 lb) SpO2 98% BMI 27.79 kg/m Review of Systems Constitutional: Negative. HENT: Positive for congestion. Eyes: Negative. Respiratory: Positive for cough, sputum production, shortness of breath and wheezing. Cardiovascular: Negative. Gastrointestinal: Negative. Coughing when swallowing Genitourinary: Negative. Musculoskeletal: Negative. Skin: Negative. Endo/Heme/Allergies: Positive for environmental allergies. Psychiatric/Behavioral: Negative. Physical Exam Constitutional: Appearance: Normal appearance. She is obese. HENT: Head: Normocephalic and atraumatic. Right Ear: External ear normal. Left Ear: External ear normal. Nose: Nose normal. Mouth/Throat: Mouth: Mucous membranes are moist. Pharynx: Oropharynx is clear. Comments: Edentulous Eyes: Extraocular Movements: Extraocular movements intact. Conjunctiva/sclera: Conjunctivae normal. Pupils: Pupils are equal, round, and reactive to light. Cardiovascular: Rate and Rhythm: Normal rate and regular rhythm. Pulses: Normal pulses. Heart sounds: Normal heart sounds. Pulmonary: Effort: Pulmonary effort is normal. Breath sounds: Examination of the right-upper field reveals rales. Examination of the left-upper field reveals rales. Rales present. Comments: Velcro like Abdominal: General: Abdomen is flat. Bowel sounds are normal. Palpations: Abdomen is soft. Musculoskeletal: General: Normal range of motion. Cervical back: Normal range of motion and neck supple. Skin: General: Skin is warm and dry. Neurological: General: No focal deficit present. Mental Status: She is alert and oriented to person, place, and time. Mental status is at baseline. Psychiatric: Mood and Affect: Mood normal. Speech: Speech normal. Behavior: Behavior normal. DATA: PSG 12/27/2019 AHI 16.8 RDI 30.9 Moderate sleep apnea PAP titration 12/25/2021 Optimal CPAP pressure 10 cm H20 Spirometry 12/29/2022 IMPRESSION: Spirometry is normal. The configuration of the flow-volume curve is consistent with a variable extrathoracic airway obstruction. Clinical correlation is recommended. The diffusing capacity is normal. CT chest WIV CON 12/17/2023 RESULT: Limitations: Limited assessment for subsegmental pulmonary emboli due to motion artifact in the lung bases. Evaluation for thromboembolic disease: - Right heart chambers: No thromboembolic disease. - Main pulmonary arteries: No thromboembolic disease. - Lobar pulmonary arteries: No thromboembolic disease. - Segmental pulmonary arteries: No thromboembolic disease. - Subsegmental pulmonary arteries: No thromboembolic disease identified within limitations of motion artifact. - Additional pulmonary artery findings: The main pulmonary artery is normal in caliber. Lines, tubes, and devices: None. Lung parenchyma and airways: No consolidation. Biapical paraseptal emphysema. Mild bandlike atelectasis in the middle lobe. Mild biapical scarring. Unchanged solid pulmonary nodules in the right upper lobe adjacent to the major fissure measuring 0.4 cm and 0.4 cm (series 3 image 208). Unchanged 0.3 cm pulmonary nodule in the right lower lobe along the major fissure (series 4 image 288). These nodules are unchanged compared back to 03/18/2022 with temporal stability in keeping with a benign etiology. These may represent interfissural lymph nodes. The central airways are patent. Pleural space: No pleural effusion. No pleural thickening. Lower neck, lymph nodes, and mediastinum: Unchanged 2.4 x 3.2 cm left thyroid nodule which was recently assessed on ultrasound. No lymphadenopathy in the supraclavicular, axillary, mediastinal, or hilar regions. Heart, pericardium, and thoracic vessels: The thoracic aorta is normal in caliber. The cardiac chambers are normal in size. No coronary artery atherosclerotic calcifications are noted, although the study is not optimized for coronary assessment. No pericardial effusion or thickening. Bones and soft tissues: No aggressive lytic or sclerotic osseous lesions. Upper abdomen: Cholelithiasis. No other abnormality in the upper abdomen. Marine Firer (topogram) images: No other significant finding. ASSESSMENT AND PLAN: (J43.2) Centrilobular emphysema (HCC) (primary encounter diagnosis) Comment: - Smoking cessation is paramount - Continue Stiolto maintenance inhaler, demonstrated proper use - Continue Albuterol rescue as needed - FEV1 93% - Emphysema noted on CT (F17.200) Tobacco use disorder Comment: 5 minutes spent on counseling patient regarding smoking cessation. Discussed risks of continued smoking on current health concerns. Barriers and motivations identified. Smoking cessation strategies, including pharmacological treatment reviewed. Patient is ready to make cessation attempt using NRT. (R91.8) Multiple lung nodules on CT Comment: - Follows with [facility] (G47.33) CLARISSA (obstructive sleep apnea) Comment: - Refuses CPAP (J30.2) Seasonal allergies Comment: - Continue fluticasone nasal spray - Add Ipratropium nasal spray - Add cetirizine daily (R13.19) Esophageal dysphagia Comment: - Check XR ESOPHAGRAM RTC 6 months I spent a total of 24 minutes on the date of the service which included preparing to see the patient, [id number] patient care, completing clinical documentation, obtaining and/or reviewing separately obtained history, performing a medically appropriate examination, and ordering medications, tests, or procedures. Some of this note was copied/pasted from my previous note. Pertinent information was updated and changed accordingly. Radha Dey APRN-HANS [facility] [place] documented in this encounter [facility] 06-21-2024 Nurse Note MYC EPWORTH SLEEPINESS SCALE-180 DAYS Question 06/20/2024 11:23 PM EDT - Filed by Patient How likely are you to doze off or fall asleep in the situations described below, in contrast to feeling just tired? Sitting and Reading? Slight chance of dozing Watching TV? No chance of dozing Sitting inactive in a public place (e.g a theater or a meeting) Slight chance of dozing As a passenger in a car for an hour without a break? No chance of dozing Lying down to rest in the afternoon when circumstances permit? Moderate chance of dozing Sitting and talking to someone? No chance of dozing Sitting quietly after lunch without alcohol? Slight chance of dozing In a car, while stopped for a few minutes in traffic? No chance of dozing [employer] Sleepiness Scale Total Score (range: 0 - 24) 5 (No clinically significant daytime sleepiness) Your new score compares to the last score... (range: -2 - 3) 0 (NO SCORE = 0) [facility] 06-21-2024 Nurse Note MYC EPWORTH SLEEPINESS SCALE-180 DAYS Question 06/20/2024 11:23 PM EDT - Filed by Patient How likely are you to doze off or fall asleep in the situations described below, in contrast to feeling just tired? Sitting and Reading? Slight chance of dozing Watching TV? No chance of dozing Sitting inactive in a public place (e.g a theater or a meeting) Slight chance of dozing As a passenger in a car for an hour without a break? No chance of dozing Lying down to rest in the afternoon when circumstances permit? Moderate chance of dozing Sitting and talking to someone? No chance of dozing Sitting quietly after lunch without alcohol? Slight chance of dozing In a car, while stopped for a few minutes in traffic? No chance of dozing [employer] Sleepiness Scale Total Score (range: 0 - 24) 5 (No clinically significant daytime sleepiness) Your new score compares to the last score... (range: -2 - 3) 0 (NO SCORE = 0) documented in this encounter [facility] 06-18-2024 Telephone encounter Note Updated ov notes for appt 06/28 to reflect same. Ketty Vargas LPN [facility] 06-18-2024 Miscellaneous Notes Updated ov notes for appt 06/28 to reflect same. Ketty Vargas LPN Attempted to reach the patient over the phone. However, went to voice mail. Did leave a brief note informing patient about the US findings and that there is no immediate concern for right now. I have reassured her that we can discuss more about this over her scheduled appointment on 06/28. Will be sure to order follow up imaging studies appropriately. Thanks-VK Images from the original note were not included. Yu He MD [facility] [place]; Janette Gonzalez MD24 minutes ago (10:10 AM) CECILY Please contact pt to let her know that her ultrasound report showed a cyst that was felt to most likely be benign, not something to be concerned about. It needs to be repeated in 6 months and this plan can be discussed with Dr Gonzalez at her appt 06/[address] Gonzalez should order repeat diagnostic mammogram w ultrasound and place on tracking list at that appt. Left message for patient to return the call. Updated ov notes 06/28 to review mammogram and place new order. Ketty Vargas LPN TRACKING US of Left Breast Patient had above test done 06/14/24, results in chart. [phone]. Patient has an ACC appt on 06/28/24, to est with new PCP Dr. Gonzalez. AO for Dr. Cartwright is gone documented in this encounter [facility] 06-16-2024 Telephone encounter Note Attempted to reach the patient over the phone. However, went to voice mail. Did leave a brief note informing patient about the US findings and that there is no immediate concern for right now. I have reassured her that we can discuss more about this over her scheduled appointment on 06/28. Will be sure to order follow up imaging studies appropriately. Thanks-VK [facility] Work Phone: 06-15-2024 Telephone encounter Note Images from the original note were not included. Yu He MD Mr Intm [facility]; Janette Gonzalez MD24 minutes ago (10:10 AM) CECILY Please contact pt to let her know that her ultrasound report showed a cyst that was felt to most likely be benign, not something to be concerned about. It needs to be repeated in 6 months and this plan can be discussed with Dr Gonzalez at her appt 06/[address] Gonzalez should order repeat diagnostic mammogram w ultrasound and place on tracking list at that appt. [facility] 06-15-2024 Telephone encounter Note Left message for patient to return the call. Updated ov notes 06/[address] to [address] new order. Ketty Vargas LPN [facility] 06-15-2024 Telephone encounter Note TRACKING US of Left Breast Patient had above test done 06/14/24, results in chart. [phone]. Patient has an ACC appt on 06/28/24, to est with new PCP Dr. Gonzalez. AO for Dr. Cartwright is gone [facility] 05-31-2024 Telephone encounter Note Pulmonary risk stratification for colonoscopy on 07/17/24 signed and faxed to [phone] [facility]. Doc sent for scanning Krista Hilario [facility] 05-31-2024 Miscellaneous Notes Pulmonary risk stratification for colonoscopy on 07/17/24 signed and faxed to [phone] [facility]. Doc sent for scanning Krista Hilario documented in this encounter [facility] 05-24-2024 Note HNO ID: [id number] Author: RED TUCKER MD Service: ? Author Type: Physician Type: Progress Notes Filed: 05/24/2024 15:06 Note Text: Joyce Maldonado is a 59 year old female who presents for evaluation for screening colonoscopy. Patient is 59 years old and has a's colonoscopy. She denies any abdominal complaints or concerns other than some chronic intermittent diarrhea. She denies nausea vomiting or abdominal pain. She denies blood in the stool. No family history of GI malignancy. No previous abdominal surgeries other than a hysterectomy. Patient does have a history of COPD and does see pulmonary. She is not on home oxygen. 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HCC) Chest pain stress test EF 70-71% 06/2021 COPD (chronic obstructive pulmonary disease) ([facility]) Dyslipidemia HFrEF (heart failure with reduced ejection fraction) ([facility]) border 40-45%, echo october 2019 Lung nodule Pericarditis 10/2019 with pericardial effusion Pre-diabetes PTSD (post-traumatic stress disorder) Tobacco abuse Urinary frequency PAST SURGICAL HISTORY Procedure Laterality Date BREAST BIOPSY HX Right HYSTERECTOMY HX Social History Tobacco Use Smoking status: Every Day Packs/day: 0.50 Years: 44.00 Additional pack years: 0.00 Total pack years: 22.00 Types: Cigarettes Smokeless tobacco: Never Tobacco comments: down to 5 cigs per day, was smoking 3 PPD, started age 13 Vaping Use Vaping Use: Former Substance Use Topics Alcohol use: Never Drug use: Never FAMILY HISTORY Problem Relation Age of Onset Leukemia Father Breast Cancer Paternal cousin ALLERGIES Allergen Reactions Bee Venom Protein (* Shortness of Breath Latex, Natural Rubb* Rash Tape [Adhesive Tape* Rash Toradol [Ketorolac] Swelling Current Outpatient Medications Medication Sig atorvastatin (LIPITOR) 40 mg tablet Take 1 tablet by mouth once daily. lisinopril (ZESTRIL) 5 mg tablet Take 1 tablet by mouth once daily. metoprolol succinate ER (TOPROL XL) 25 mg 24 hr tablet Take 0.5 tablets by mouth once daily. pantoprazole DR (PROTONIX) 40 mg tablet Take 1 tablet by mouth once daily. meloxicam (MOBIC) 15 mg tablet Take 1 tablet by mouth once daily as needed for pain. tiotropium-olodaterol (STIOLTO RESPIMAT) 2.5-2.5 mcg/actuation Inhale 2 Puffs as instructed once daily. SUMAtriptan (IMITREX) 50 mg tablet Take 1 tablet (50 mg) by mouth once daily as needed. tiZANidine (ZANAFLEX) 4 mg tablet Take 1 tablet by mouth every 8 hours as needed. acetaminophen (TYLENOL ARTHRITIS PAIN) 650 mg CR tablet Take 1 tablet by mouth every 8 hours as needed for pain. albuterol HFA (PROVENTIL HFA) 90 mcg/actuation inhaler Inhale 2 Puffs as instructed every 4 hours as needed for wheezing/shortness of breath. fluticasone (FLONASE) 50 mcg/actuation nasal spray Use 1 Mobile in each nostril once daily. Diclofenac Sodium 3 % gel menthol (BIOFREEZE, MENTHOL,) 4 % topical gel Apply to affected area three times daily as needed. lidocaine (LIDODERM) 5 % Apply 1 Patch as directed once daily. to affected area. Remove patch after 12 hours. docusate sodium (COLACE) 100 mg capsule docusate sodium 100 mg capsule EPINEPHrine (EPIPEN) 0.3 mg/0.3 mL auto-injector Inject 0.3 mg intramuscularly as needed. polyethylene glycol 3350 17 gram/dose powder Use as directed for Miralax / Sports Drink Bowel Prep Kit sports drink Use as directed for Miralax / Sports Drink Bowel Prep Kit Bisacodyl (DULCOLAX) 5 mg tab Use as directed for Miralax / Sports Drink Bowel Prep Kit mirabegron (MYRBETRIQ) 50 mg Tb24 Take 1 tablet by mouth once daily. (Patient not taking: Reported on 04/06/2024) Iron 18 mg tab Take by mouth. (Patient not taking: Reported on 05/24/2024) nicotine (NICODERM CQ) 21 mg/24 hr Apply 1 Patch as directed every 24 hours. (Patient not taking: Reported on 03/15/2024) nicotine (NICOTROL) 10 mg inhaler Inhale 2 Puffs as instructed as needed. May use 2 puffs as needed for smoking cessation. (Patient not taking: Reported on 03/15/2024) nicotine polacrilex (NICORETTE) 4 mg gum Take 4 mg by mouth as needed. (Patient not taking: Reported on 03/15/2024) No current facility-administered medications for this visit. REVIEW OF SYSTEMS PAIN ASSESSMENT: Negative for chronic pain, or current treatment for a chronic pain condition. GENERAL: No weight loss, malaise or fevers NECK: Negative for lumps, goiter, pain and significant neck swelling RESPIRATORY: Negative for cough, hemoptysis, wheezing, COPD, dyspnea or shortness of breath CARDIOVASCULAR: Negative for chest pain, leg swelling, hypertension, CHF or palpitations GI: No nausea, vomiting, or diarrhea : No history of dysuria, frequency or incontinence MUSCULOSKELETAL: Negative for joint pain or swelling, back pain or muscle pain HEMATOLOGY/LYMPHOLOGY: Negative for prolonged bleeding, bruising easily or swollen nodes (more content not included)... [facility] 05-24-2024 History of Present illness Narrative Joyce Maldonado is a 59 year old female who presents for evaluation for screening colonoscopy. Patient is 59 years old and has a's colonoscopy. She denies any abdominal complaints or concerns other than some chronic intermittent diarrhea. She denies nausea vomiting or abdominal pain. She denies blood in the stool. No family history of GI malignancy. No previous abdominal surgeries other than a hysterectomy. Patient does have a history of COPD and does see pulmonary. She is not on home oxygen. 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HCC) Chest pain stress test EF 70-71% 06/2021 COPD (chronic obstructive pulmonary disease) ([facility]) Dyslipidemia HFrEF (heart failure with reduced ejection fraction) ([facility]) border 40-45%, echo october 2019 Lung nodule Pericarditis 10/2019 with pericardial effusion Pre-diabetes PTSD (post-traumatic stress disorder) Tobacco abuse Urinary frequency PAST SURGICAL HISTORY Procedure Laterality Date BREAST BIOPSY HX Right HYSTERECTOMY HX Social History Tobacco Use Smoking status: Every Day Packs/day: 0.50 Years: 44.00 Additional pack years: 0.00 Total pack years: 22.00 Types: Cigarettes Smokeless tobacco: Never Tobacco comments: down to 5 cigs per day, was smoking 3 PPD, started age 13 Vaping Use Vaping Use: Former Substance Use Topics Alcohol use: Never Drug use: Never FAMILY HISTORY Problem Relation Age of Onset Leukemia Father Breast Cancer Paternal cousin ALLERGIES Allergen Reactions Bee Venom Protein (* Shortness of Breath Latex, Natural Rubb* Rash Tape [Adhesive Tape* Rash Toradol [Ketorolac] Swelling Current Outpatient Medications Medication Sig atorvastatin (LIPITOR) 40 mg tablet Take 1 tablet by mouth once daily. lisinopril (ZESTRIL) 5 mg tablet Take 1 tablet by mouth once daily. metoprolol succinate ER (TOPROL XL) 25 mg 24 hr tablet Take 0.5 tablets by mouth once daily. pantoprazole DR (PROTONIX) 40 mg tablet Take 1 tablet by mouth once daily. meloxicam (MOBIC) 15 mg tablet Take 1 tablet by mouth once daily as needed for pain. tiotropium-olodaterol (STIOLTO RESPIMAT) 2.5-2.5 mcg/actuation Inhale 2 Puffs as instructed once daily. SUMAtriptan (IMITREX) 50 mg tablet Take 1 tablet (50 mg) by mouth once daily as needed. tiZANidine (ZANAFLEX) 4 mg tablet Take 1 tablet by mouth every 8 hours as needed. acetaminophen (TYLENOL ARTHRITIS PAIN) 650 mg CR tablet Take 1 tablet by mouth every 8 hours as needed for pain. albuterol HFA (PROVENTIL HFA) 90 mcg/actuation inhaler Inhale 2 Puffs as instructed every 4 hours as needed for wheezing/shortness of breath. fluticasone (FLONASE) 50 mcg/actuation nasal spray Use 1 Mobile in each nostril once daily. Diclofenac Sodium 3 % gel menthol (BIOFREEZE, MENTHOL,) 4 % topical gel Apply to affected area three times daily as needed. lidocaine (LIDODERM) 5 % Apply 1 Patch as directed once daily. to affected area. Remove patch after 12 hours. docusate sodium (COLACE) 100 mg capsule docusate sodium 100 mg capsule EPINEPHrine (EPIPEN) 0.3 mg/0.3 mL auto-injector Inject 0.3 mg intramuscularly as needed. polyethylene glycol 3350 17 gram/dose powder Use as directed for Miralax / Sports Drink Bowel Prep Kit sports drink Use as directed for Miralax / Sports Drink Bowel Prep Kit Bisacodyl (DULCOLAX) 5 mg tab Use as directed for Miralax / Sports Drink Bowel Prep Kit mirabegron (MYRBETRIQ) 50 mg Tb24 Take 1 tablet by mouth once daily. (Patient not taking: Reported on 04/06/2024) Iron 18 mg tab Take by mouth. (Patient not taking: Reported on 05/24/2024) nicotine (NICODERM CQ) 21 mg/24 hr Apply 1 Patch as directed every 24 hours. (Patient not taking: Reported on 03/15/2024) nicotine (NICOTROL) 10 mg inhaler Inhale 2 Puffs as instructed as needed. May use 2 puffs as needed for smoking cessation. (Patient not taking: Reported on 03/15/2024) nicotine polacrilex (NICORETTE) 4 mg gum Take 4 mg by mouth as needed. (Patient not taking: Reported on 03/15/2024) No current facility-administered medications for this visit. REVIEW OF SYSTEMS PAIN ASSESSMENT: Negative for chronic pain, or current treatment for a chronic pain condition. GENERAL: No weight loss, malaise or fevers NECK: Negative for lumps, goiter, pain and significant neck swelling RESPIRATORY: Negative for cough, hemoptysis, wheezing, COPD, dyspnea or shortness of breath CARDIOVASCULAR: Negative for chest pain, leg swelling, hypertension, CHF or palpitations GI: No nausea, vomiting, or diarrhea : No history of dysuria, frequency or incontinence MUSCULOSKELETAL: Negative for joint pain or swelling, back pain or muscle pain HEMATOLOGY/LYMPHOLOGY: Negative for prolonged bleeding, bruising easily or swollen nodes ENDOCRINE: Negative for cold or heat intolerance, polyuria, polydipsia and goiter PHYSICAL EXAM: General Appearance: Well appearing, alert, in no acute distress, well-hydrated, well nourished.. Skin: Skin color, texture, turgor normal, no suspicious rashes or lesions. Head: Normocephalic, no masses, lesions, tenderness or abnormalities. Eyes: Anicteric sclera. Pupils are equally round and reactive to light. Extraocular movements are intact. . Lungs: Normal respiratory effort, no stridor CV: RRR, no JVD Abdomen: Normal abdominal exam, Abdomen soft, non-tender. Bowel sounds normal. No masses, organomegaly. Extremities: No deformities, edema, skin discoloration, clubbing or cyanosis. Good capillary refill. . Assessment: Screen for colon cancer Screening for malignant neoplasm of the rectum (primary encounter diagnosis) Plan: Joyce Maldonado is a 59 year old female who presents for evaluation for screening colonoscopy. Due to patient's age and no previous history of colonoscopy, a screening colonoscopy was recommended. I discussed risks benefits of procedure with patient. She understands and wishes to proceed. Will obtain pulmonary clearance prior to procedure. Red Tucker MD documented in this encounter [facility] 05-24-2024 Instructions Red Tucker MD - 05/24/2024 3:04 PM EDT Images from the original note were not included. Bowel Preparation Instructions for: Miralax-Gatorade Preparations IF YOU DO NOT FOLLOW THESE DIRECTIONS, YOUR COLONOSCOPY WILL BE CANCELLED. [place] Instructions: Your bowel must be empty so that your doctor can clearly view your colon. Follow all of the instructions in this handout EXACTLY as they are written. Do NOT eat any solid food the ENTIRE day before your colonoscopy. Buy your bowel preparation at least 5 days before your colonoscopy. Four (4) Dulcolax laxative tablets containing 5mg of bisacodyl each (NOT Dulcolax stool softener) One (1) 8.3oz. bottle Miralax (238 grams) or generic equivalent 2 x 32oz. Bottles of Gatorade (NOT RED) Diabetic Patients: Use G2 (Gatorade 2) TRANSPORTATION on the Day of Your Exam A responsible adult MUST be present with you at Check In prior to your colonoscopy and REMAIN in the endoscopy area until you are discharged. You are NOT ALLOWED to drive, take a taxi or bus, or leave the Endoscopy Center ALONE. If you do not have a responsible corrugated fastener driver (family member or friend) with you to take you home, your exam cannot be done with sedation and will be cancelled. Please bring a list of all of your current medications, including any [id number] medications with you. Medications If you take insulin, diabetic medications or blood thinners such as Coumadin (warfarin), Plavix (clopidogrel), Ticlid (ticlopidine hydrochloride), Agrylin (anagrelide), Xarelto (Rivaroxaban), Pradaxa (Dabigatran), Eliquis (Apixaban), and Effient (Prasugrel). You MUST call the doctors who orders those medicines for instructions on altering the dosage before your colonoscopy. All other medications should be taken the day of the exam with a sip of water including ASPIRIN. Five (5) Days Before Your Colonoscopy Do NOT take medicines that stop diarrhea - such as Imodium, Kaopectate, or Pepto Bismol. Do NOT take fiber supplements - such as Metamucil, Citrucel, or Perdiem. Do NOT take products that contain iron - such as multi-vitamins (the label lists what is in the products). Three (3) Days Before Your Colonoscopy Do NOT eat high-fiber foods - such as popcorn, beans, seeds (flax, sunflower, quinoa), multigrain bread, nuts, salad/vegetables, or fresh and dried fruit. 1 Bowel Preparation Instructions for: Miralax-Gatorade Preparations One (1) Day Before Your Colonoscopy Only drink clear liquids the ENTIRE DAY before your colonoscopy. Do NOT eat any solid foods. Drink at least 8 ounces of clear liquids every hour after waking up. The clear liquids you can drink include: Clear Liquid (NO RED LIQUIDS) DO NOT DRINK Gatorade, Pedialyte or Powerade Clear broth or bouillon Coffee or tea (no milk or non-dairy creamer) Carbonated and non-carbonated soft drinks Manny-Aid or other fruit flavored drinks Strained fruit juices (no pulp) Jell-O, popsicles, hard candy Water Alcohol Milk or non-dairy creamers Noodles or vegetables in soup Juice with pulp Liquid you cannot see through Do not use tobacco/vaping products Mix 1/2 of Miralax bottle (119 grams) in each 32 ounces of Gatorade bottle until dissolved. Keep cool in the refrigerator. DO NOT ADD ICE. The bowel preparation solution will be consumed in two parts. Part 1 5:00 PM - Evening before your colonoscopy Take 4 Dulcolax tablets. 6 PM - Evening before your colonoscopy Drink 32 oz. of the mixed solution. Drink an 8 oz. glass of bowel preparation every 15 minutes for a total of 4 glasses. Fifteen (15) minutes later, drink an 8 oz. glass of of clear liquids every 15 minutes for a total of 2 glasses. You may continue to drink clear liquids till midnight. Part 2 On the day of your colonoscopy you may drink clear liquids up to (three) 3 hours prior to procedure. 4 1/2 hours before your colonoscopy Take another 32 oz. bottle of mixed solution. Drink an 8 oz. glass of bowel prep every 15 minutes for a total of 4 glasses. Fifteen (15) minutes later, drink an 8 oz. glass of clear liquids every 15 minutes for a total of 2 glasses. You may continue to drink clear liquids up to (three) 3 hours before your exam. 2 10/2019 documented in this encounter [facility] 05-24-2024 Telephone encounter Note Summary: Fax for pulmonary clearance So confusing from pulmonary office. Received pulmonary clearance back from Dr. Schilling dated with office visit date of April 06, 2024. He cleared her for procedure. Form was scanned and put on Dr. Whyte's desk for her review. She will be performing her colonoscopy in Dr. Tucker's place. Joyce Eubanks LPN May 29, 2024 11:54 AM Found out she no longer sees Dr. Schilling. Fax sent to Radha Dey CNP. Joyce Eubanks LPN May 29, 2024 7:46 AM Fax sent for pulmonary clearance. Joyce instructed to call for office visit since it has been over one year since seen by Dr. Schilling for evaluation prior to colonoscopy scheduled 07/17/24. Joyce Eubanks LPN May 24, 2024 2:23 PM [facility] 05-24-2024 Miscellaneous Notes Summary: Fax for pulmonary clearance So confusing from pulmonary office. Received pulmonary clearance back from Dr. Schilling dated with office visit date of April 06, 2024. He cleared her for procedure. Form was scanned and put on Dr. Whyte's desk for her review. She will be performing her colonoscopy in Dr. Tucker's place. Joyce Eubanks LPN May 29, 2024 11:54 AM Found out she no longer sees Dr. Schilling. Fax sent to aRdha Dey CNP. Joyce Eubanks LPN May 29, 2024 7:46 AM Fax sent for pulmonary clearance. Joyce instructed to call for office visit since it has been over one year since seen by Dr. Schilling for evaluation prior to colonoscopy scheduled 07/17/24. Joyce Eubanks LPN May 24, 2024 2:23 PM documented in this encounter [facility] 05-01-2024 Telephone encounter Note REFILL SENT, THANKS [facility] 05-01-2024 Miscellaneous Notes REFILL SENT, THANKS Spoke to pt. She had central scheduling phone # and will call to make appointments. Pt asking for 90-day rx refills. Patient phones requesting refills as follows: Requested Prescriptions Pending Prescriptions Disp Refills atorvastatin (LIPITOR) 40 mg tablet 90 tablet 0 Sig: Take 1 tablet by mouth once daily. lisinopril (ZESTRIL) 5 mg tablet 90 tablet 0 Sig: Take 1 tablet by mouth once daily. metoprolol succinate ER (TOPROL XL) 25 mg 24 hr tablet 45 tablet 0 Sig: Take 0.5 tablets by mouth once daily. mirabegron (MYRBETRIQ) 50 mg Tb24 90 tablet 0 Sig: Take 1 tablet by mouth once daily. pantoprazole DR (PROTONIX) 40 mg tablet 90 tablet 0 Sig: Take 1 tablet by mouth once daily. meloxicam (MOBIC) 15 mg tablet 90 tablet 0 Sig: Take 1 tablet by mouth once daily as needed for pain. Please review and advise. Ketty Vargas LPN documented in this encounter [facility] 05-01-2024 Telephone encounter Note Called patient no answer, unable to leave a message. MAILED LETTER. [facility] 05-01-2024 Miscellaneous Notes Called patient no answer, unable to leave a message. MAILED LETTER. Mailbox full and cannot accept messages. Ketty Vargas LPN Called Patient left message to call clinic. See info below. TRACKING F/U Bilat MAMMO & US of Left Breast Called Patient left message to call clinic regarding F/U test that needs scheduled. Patient needs to call Central Scheduling to schedule above tests which are due the end of June. [phone]. documented in this encounter [facility] 05-01-2024 Telephone encounter Note Spoke to pt. She had central scheduling phone # and will call to make appointments. Pt asking for 90-day rx refills. Patient phones requesting refills as follows: Requested Prescriptions Pending Prescriptions Disp Refills atorvastatin (LIPITOR) 40 mg tablet 90 tablet 0 Sig: Take 1 tablet by mouth once daily. lisinopril (ZESTRIL) 5 mg tablet 90 tablet 0 Sig: Take 1 tablet by mouth once daily. metoprolol succinate ER (TOPROL XL) 25 mg 24 hr tablet 45 tablet 0 Sig: Take 0.5 tablets by mouth once daily. mirabegron (MYRBETRIQ) 50 mg Tb24 90 tablet 0 Sig: Take 1 tablet by mouth once daily. pantoprazole DR (PROTONIX) 40 mg tablet 90 tablet 0 Sig: Take 1 tablet by mouth once daily. meloxicam (MOBIC) 15 mg tablet 90 tablet 0 Sig: Take 1 tablet by mouth once daily as needed for pain. Please review and advise. Ketty Vargas LPN [facility] 04-27-2024 Telephone encounter Note Mailbox full and cannot accept messages. Ketty Vargas LPN [facility] 04-24-2024 Telephone encounter Note Called Patient left message to call clinic. See info below. [facility] 04-18-2024 Telephone encounter Note TRACKING F/U Bilat MAMMO & US of Left Breast Called Patient left message to call clinic regarding F/U test that needs scheduled. Patient needs to call Central Scheduling to schedule above tests which are due the end of June. [phone]. [facility] 04-06-2024 Instructions Radha Dey APRN.COMMUNICATIONS PROGRAM MANAGER - 04/06/2024 3:50 PM EDT Start taking loratadine (Claritin) once daily at bedtime to help with your allergies and post nasal drip. I have started you on a Stiolto inhaler. Please use 2 puffs once daily. I have started you on Fluticasone nasal spray. It is a topical steroid that will help decrease inflammation in your nose and sinuses, which will help decrease drainage and irritation associated with allergies. Remember, the longer you use it the better it works. 2 sprays per nostril once daily. Smoking Cessation (Edu) Tobacco use can lead to tobacco and nicotine addiction. It can also cause serious medical problems. Smoking harms most of your body s organs. There is nicotine in all tobacco products, and this nicotine is most often the cause of tobacco addiction. When you inhale smoke, nicotine travels deep into your lungs. Nicotine affects many parts of your body, including your heart, blood vessels, and hormones. It also affects the way your body uses food (your metabolism) and your brain. Many ex-smokers say that quitting smoking was very hard to do. It can take many tries to successfully quit tobacco and nicotine addiction. But, there are medical therapies and resources that can help you. The physical addiction to nicotine causes unpleasant symptoms, called withdrawal symptoms, when you quit. But, remember that millions of people have quit smoking for good. You can be one of them! There are many ways that quitting tobacco use can help your health. The CDC reports that tobacco smoke has more than 7,000 chemicals and that 70 of them can cause cancer. Some of the ways that quitting smoking helps your health are: It lowers the chance of getting of lung cancer and many other types of cancer. It lowers the chance of getting coronary artery disease within a few years of quitting. It lowers the chance you will have a stroke, peripheral vascular disease, and heart disease. It lowers the chance that parts of your lungs will stop working (chronic obstructive pulmonary disease, COPD). This is a common cause of in the [place]. It lowers the chance that women will have (fertility) problems. It also lowers the chance that they will give early or to babies with low weight. It also helps your family members by keeping them away from secondhand smoke. Once you have decided to quit smoking, it is important to know the ways you can quit. QUITTING IS HARD! Your success is decided, in part, by how strong your addiction to nicotine is. When the amount of nicotine in your body runs low, you begin to crave a cigarette. You may feel jittery, anxious, or short-tempered when you haven t had a cigarette. Other withdrawal symptoms are: Lightheadedness or dizziness. Irritability or restlessness. Depression or unusual changes to your mood. Headaches. Trouble falling and staying asleep. There are many ways to quit smoking. No single way will work for everyone. You may need to try more than one way before you succeed. Most cigarette smokers quit using treatments that have not been scientifically proven. You need to have a prescription to use some of the ways to quit. It is a good idea to talk to your doctor about how you plan to quit tobacco. Know Your Choices [place] : This is the most popular and well-known way for smokers to quit. The method is to suddenly stop using tobacco, without preparing for it and without using any nicotine gums or patches. Although it is the most popular way to quit, it has a high failure rate. Fewer than 5% of tobacco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 HPF Urine cx low growth contaminated 10-50k mixed. Continue plan for CTU and cystoscopy. documented in this encounter [facility] 03-15-2024 History of Present illness Narrative Images from the original note were not included. [facility] ESTABLISHED PATIENT FOLLOW-UP NOTE PATIENT: Joyce Maldonado (58 year old) PCP: Brittany Willoughby MD SUMMARY: Patient known to me for urinary freqeuency and mixed incontinence UUI > stress. On myrbetriq was doing well at time of last visit. ASSESSMENT/PLAN: 1. Urinary frequency - ICD9: 788.41, ICD10: R35.0 (primary diagnosis) 2. Urinary urgency - ICD9: 788.63, ICD10: R39.15 3. OAB (overactive bladder) - ICD9: 596.51, ICD10: N32.81 4. Mixed incontinence - ICD9: 788.33, ICD10: N39.46 Reports Myrbetriq not working well. Will evaluate gross hematuria first. Discussed OAB Management care pathway. Discussed fluid management, bladder control strategies, as well as the role of pelvic floor therpy and bladder training (ie timed voiding/double voiding). Advised avoidance of bladder irritants, increased hydration, and avoidance of constipation. We discussed the role of voiding diaries. Discussed advanced therpies including botox, PTNS, and Interstim. May need to consider 3rd line therapy. 5. Gross hematura. UA- small blood PVR-0 ml Intermittent gross hematuria. New symptom. No c/o UTI. Longstanding smoking history. I discussed the diagnosis of hematuria. We reviewed possible etiologies of hematuria (inclduing but not limited to malignancies). We discussed the workup of hematuria and its risk, benefits, and alternatives. Recommend workup with CTU/cystoscopy. FOLLOW UP: Return for CTU and cystoscopy with KAILEE/FAHEEM. CHIEF COMPLAINT: Patient presents with: Urinary Frequency: HISTORY OF PRESENT ILLNESS: Prior notes were reviewed. Patient presents for follow-up. Reports myrbetriq not working well. She also reports intermittent gross hematuria. No change in urinary symptoms. Denies any recent fever, chills, weakness, or night sweats. REVIEW OF SYSTEMS GENERAL:denies unintentional weight loss, malaise or fevers. NEUROLOGIC: pt is alert and oriented GASTROINTESTINAL: No nausea, vomiting, or diarrhea GENITOURINARY: See HPI MUSCULOSKELETAL: Negative for joint pain or swelling, back pain or muscle pain SKIN: Negative for lesions, rash, and itching. ALLERGIES: ALLERGIES Allergen Reactions Bee Venom Protein (* Shortness of Breath Latex, Natural Rubb* Rash Tape [Adhesive Tape* Rash Toradol [Ketorolac] Swelling MEDICATIONS: meloxicam (MOBIC) 15 mg tablet Take 1 tablet by mouth once daily as needed for pain. pantoprazole DR (PROTONIX) 40 mg tablet Take 1 tablet by mouth once daily. budesonide-formoterol (SYMBICORT) 80-4.5 mcg/actuation inhaler Inhale 2 Puffs as instructed two times a day. mirabegron (MYRBETRIQ) 50 mg Tb24 Take 1 tablet by mouth once daily. lisinopril (ZESTRIL) 5 mg tablet Take 1 tablet by mouth once daily. SUMAtriptan (IMITREX) 50 mg tablet Take 1 tablet (50 mg) by mouth once daily as needed. tiZANidine (ZANAFLEX) 4 mg tablet Take 1 tablet by mouth every 8 hours as needed. metoprolol succinate ER (TOPROL XL) 25 mg 24 hr tablet Take 0.5 tablets by mouth once daily. acetaminophen (TYLENOL ARTHRITIS PAIN) 650 mg CR tablet Take 1 tablet by mouth every 8 hours as needed for pain. albuterol HFA (PROVENTIL HFA) 90 mcg/actuation inhaler Inhale 2 Puffs as instructed every 4 hours as needed for wheezing/shortness of breath. atorvastatin (LIPITOR) 40 mg tablet Take 1 tablet by mouth once daily. fluticasone (FLONASE) 50 mcg/actuation nasal spray Use 1 Mobile in each nostril once daily. Diclofenac Sodium 3 % gel menthol (BIOFREEZE, MENTHOL,) 4 % topical gel Apply to affected area three times daily as needed. lidocaine (LIDODERM) 5 % Apply 1 Patch as directed once daily. to affected area. Remove patch after 12 hours. EPINEPHrine (EPIPEN) 0.3 mg/0.3 mL auto-injector Inject 0.3 mg intramuscularly as needed. iv contrast (will be provided with radiology test) CT Urogram WO/W Inject, intravenously, once for 1 dose.No IV access, insert saline lock prior to the beginning of sedation, infusion, injection of imaging exam. Discontinue saline lock post exam. If Pt. has a central line or IVAD, may access for administration according to line specific nursing protocol. Once exam is complete flush line and de-access according to line specific nursing protocol in the CT contrast administration guidelines link. 0.9 % sodium chloride (NACL 0.9%) infusion Administer at rate defined per CT contrast administration specifications. To be provided with radiology test. Ascorbic Acid (VITAMIN C) 250 mg chew Take 2 tablets by mouth once daily. Iron 18 mg tab Take by mouth. nicotine (NICODERM CQ) 21 mg/24 hr Apply 1 Patch as directed every 24 hours. (Patient not taking: Reported on 03/15/2024) nicotine (NICOTROL) 10 mg inhaler Inhale 2 Puffs as instructed as needed. May use 2 puffs as needed for smoking cessation. (Patient not taking: Reported on 03/15/2024) docusate sodium (COLACE) 100 mg capsule docusate sodium 100 mg capsule nicotine polacrilex (NICORETTE) 4 mg gum Take 4 mg by mouth as needed. (Patient not taking: Reported on 03/15/2024) PAST HISTORY: 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HCC) Chest pain stress test EF 70-71% 06/2021 COPD (chronic obstructive pulmonary disease) ([facility]) Dyslipidemia HFrEF (heart failure with reduced ejection fraction) ([facility]) border 40-45%, echo october 2019 Lung nodule Pericarditis 10/2019 with pericardial effusion Pre-diabetes PTSD (post-traumatic stress disorder) Tobacco abuse Urinary frequency PAST SURGICAL HISTORY Procedure Laterality Date BREAST BIOPSY HX Right HYSTERECTOMY HX FAMILY HISTORY Problem Relation Age of Onset Leukemia Father Breast Cancer Paternal cousin Social History Tobacco Use Smoking status: Every Day Packs/day: 0.50 Years: 44.00 Additional pack years: 0.00 Total pack years: 22.00 Types: Cigarettes Smokeless tobacco: Never Tobacco comments: down to 5 cigs per day, was smoking 3 PPD, started age 13 Vaping Use Vaping Use: Former Substance Use Topics Alcohol use: Never Drug use: Never PHYSICAL EXAMINATION: BP 154/84 Pulse 71 SpO2 99% Constitutional: In no acute distress. Well appearing. Respiratory: Normal respiratory effort without use of accessory muscles. Musculoskeletal: No LE edema or tenderness; Normal gait and station Cardiovascular: Regular rate Gastrointestinal: Soft, non-distended, non-tender, denies CVA tenderness Clinic: GLUCOSE UA (POCT) (mg/dL) Date Value 09/15/2023 Negative BILIRUBIN UA (POCT) (no units) Date Value 09/15/2023 Negative KETONE UA (POCT) (mg/dL) Date Value 09/15/2023 Negative SPECIFIC GRAVITY UA (POCT) (no units) Date Value 09/15/2023 1.020 HEMOGLOBIN/BLOOD UA (POCT) (no units) Date Value 09/15/2023 Small (A) PH UA (POCT) (no units) Date Value 09/15/2023 5.5 PROTEIN UA (POCT) (mg/dL) Date Value 09/15/2023 Negative UROBILINOGEN UA (POCT) (E.U./dL) Date Value 09/15/2023 0.2 NITRITE UA (POCT) (no units) Date Value 09/15/2023 Negative LEUKOCYTES UA (POCT) (no units) Date Value 09/15/2023 Negative COLOR UA (POCT) (no units) Date Value 09/15/2023 Yellow CLARITY UA (POCT) (no units) Date Value 09/15/2023 Clear ] Laboratory: Creatinine Date Value Ref Range Status 12/16/2023 1.24 (H) 0.51 - 0.95 mg/dL Final Comment: Patients receiving either N-Acetylcysteine (NAC) or Metamizole prior to venipuncture, may have falsely depressed results. I have reviewed the problem list, family history, and social history documented by my ancillary staff. Ever Caruso APRN.COMMUNICATIONS PROGRAM MANAGER documented in this encounter [facility] 03-15-2024 Note HNO ID: [id number] Author: EVER CARUSO APRN.HANS Service: ? Author Type: Nurse Practitioner Type: Progress Notes Filed: 03/15/2024 16:14 Note Text: [facility] ESTABLISHED PATIENT FOLLOW-UP NOTE PATIENT: Joyce Nassar Joel (58 year old) PCP: Brittany Willoughby MD ----- SUMMARY: Patient known to me for urinary freqeuency and mixed incontinence UUI > stress. On myrbetriq was doing well at time of last visit. ASSESSMENT/PLAN: 1. Urinary frequency - ICD9: 788.41, ICD10: R35.0 (primary diagnosis) 2. Urinary urgency - ICD9: 788.63, ICD10: R39.15 3. OAB (overactive bladder) - ICD9: 596.51, ICD10: N32.81 4. Mixed incontinence - ICD9: 788.33, ICD10: N39.46 Reports Myrbetriq not working well. Will evaluate gross hematuria first. Discussed OAB Management care pathway. Discussed fluid management, bladder control strategies, as well as the role of pelvic floor therpy and bladder training (ie timed voiding/double voiding). Advised avoidance of bladder irritants, increased hydration, and avoidance of constipation. We discussed the role of voiding diaries. Discussed advanced therpies including botox, PTNS, and Interstim. May need to consider 3rd line therapy. 5. Gross hematura. UA- small blood PVR-0 ml Intermittent gross hematuria. New symptom. No c/o UTI. Longstanding smoking history. I discussed the diagnosis of hematuria. We reviewed possible etiologies of hematuria (inclduing but not limited to malignancies). We discussed the workup of hematuria and its risk, benefits, and alternatives. Recommend workup with CTU/cystoscopy. FOLLOW UP: Return for CTU and cystoscopy with KAILEE/FAHEEM. ----- CHIEF COMPLAINT: Patient presents with: Urinary Frequency: HISTORY OF PRESENT ILLNESS: Prior notes were reviewed. Patient presents for follow-up. Reports manda not working well. She also reports intermittent gross hematuria. No change in urinary symptoms. Denies any recent fever, chills, weakness, or night sweats. REVIEW OF SYSTEMS GENERAL:denies unintentional weight loss, malaise or fevers. NEUROLOGIC: pt is alert and oriented GASTROINTESTINAL: No nausea, vomiting, or diarrhea GENITOURINARY: See HPI MUSCULOSKELETAL: Negative for joint pain or swelling, back pain or muscle pain SKIN: Negative for lesions, rash, and itching. ALLERGIES: ALLERGIES Allergen Reactions Bee Venom Protein (* Shortness of Breath Latex, Natural Rubb* Rash Tape [Adhesive Tape* Rash Toradol [Ketorolac] Swelling MEDICATIONS: meloxicam (MOBIC) 15 mg tablet Take 1 tablet by mouth once daily as needed for pain. pantoprazole DR (PROTONIX) 40 mg tablet Take 1 tablet by mouth once daily. budesonide-formoterol (SYMBICORT) 80-4.5 mcg/actuation inhaler Inhale 2 Puffs as instructed two times a day. mirabegron (MYRBETRIQ) 50 mg Tb24 Take 1 tablet by mouth once daily. lisinopril (ZESTRIL) 5 mg tablet Take 1 tablet by mouth once daily. SUMAtriptan (IMITREX) 50 mg tablet Take 1 tablet (50 mg) by mouth once daily as needed. tiZANidine (ZANAFLEX) 4 mg tablet Take 1 tablet by mouth every 8 hours as needed. metoprolol succinate ER (TOPROL XL) 25 mg 24 hr tablet Take 0.5 tablets by mouth once daily. acetaminophen (TYLENOL ARTHRITIS PAIN) 650 mg CR tablet Take 1 tablet by mouth every 8 hours as needed for pain. albuterol HFA (PROVENTIL HFA) 90 mcg/actuation inhaler Inhale 2 Puffs as instructed every 4 hours as needed for wheezing/shortness of breath. atorvastatin (LIPITOR) 40 mg tablet Take 1 tablet by mouth once daily. fluticasone (FLONASE) 50 mcg/actuation nasal spray Use 1 Mobile in each nostril once daily. Diclofenac Sodium 3 % gel menthol (BIOFREEZE, MENTHOL,) 4 % topical gel Apply to affected area three times daily as needed. lidocaine (LIDODERM) 5 % Apply 1 Patch as directed once daily. to affected area. Remove patch after 12 hours. EPINEPHrine (EPIPEN) 0.3 mg/0.3 mL auto-injector Inject 0.3 mg intramuscularly as needed. iv contrast (will be provided with radiology test) CT Urogram WO/W Inject, intravenously, once for 1 dose.No IV access, insert saline lock prior to the beginning of sedation, infusion, injection of imaging exam. Discontinue saline lock post exam. If Pt. has a central line or IVAD, may access for administration according to line specific nursing protocol. Once exam is complete flush line and de-access according to line specific nursing protocol in the CT contrast administration guidelines link. 0.9 % sodium chloride (NACL 0.9%) infusion Administer at rate defined per CT contrast administration specifications. To be provided with radiology test. Ascorbic Acid (VITAMIN C) 250 mg chew Take 2 t (more content not included)... [facility] 03-13-2024 Telephone encounter Note Spoke to pt. She had central scheduling phone # and will call them to reschedule. Ketty Vargas LPN [facility] 03-13-2024 Miscellaneous Notes Spoke to pt. She had central scheduling phone # and will call them to reschedule. Ketty Vargas LPN TRACKING F/U DX MAMMOGRAM & US Patient canceled above tests scheduled on 03/01/24, and hasn't rescheduled. Called Patient no answer, unable to leave message as voice mailbox is full. Will try again later. documented in this encounter [facility] 03-06-2024 Telephone encounter Note TRACKING F/U DX MAMMOGRAM & US Patient canceled above tests scheduled on 03/01/24, and hasn't rescheduled. Called Patient no answer, unable to leave message as voice mailbox is full. Will try again later. [facility] 03-05-2024 Telephone encounter Note Placed on tracking list. Ketty Vargas LPN [facility] 03-05-2024 Miscellaneous Notes Placed on tracking list. Ketty Vargas LPN Please track this patient for completion of US and diagnostic mammo Spoke to patient. She will schedule imaging to be done by next week. Thank you Pt left msg asking if her diagnostic mammogram and US can have stat placed on the orders so that she can get these done harrison. . Ketty Vargas LPN documented in this encounter [facility] 03-05-2024 Telephone encounter Note Please track this patient for completion of US and diagnostic mammo [facility] Work Phone: 03-01-2024 Telephone encounter Note Spoke to patient. She will schedule imaging to be done by next week. Thank you [facility] 03-01-2024 Telephone encounter Note Pt left msg asking if her diagnostic mammogram and US can have stat placed on the orders so that she can get these done harrison. . Ketty Vargas LPN [facility] 02-29-2024 Telephone encounter Note Patient has left breast nodule. Diagnostic mammogram and US ordered to rule out breast cancer. Please patient on tracking list. Patient has a day off tomorrow and can do them then if needed [facility] 02-29-2024 Miscellaneous Notes Patient has left breast nodule. Diagnostic mammogram and US ordered to rule out breast cancer. Please patient on tracking list. Patient has a day off tomorrow and can do them then if needed documented in this encounter [facility] 02-28-2024 Note IMPRESSION: INCOMPLE TE: NEEDS ADDITIONAL IMAGING EVALUATION The 7 mm nodule in the left breast is indeterminate. An ultrasound is recommended as recommended on 07/01/2022. Sylvia Castle M.D. er/:02/28/2024 08:42:52 Logistics Administrator(s): Yu Alexandre, [facility] letter sent: Additional Imaging Needed Mammogram BI-RADS: 0 Incomplete: needs additional imaging evaluation Multiple national specialty organizations have released breast cancer screening guidelines for women at average risk for developing breast cancer - guidelines that are based on both evidence and opinion, yet differ on when to start and how often to screen for breast cancer. With representation from Breast Imaging, Internal Medicine, Women's Health, Family Medicine, and Medical/Surgical Oncology, the [facility] has carefully reviewed the data and reached the following consensus: 1) All women should engage in shared decision-making with their providers to decide when to start and how often to screen; 2) All women should have the opportunity to start screening mammography at age 40; 3) For women ages 45-55, we recommend annual screening mammograms; 4) For women ages 55 and over, we support both the transition from an annual to a biennial interval if this aligns more with patient's values and preferences, or continuation with annual screening; 5) All women should discuss with their providers when to stop screening mammograms. Data Review Specialist: Susanna Transcribe Date/Time: Feb 27 2024 4:13P Dictated by : SYLVIA CASTLE MD This examination was interpreted and the report reviewed and electronically signed by: SYLVIA CASTLE MD on Feb 28 2024 8:42AM [facility] 02-28-2024 Note Formatting of this n ote might be different from the original. February 28, 2024 PID: [id number] Joyce Maldonado [address] [place] [address] Dear Ms. Maldonado, Your recent breast imaging exam on 02/27/2024 showed a possible finding that requires additional imaging studies for a complete evaluation. Most such findings are probably benign (not cancer). If you have a healthcare provider who ordered/prescribed your screening mammogram: Please call ([phone]) to schedule an appointment for your additional imaging (if you have not already done so). If you DO NOT have a healthcare provider (ie you did not have an order/prescription for your screening mammogram): Please call ([phone]) to schedule an appointment for your additional imaging (if you have not already done so). Your imaging studies and reports are kept on file at [facility] as part of your permanent medical record, and are available for your continuing care. Thank you for allowing us to help in meeting your health care needs. Sincerely, Dr. Castle Interpreting Radiologist [facility] Steve (Additional imaging) [facility] 02-28-2024 Miscellaneous Notes February 28, 2024 PID: [id number] Joyce NassarOlamide Maldonado [address] [place] [address] Dear Ms. Maldonado, Your recent breast imaging exam on 02/27/2024 showed a possible finding that requires additional imaging studies for a complete evaluation. Most such findings are probably benign (not cancer). If you have a healthcare provider who ordered/prescribed your screening mammogram: Please call ([phone]) to schedule an appointment for your additional imaging (if you have not already done so). If you DO NOT have a healthcare provider (ie you did not have an order/prescription for your screening mammogram): Please call ([phone]) to schedule an appointment for your additional imaging (if you have not already done so). Your imaging studies and reports are kept on file at [facility] as part of your permanent medical record, and are available for your continuing care. Thank you for allowing us to help in meeting your health care needs. Sincerely, Dr. Castle Interpreting Radiologist [facility] Steve (Additional imaging) documented in this encounter [facility] 02-27-2024 Instructions Moi Cartwright I, MD - 02/27/2024 3:06 PM EDT -Please schedule with new PCP in 3 months -Please complete blood work as soon as possible -Complete mammogram -Complete physical therapy documented in this encounter [facility] 02-27-2024 History of Present illness Narrative Joyce is a 58 year old female arriving at clinic today for routine visit. HPI: Problems we manage -dyslipidemia on Lipitor -CLARISSA not on CPAP -Bipolar disorder previously on Latuda, but stopped going to [place] rising PTSD, caffeine abuse and tobacco abuse, -HTN on metoprolol and lisinopril We manage all her medical conditions except for psychiatric care (sees psychiatry). - Thyroid nodule: FNA on 09/2023 findings benign - Left breast nodule: Normal mammograms - Diffuse pulmonary nodule (stable) - GERD on Protonix 40 mg daily.active bladder on Myrbetriq 50 mg daily - Concern for interstitial cystitis or chronic pain bladder. To be fully worked up addressed during next visit Problems we co-manage -In addition to her psychiatric illnesses (managed by Dr. Nancie Mccormick of [facility]). Vital Signs: BP 143/70 Pulse 77 Temp (Src) 97.2 (Temporal) Resp 16 Ht 5' 5 (1.65m) Wt 169 lb (76.7kg) SpO2 99% BMI 28.12 kg/(m^2). Allergies: ALLERGIES Allergen Reactions Bee Venom Protein (* Shortness of Breath Latex, Natural Rubb* Rash Tape [Adhesive Tape* Rash Toradol [Ketorolac] Swelling Current Medications: pantoprazole DR (PROTONIX) 40 mg tablet Take 1 tablet by mouth once daily. albuterol HFA (PROVENTIL HFA) 90 mcg/actuation inhaler Inhale 2 Puffs as instructed every 4 hours as needed for wheezing/shortness of breath. Ascorbic Acid (VITAMIN C) 250 mg chew Take 2 tablets by mouth once daily. atorvastatin (LIPITOR) 40 mg tablet Take 1 tablet by mouth once daily. mirabegron (MYRBETRIQ) 50 mg Tb24 Take 1 tablet by mouth once daily. metoprolol succinate ER (TOPROL XL) 25 mg 24 hr tablet Take 0.5 tablets by mouth once daily. fluticasone (FLONASE) 50 mcg/actuation nasal spray Use 1 Mobile in each nostril once daily. Diclofenac Sodium 3 % gel aspirin (ANNI ASPIRIN) 325 mg tablet Take 650 mg by mouth once daily. Naproxen Sodium 550 mg tablet Take 1 tablet by mouth two times a day with meals. menthol (BIOFREEZE, MENTHOL,) 4 % topical gel Apply to affected area three times daily as needed. tiZANidine (ZANAFLEX) 4 mg tablet Take 1 tablet by mouth every 8 hours as needed. meloxicam (MOBIC) 15 mg tablet Take 1 tablet by mouth once daily as needed for pain. Iron 18 mg tab Take by mouth. lidocaine (LIDODERM) 5 % Apply 1 Patch as directed once daily. to affected area. Remove patch after 12 hours. lisinopril (ZESTRIL) 5 mg tablet Take 1 tablet by mouth once daily. SUMAtriptan (IMITREX) 50 mg tablet Take 1 tablet by mouth once daily as needed. nicotine (NICODERM CQ) 21 mg/24 hr Apply 1 Patch as directed every 24 hours. nicotine (NICOTROL) 10 mg inhaler Inhale 2 Puffs as instructed as needed. May use 2 puffs as needed for smoking cessation. docusate sodium (COLACE) 100 mg capsule docusate sodium 100 mg capsule EPINEPHrine (EPIPEN) 0.3 mg/0.3 mL auto-injector Inject 0.3 mg intramuscularly as needed. nicotine polacrilex (NICORETTE) 4 mg gum Take 4 mg by mouth as needed. Health Maintenance: Colonoscopy: Vaccination: There is no immunization history on file for this patient. 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[facility]) Chest pain stress test EF 70-71% 06/2021 COPD (chronic obstructive pulmonary disease) ([facility]) Dyslipidemia HFrEF (heart failure with reduced ejection fraction) ([facility]) border 40-45%, echo october 2019 Lung nodule Pericarditis 10/2019 with pericardial effusion Pre-diabetes PTSD (post-traumatic stress disorder) Tobacco abuse PAST SURGICAL HISTORY Procedure Laterality Date BREAST BIOPSY HX Right HYSTERECTOMY HX Social History Tobacco Use Smoking status: Every Day Packs/day: 0.50 Years: 44.00 Additional pack years: 0.00 Total pack years: 22.00 Types: Cigarettes Smokeless tobacco: Never Tobacco comments: down to 5 cigs per day, was smoking 3 PPD, started age 13 Vaping Use Vaping Use: Former Substance Use Topics Alcohol use: Never Drug use: Never FAMILY HISTORY Problem Relation Age of Onset Leukemia Father Breast Cancer Paternal cousin Review of Systems: constitutional Denies: Fever, Chills. Denies: Sick Contacts, Sweats, Weakness, Recent Illness. EENT Denies: Vision Change, Sore Throat. Cardiovascular Denies: Chest Pain, Palpitations. Pulmonary Denies: Dyspnea, Cough, Sputum, Recent Travel. Gastrointestinal Denies: Abdominal Pain, Nausea, Diarrhea, Loss of Appetite, Change in Bowel Habits, Other (abdominal bloating). Denies: Vomiting, Constipation, Hematochezia. Genitourinary Denies: Dysuria, Hematuria, Retention. Musculoskeletal Denies: Joint Pain, Joint Swelling. Skin Denies: Extremity Pain, Calf Pain. Lymphatic Denies: Ankle Swelling. Neuro Denies Headache. Denies: Syncope, Dizziness, Weakness, Difficulty with Speech. Exam: General: Patient is alert and oriented x3 and is in no acute respiratory distress HEENT: Normal cephalic, atraumatic, PERRLA, TM's normal, Nose clear, Mouth normal Neck: Negative hepatojugular reflux or jugular venous distention, negative carotid bruit. Lungs: Clear to auscultation, no wheezing, rales, or rhonchi. Cardiac: Regular rhythm and rate, S1-S2 within normal limits, no murmurs, gallops were appreciated, no rubs. Abdomen: Soft, nondistended, no HSM detected, bowel sounds are active. Negative prater's. Negative ese Extremities: No edema, cyanosis, or clubbing. Skin: No rashes or breakdown. Musculoskeletal: Normal MS exam, moves all extremities,. Bilateral upper shoulder paraspinal tenderness with no restriction in motion Lymphatic: Negative cervical,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 mammogram, pap smear and colonoscopy MOI CARTWRIGHT MD Discussed physical exam, assessement and plan with preceptor Dr. Brittany Willoughby and agreed upon the management of the patient. Discussed with patient the importance of continuity of care. I encouraged patient to schedule next appointment in 3 months with MOI CARTWRIGHT MD. Patient prefers to be contacted by phone. I reviewed the patient's medical history and physical examination with the resident and we discussed and agreed on the assessment and plan at the time of the office visit. Brittany Willoughby MD documented in this encounter [facility] 07-19-2023 Nurse Note Pt here today for routine follow up. Pt does need medications refilled at this time. Pt states that she is having issues with her bladder and has to wear depends documented in this encounter [facility] 06-24-2023 Miscellaneous Notes Called Patient informed of information below, patient voiced understanding. Shandra Parmar RN Please advise patient to take acetaminophen upto 1gram three times a day,OTC ( extra strength 500mg 2 tabs TID) till her appointment on 06/29/23. 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 Thanks Dr Orellana Pt fractured her wrist, and had gotten [place] in ER, Pt questioning if she can get a refill till she shes her Orth on the ? Christen Bey 12th documented in this encounter [facility] 06-13-2023 Miscellaneous Notes Images from the original note were not included. Charlie Alan MD You 3 days ago Ortho clinic You Charlie Alan MD 3 days ago CR This patient was seen in the ED on 06/09. You were nurse transition. Would you like to see this patient? Thanks, Court Please schedule with the Ortho Clinic. Thanks, Court ----- Message from Josephine Mendoza sent at 06/10/2023 12:57 PM EDT ----- Regarding: Orthopedics / Open Wrist: Fracture Broken / Recent ED Visit Subject Line Format: Orthopedics / [Provider Name or Open & Body Part] / [Issue] Patient has been identified by name and Date of (Y/N): Yes Patient: Joyce Maldonado Date of : 1965 Previous Provider Seen: open Body Part(s) Identified: left wrist Diagnosis/Reason For Visit: Broken Reason for the call/escalation:The patient called to make an appt for the left wrist fracture, the pt was seen in the ER recent and was told to follow up with ortho. I was not able to schedule the appt due to the ER visit. Please be sure to follow up with the patient on this matter. If reason for call/escalation is discharge from ED/ER or Hospital, which facility was the patient seen at: na Was an appointment scheduled (Y/N): no Person calling if other than patient: pt Return call to if other than patient: pt Best contact number: [phone] Thank you, Josephine Mendoza June 10, 2023 12:57 PM documented in this encounter [facility] 04-29-2023 Instructions Travis Schilling MD - 04/29/2023 3:46 PM EDT Again strongly advised on need to stop smoking She [facility] regarding the multiple lung nodules on CT scanning Recommended using CPAP-10cm for sleep apnea--does not wish to use. Follow up in 6-9 months. documented in this encounter [facility] 04-29-2023 History of Present illness Narrative ESTABLISHED PATIENT FOLLOW-UP CONSULT SERVICE DATE: 04/29/2023 PRIMARY CARE PHYSICIAN: Brittany Willoughby MD SUBJECTIVE CHIEF COMPLAINT: Follow tobacco use and CLARISSA noncompliant with +10cm CPAP. HPI: Joyce Maldonado is a 57 year old female here for follow up appointment for the above after last visit of 12/29/22. Joyce is feeling about the same having occasional SOB especially going up/down stairs. Coughs up greenish phlegm which is usual for her. No wheezing. No hemoptysis. No chest pain. Using PRN albuterol about once a week for VIDAL. Still smoking 1/2 PPD and vaping two different brands of low-nicotine products. Does the latter about twice a week. Does not wish to quit due to stress. Still not using CPAP +10cm and sleeps with two fans on her. ESS is 2. SOCIAL HISTORY: Social History Tobacco Use Smoking status: Every Day Packs/day: 0.50 Years: 44.00 Pack years: 22.00 Types: Cigarettes Smokeless tobacco: Never Tobacco comments: down to 5 cigs per day, was smoking 3 PPD, started age 13 Vaping Use Vaping Use: Former Substance Use Topics Alcohol use: Never Drug use: Never MEDICATIONS: Prior to Admission Medications (Not in a hospital admission) CURRENT ALLERGIES: ALLERGIES Allergen Reactions Bee Venom Protein (* Unknown Latex, Natural Rubb* Unknown Tape [Adhesive Tape* Unknown Toradol [Ketorolac] Unknown COMPLETE REVIEW OF SYSTEMS: GENERAL: No weight loss, malaise or fevers HEENT: Negative for frequent or significant headaches, No changes in hearing or vision, no nose bleeds or other nasal problems NECK: Negative for lumps, goiter, pain and significant neck swelling RESPIRATORY: See HPI. CARDIOVASCULAR: Negative for chest pain, leg swelling, hypertension, CHF or palpitations GI: No nausea, vomiting, or diarrhea : No history of dysuria, frequency or incontinence MUSCULOSKELETAL: Has had almost constant right lower back pain for about 3 months. SKIN: Negative for lesions, rash, and itching PSYCH: Negative for sleep disturbance, mood disorder and recent psychosocial stressors HEMATOLOGY/LYMPHOLOGY: Negative for prolonged bleeding, bruising easily or swollen nodes ENDOCRINE: Negative for cold or heat intolerance, polyuria, polydipsia and goiter NEURO: No history of headaches, syncope, paralysis, seizures or tremors The remainder of the ROS was negative. OBJECTIVE PHYSICAL EXAMINATION: VITAL SIGNS: BP 121/65 Pulse 70 Resp 17 Ht 5' 5 (1.65m) Wt 171 lb (77.6kg) SpO2 98% BMI 28.46 kg/(m^2). Neck size is 14 inches General appearance: Well-developed well-nourished Age appropriate female. Cordial. Comprehends well. Good hygiene. Skin: Normal turgor. Not pallorous. Not diaphoretic. No jaundice. No scars. No rashes. Eyes: Pupils equally reactive to light. Midline. No jaundice. Vision reasonable grossly. EOMI ENT: No palpable lymphadenopathy. Hearing intact. Normocephalic. No neck scar. No thyromegaly. Edentulous in the top and lower plates. No macroglossia. Supple neck. No carotid bruits. No venous hums. No retrognathia. Grade IV airway score. Heme/Lymph: No significant neck adenopathy. Negative JVD in the setting position Lungs: Coarse inspiratory BSs (as before) but o/w clear A&P bilaterally. Good inspiratory capacity. No overt wheeze. No pleural rub. Heart:: Regular rate and rhythm. Normal heart tones. No significant rub, or gallop. Murmur No. Edema- no. Normal P2 . No rub or ashley. ABD: Abdomen soft, non-tender. Bowel sounds normal. No masses, organomegaly. No bruits. Increased central girth Musculoskeletal: nl gait. No limp. Ambulation normal. Looks comfortable with walking. Extremities without cyanosis or clubbing. No deformities, No edema, or skin discoloration. Good capillary refill. Mild right lower back tenderness on palpation. No guarding. PSYCH: Alert. Responsive. Seems to comprehend reasonably well. Interactive. Engaged- yes, with good recall. Neuro: Nonfocal. Alert. Oriented. Speech intact. No gross cerebellar dysfunction. Gait observed as above. CN II-XII grossly intact. Sensory and motor function grossly within normal limits. DATA: Diagnostic tests reviewed for today's visit, films/specimens were personally reviewed by me: LAST LAB RESULTS: INR 0.91 06/20/2021 Prothrombin Time 9.8 06/20/2021 Glucose Date Value 01/25/2023 72 mg/dL 02/24/2022 84 MG/DL Potassium Date Value 01/25/2023 4.3 mmol/L 02/24/2022 4.1 MMOL/L Sodium Date Value 01/25/2023 141 mmol/L 02/24/2022 140 MMOL/L Chloride Date Value 01/25/2023 106 mmol/L 02/24/2022 107 MMOL/L CO2 Date Value 01/25/2023 33 mmol/L 02/24/2022 31.0 MMOL/L Creatinine Date Value 01/25/2023 1.43 mg/dL 02/24/2022 1.29 MG/DL BUN Date Value 01/25/2023 11 mg/dL 02/24/2022 14 MG/DL Anion Gap Date Value 01/25/2023 <3 mmol/L 02/24/2022 LESS THAN 3 MMOL/L Calcium (MG/DL) Date Value 02/24/2022 9.6 Calcium, Total (mg/dL) Date Value 01/25/2023 9.5 Protein, Total Date Value 01/25/2023 6.8 g/dL 12/26/2021 6.2 GM/DL Albumin Date Value 01/25/2023 3.5 g/dL 12/26/2021 3.4 GM/DL Bilirubin, Total Date Value 01/25/2023 <0.2 mg/dL 12/26/2021 0.20 MG/DL Alkaline Phosphatase (U/L) Date Value 01/25/2023 117 12/26/2021 106 AST (U/L) Date Value 01/25/2023 14 12/26/2021 11 ALT (U/L) Date Value 01/25/2023 16 12/26/2021 14 Glucose Date Value Ref Range Status 01/25/2023 72 70 - 100 mg/dL Final Comment: The [place] [employer] (ADA) provides guidance for cutoff values for fasting glucose and random glucose. The ADA defines fasting as no caloric intake for at least 8 hours. Fasting plasma glucose results between 100 to 125 mg/dL indicate increased risk for diabetes (prediabetes). Fasting plasma glucose results greater than or equal to 126 mg/dL meet the criteria for diagnosis of diabetes. In the absence of unequivocal hyperglycemia, results should be confirmed by repeat testing. In a patient with classic symptoms of hyperglycemia or hyperglycemic crisis, random plasma glucose results greater than or equal to 200 mg/dL meet the criteria for diagnosis of diabetes. Reference: Standards of Medical Care in Diabetes 2016, [place] [employer]. Diabetes Care. 2016.39(Suppl 1). Results may be falsely elevated after the administration of Sulfapyridine. Results may be falsely depressed after the administration of Sulfasalazine. CBC with diff: WBC 7.48 01/25/2023 RBC 5.21 01/25/2023 Hemoglobin 14.4 01/25/2023 Hematocrit 43.2 01/25/2023 MCV 82.9 01/25/2023 MCH 27.6 01/25/2023 MCHC 33.3 01/25/2023 RDW-CV 13.2 01/25/2023 Platelet Count 258 01/25/2023 MPV 8.1 01/25/2023 Neutrophils % 46.5 10/21/2022 Lymphocytes % 43.5 10/21/2022 [place]% 6.9 10/21/2022 Basophils % 0.9 10/21/2022 Abs Neut 2.62 10/21/2022 Abs [place] 0.39 10/21/2022 Abs Eosin 0.11 10/21/2022 Abs Baso 0.05 10/21/2022 OTHER TESTING: CT chest: 10/21/22 CTA PE: 10/21/2022 10:27 PM - Radiology, [place] In Impression IMPRESSION: No CT evidence of pulmonary embolism. The LEFT atrium and ventricle are mildly dilated. There is also reflux of contrast into the IVC and hepatic veins, suggesting component of RIGHT heart dysfunction. Thyroid nodules are again identified, largest in the LEFT lobe. Review of the imaging history reveals a thyroid ultrasound on 07/01/2022 recommending FNA of certain nodules. Indeterminate pulmonary nodules measuring up to 5 mm in the RIGHT lower lobe. These appear unchanged since 03/18/2022. Recommend follow-up management recommendations as discussed on comparison exam. Paraseptal emphysema. Details and incidental findings as discussed. Chest xray: 01/25/23: RESULT: Lines, tubes, and devices: None. Lungs and pleura: Bilateral lung christine are clear. No pneumothorax or suggestion for obvious/significant pleural effusions. Cardiomediastinal silhouette: Normal cardiomediastinal silhouette. Heart echo: 08/23/22: Impression CONCLUSIONS: - Exam indication: Chest Pain - The left ventricle is normal in size. Left ventricular systolic function is normal. EF = 55 5% (visual est.) Definity contrast used for endocardial border detection. - The right ventricle is normal in size. Right ventricular systolic function is normal. - NAT 12. - There are no significant valvular abnormalities. - Exam was compared with the prior echocardiographic exam performed on 11-17-21 Biopsy results: NA ======== SPIROMETRY WITH DILATOR IF OBSTRUCTED ([id number]) - ordered on 12/29/22 Normal except for [id number] of 79%. ASSESSMENT: 1. G47.33 CLARISSA (obstructive sleep apnea) (primary encounter diagnosis) Comment: Noncompliant with +10cm CPAP 2. F17.200 Tobacco use disorder Comment: Ongoing of 11/08 PPD 3. F17.290 Vaping nicotine dependence, tobacco product Comment: Ongoing with two different brands. 4. R91.[address] Multiple lung nodules on CT Comment: </=5mm RLL 5. Chronic right lower back pain--says she is to have a CT scan at [facility]. Near constantly PLAN: Again strongly advised on need to stop smoking She is [facility] regarding the multiple lung nodules on CT scanning Recommended using CPAP-10cm for sleep apnea--does not wish to use. Follow up in 6-9 months. Copy to Referring physician Thank you for allowing me to participate in this patient's care. SIGNATURE: Travis Schilling MD PATIENT NAME: Joyce Maldonado DATE: April 29, 2023 TIME: 3:46 PM PAGER/CONTACT #: [phone] documented in this encounter [facility] 04-29-2023 Nurse Note Industry 04/29/2023 Sitting and reading 0 - Never Watching TV 0 - Never Sitting/inactive in public place 0 - Never Car for an hour without break 0 - Never Lying down for rest (afternoon) 1 - Slight Chance Sitting and talking to someone 0 - Never Sitting quietly after lunch (no alcohol) 1 - Slight Chance In car, stopped in traffic 0 - Never Neck cir 14 inches documented in this encounter [facility] 04-27-2023 Miscellaneous Notes Ok, will do [facility] pharmacy called [facility] is no longer being made. Please send new prescription - Albuterol inhaler is available. [phone]. Information to Dr. Cartwright. documented in this encounter [facility] 04-21-2023 Instructions Moi Cartwright I, MD - 04/21/2023 2:56 PM EDT -Please follow-up with me in 3 months -You have been prescribed medications for the pain, please take as directed -Complete CT scan of your abdomen -Complete blood work as soon as possible documented in this encounter [facility] 04-21-2023 History of Present illness Narrative Joyce is a 57 year old female arriving at clinic today for chronic right flank pain. HPI: Problems we manage history of dyslipidemia on Lipitor, CLARISSA not on CPAP, bipolar disorder on Latuda, PTSD, caffeine abuse and tobacco abuse Problems we manage: We manage all her medical conditions except for psychiatric care (sees psychiatry). Patient is compliant on all her medications. - Thyroid nodule - Left breast nodule - Diffuse pulmonary nodule Problems we co-manage -In addition to her psychiatric illnesses (managed by Dr. Nancie Mccormick of [facility]). Per patient she has been having abdominal pain located in the right flank area for over a since January. Pain sometimes radiating around flank, 5/10, sharp, non-positional. Initially had pain during urination at the suprapubic area that has now resolved. At initial visit patient was prescribed bactrim. UA was normal and Pelvis US showed no scute finding and US abd showed gallbladder stone/sludge and fatty live. Patient has history of urinary incontinence for which she will wear pads. Per patient, her urinary frequency has increased in the recent days. No fever, chills, vaginal discharge. Patient also requesting refills at this time. Vital Signs: BP 120/70 Pulse 89 Temp 97.2 Resp 14 Ht 5' 5 (1.65m) Wt 168 lb 3.2 oz (76.3kg) SpO2 97% BMI 27.99 kg/(m^2). Allergies: ALLERGIES Allergen Reactions Bee Venom Protein (* Unknown Latex, Natural Rubb* Unknown Tape [Adhesive Tape* Unknown Toradol [Ketorolac] Unknown Current Medications: hydrOXYzine pamoate (VISTARIL) 25 mg capsule Take 1 capsule by mouth every evening. SUMAtriptan (IMITREX) 50 mg tablet Take 1 tablet by mouth once daily as needed. nicotine (NICODERM CQ) 21 mg/24 hr Apply 1 Patch as directed every 24 hours. atorvastatin (LIPITOR) 40 mg tablet Take 1 tablet by mouth once daily. lisinopril (ZESTRIL) 5 mg tablet Take 1 tablet by mouth once daily. sulfamethoxazole-trimethoprim (BACTRIM) 400-80 mg per tablet Take 1 tablet by mouth twice daily. Diclofenac Sodium 3 % gel Apply 0.5 g to affected area twice daily as needed. nicotine (NICOTROL) 10 mg inhaler Inhale 2 Puffs as instructed as needed. May use 2 puffs as needed for smoking cessation. docusate sodium (COLACE) 100 mg capsule docusate sodium 100 mg capsule metoprolol succinate ER (TOPROL XL) 25 mg 24 hr tablet Take 0.5 tablets by mouth once daily. PROAIR HFA 90 mcg/actuation inhaler Inhale 2-4 Puffs as instructed every 4 hours as needed. LATUDA 80 mg tablet Take 1 tablet by mouth once daily. aspirin 81 mg chewable tablet Take 1 tablet by mouth once daily. asneeded fluticasone (FLONASE) 50 mcg/actuation nasal spray Use 1 Mobile in each nostril once daily. EPINEPHrine (EPIPEN) 0.3 mg/0.3 mL auto-injector Inject 0.3 mg intramuscularly as needed. nicotine polacrilex (NICORETTE) 4 mg gum Take 4 mg by mouth as needed. pantoprazole DR (PROTONIX) 40 mg tablet Take 1 tablet by mouth once daily. Health Maintenance: Colonoscopy: Vaccination: There is no immunization history on file for this patient. 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[facility]) Chest pain stress test EF 70-71% 06/2021 COPD (chronic obstructive pulmonary disease) ([facility]) Dyslipidemia HFrEF (heart failure with reduced ejection fraction) ([facility]) border 40-45%, echo october 2019 Lung nodule Pericarditis 10/2019 with pericardial effusion Pre-diabetes PTSD (post-traumatic stress disorder) Tobacco abuse PAST SURGICAL HISTORY Procedure Laterality Date BREAST BIOPSY HX Right HYSTERECTOMY HX Social History Tobacco Use Smoking status: Every Day Packs/day: 0.50 Years: 44.00 Pack years: 22.00 Types: Cigarettes Smokeless tobacco: Never Tobacco comments: down to 5 cigs per day, was smoking 3 PPD, started age 13 Vaping Use Vaping Use: Former Substance Use Topics Alcohol use: Never Drug use: Never FAMILY HISTORY Problem Relation Age of Onset Leukemia Father Review of Systems: constitutional Denies: Fever, Chills. Denies: Sick Contacts, Sweats, Weakness, Recent Illness. EENT Denies: Vision Change, Sore Throat. Cardiovascular Denies: Chest Pain, Palpitations. Pulmonary Denies: Dyspnea, Cough, Sputum, Recent Travel. Gastrointestinal Denies: Abdominal Pain, Nausea, Diarrhea, Loss of Appetite, Change in Bowel Habits, Other (abdominal bloating). Denies: Vomiting, Constipation, Hematochezia. Genitourinary Denies: Dysuria, Hematuria, Retention. Musculoskeletal Denies: Joint Pain, Joint Swelling. Skin Denies: Extremity Pain, Calf Pain. Lymphatic Denies: Ankle Swelling. Neuro Denies Headache. Denies: Syncope, Dizziness, Weakness, Difficulty with Speech. Exam: General: Patient is alert and oriented x3 and is in no acute respiratory distress HEENT: Normal cephalic, atraumatic, PERRLA, TM's normal, Nose clear, Mouth normal Neck: Negative hepatojugular reflux or jugular venous distention, negative carotid bruit. Lungs: Clear to auscultation, no wheezing, rales, or rhonchi. Cardiac: Regular rhythm and rate, S1-S2 within normal limits, no murmurs, gallops were appreciated, no rubs. Abdomen: Soft, Right CVA tenderness, nondistended, no HSM detected, bowel sounds are active. Negative prater's. Negative ese Extremities: No edema, cyanosis, or clubbing. Skin: No rashes or breakdown. Musculoskeletal: Normal MS exam, moves all extremities, DTR's normal Lymphatic: Negative cervical, supra-clavicular lymphadenopathy. Neurologic: Cranial nerves from II-XII intact grossly, no focal deficits. Psychiatry: Normal affect. ASSESSMENT/PLAN: 1. Flank pain - ICD9: 789.09, ICD10: R10.9 (primary diagnosis) 01/2023-UA showed 6-10 RBC, 1+ rbc, and Pelvic US was wnl, Abdominal US show hepatic steatosis with gallbladder stones/sludge -Concern for nephrolithiasis vs chronic pancreatitis vs fractured rib -Will order CT abdomen/pelvis w/o contrast -Will check lipase to assess pancreatic function -Will prescribe PRN lidocaine patches and PRN tylenol for pain - LIPASE BLD 2. Other specified disorders of kidney and ureter - ICD9: 593.89, ICD10: N28.89 In conjunction to assessment #1 - CT ABDOMEN WO IVCON Next visit planning: f/u LDCT scan MOI CARTWRIGHT MD Discussed physical exam, assessement and plan with preceptor Dr. Brittany Willoughby and agreed upon the management of the patient. Discussed with patient the importance of continuity of care. I encouraged patient to schedule next appointment in 3 months with MOI CARTWRIGHT MD. Patient prefers to be contacted by phone. I reviewed the patient's medical history and physical examination with the resident and we discussed and agreed on the assessment and plan at the time of the office visit. Brittany Willoughby MD documented in this encounter [facility] 04-21-2023 Nurse Note Pt here for follow up. Pt needs refills on meds documented in this encounter [facility] 04-05-2023 Miscellaneous Notes Summary: 1 rx refill Pharmacy calls in requesting the following refill(s): Requested Prescriptions Pending Prescriptions Disp Refills hydrOXYzine pamoate (VISTARIL) 25 mg capsule 30 capsule Sig: Take 1 capsule by mouth every evening. documented in this encounter [facility] 02-28-2023 Miscellaneous Notes AO for Dr. Cartwright. Sent. Thank you. Pt calls in stating she needs Sumatriptan refill documented in this encounter [facility] 02-16-2023 Miscellaneous Notes Called patient and went to voicemail. Let voicemail about test results documented in this encounter [facility] 02-12-2023 Miscellaneous Notes Patient was seen in the office on 02/02 for an acute visit for abdominal pain. She was complaining of urinary symptoms therefore Bactrim was prescribed for 3 days. She completed the course of the antibiotics. UA was ordered for further evaluation. UA is unremarkable except for +1 blood. On the visit, patient did mention that her urine is dark. I called the patient to inform her about the UA results. She still complaining of right-sided flank pain. If the pain is not getting better she might need an acute visit for further evaluation. UA results forwarded to Dr. Cartwright documented in this encounter [facility] 02-09-2023 Miscellaneous Notes Patient requesting STD screen and mentions remote hx of CMV and requesting to be retested. Patient will be getting blood work tomorrow. Discussed US results documented in this encounter [facility] 02-09-2023 Miscellaneous Notes Patient was seen in the clinic by me for an acute visit. Ultrasound report did not show any acute abnormality. The ultrasound report was forwarded to the primary care provider Dr. Cartwright. PCP prefers to contact the patient herself and let her know about the results. Patient called requesting Ultrasound results (in chart). [phone]. Information to Dr. Santacruz - ordered by you on 01/20. Thanks! documented in this encounter [facility] 02-02-2023 Miscellaneous Notes US notified Thank you Ana Sarmiento LPN New order has been placed! Summary: incorrect US order Ultrasound dept called stating the ultrasound order that we have for the patient is incorrect the ultrasound order needs to be the: FEMALE PELVIS TRANSABDOMINAL (NOT THE LTD) AO can you please correct this order. Thank you documented in this encounter [facility] 02-02-2023 Miscellaneous Notes It appears pt scheduled appt on 01/28/23 with endo for July. Received fax from [facility] patient hasn't returned 2 phone calls so no appt scheduled (didn't mention specialty) Called Patient left message to call [facility] (call [facility] to schedule an appt [phone] Endo) Shandra Parmar RN documented in this encounter [facility] 01-27-2023 Miscellaneous Notes Pharmacy calls in requesting the following refill(s): Requested Prescriptions Pending Prescriptions Disp Refills atorvastatin (LIPITOR) 40 mg tablet 30 tablet 4 Sig: Take 1 tablet by mouth once daily. Shandra Parmar RN Thanks! documented in this encounter [facility] 01-21-2023 History of Present illness Narrative Joyce is a 57 year old female arriving at clinic today for Patient presents with: Acute Visit HPI: 56 years old Chinese-speaking female presents to the clinic for an acute. Per patient she has been having abdominal pain located in the right flank area for over a week. Also complains of pain during urination at the suprapubic area. Per patient, her urine is also dark in color. Also experiences the ureteral side. Patient has history of urinary incontinence for which she will wear pads. Per patient, her urinary frequency has increased in the recent days. No fever, chills, vaginal discharge. No diarrhea or constipation. Last stool passed a day ago. Also complains of intermittent chest pain. Per patient she experiences chest pain at rest as well as during exertion. Chest massage resolves the pain. The area is also tender to touch. No cough, shortness of breath. The patient recently had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 symptoms described are related to the irritant effects of the cigarette smoking. Will add Nicotrol inhaler to use two puffs as needed for smoking cessation up to a maximum of 18 times a day. Two refills given. Advised Joyce that vaping is also bad for her lungs and can damage them due to the solvents in the vape and also a small amount of nicotine that is present. Follow up in 3 months. Written and verbal health teaching given to patient, patient verbalizes understanding and agrees with treatment plan. Electronically Signed: Travis Schilling MD December 29, 2022 documented in this encounter [facility] 12-29-2022 History of Present illness Narrative PULM FUNCTION SMARTBLOCK: Provider: Charlene Guillen PA-C Assisting Tech: Jelly Heck RRT Spirometry: 1 DLCO: 1 documented in this encounter [facility] 12-27-2022 Instructions Percy Maynard MD - 12/27/2022 2:06 PM EST - Please use Imodium as needed after each loose stool -Please try to identify any specific diet causing diarrhea and avoid it - Please use Tylenol and Imitrex for your any headache episodes - Please follow-up with wrapper sheeter and law office assistant as scheduled documented in this encounter [facility] 12-27-2022 Nurse Note Pt here today and c/o headaches and diarrhea. documented in this encounter [facility] 12-27-2022 History of Present illness Narrative Joyce is a 57 year old female arriving at clinic today for follow-up visit for her recent diarrheal complaints PCP: Moi Nath HPI: Patient is a 56-year-old Chinese-speaking female with a history of dyslipidemia on Lipitor, CLARISSA not on CPAP, bipolar disorder on Latuda, PTSD, caffeine abuse and tobacco abuse who presents for follow-up visit for her ongoing diarrhea and chest pains. Problems we manage: We manage all her medical conditions except for psychiatric care (sees psychiatry). Patient is compliant on all her medications. - Thyroid nodule - Left breast nodule - Diffuse pulmonary nodule Problems we co-manage -In addition to her psychiatric illnesses (managed by Dr. Nancie Mccormick of [facility]). Patient previously had complained of ongoing soft to liquid brownish chunky stools, 1-2 bowel movements per day along with acid reflux symptoms worsening, seen in the clinic on 12/26/2021, was prescribed Imodium tablets for 4 weeks after every stool, prior to this clinic visit ER work-up with respiratory viral panel, CT PE protocol, EKG, lab work were unremarkable. Patient was ordered stool PCR along with CDF, CRP ESR, fecal calprotectin and protozoal tests, asked to follow-up with PCP in 4 weeks. Today patient comes to the clinic with reporting that her diarrhea has resolved after our last visit, was having normal regular soft stools for the last 2 months except for this morning when she had another episode of loose stool. Nonbloody, non-mucousy, soft to liquid in consistency. Patient attributes this episode of loose stool to her last night's dinner consisting of beef roast. Reports that whenever she has beef roast she gets diarrheal episodes. Patient has not got done her tests ordered in the previous clinical visit. Vital Signs: BP 120/80, heart rate 85, SPO2 98% on room air, RR 16 Allergies: ALLERGIES Allergen Reactions Bee Venom Protein (* Unknown Latex, Natural Rubb* Unknown Tape [Adhesive Tape* Unknown Toradol [Ketorolac] Unknown Current Medications: docusate sodium (COLACE) 100 mg capsule docusate sodium 100 mg capsule metoprolol succinate ER (TOPROL XL) 25 mg 24 hr tablet Take 0.5 tablets by mouth once daily. pantoprazole DR (PROTONIX) 40 mg tablet Take 1 tablet by mouth once daily. Diclofenac Sodium 3 % gel Apply 0.5 g to affected area twice daily as needed. atorvastatin (LIPITOR) 40 mg tablet Take 1 tablet by mouth once daily. PROAIR HFA 90 mcg/actuation inhaler Inhale 2-4 Puffs as instructed every 4 hours as needed. lisinopril (ZESTRIL, PRINIVIL) 5 mg tablet Take 1 tablet by mouth once daily. LATUDA 80 mg tablet Take 1 tablet by mouth once daily. aspirin 81 mg chewable tablet Take 1 tablet by mouth once daily. asneeded SUMAtriptan (IMITREX) 50 mg tablet Take 1 tablet by mouth once daily as needed. hydrOXYzine pamoate (VISTARIL) 25 mg capsule Take 1 capsule by mouth every evening. fluticasone (FLONASE) 50 mcg/actuation nasal spray Use 1 Mobile in each nostril once daily. EPINEPHrine (EPIPEN) 0.3 mg/0.3 mL auto-injector Inject 0.3 mg intramuscularly as needed. nicotine polacrilex (NICORETTE) 4 mg gum Take 4 mg by mouth as needed. Health Maintenance: Colonoscopy: Vaccination: There is no immunization history on file for this patient. 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[facility]) Chest pain stress test EF 70-71% 06/2021 COPD (chronic obstructive pulmonary disease) ([facility]) Dyslipidemia HFrEF (heart failure with reduced ejection fraction) ([facility]) border 40-45%, echo october 2019 Pericarditis 10/2019 with pericardial effusion Pre-diabetes PTSD (post-traumatic stress disorder) Tobacco abuse PAST SURGICAL HISTORY Procedure Laterality Date BREAST BIOPSY HX Right HYSTERECTOMY HX Social History Tobacco Use Smoking status: Every Day Packs/day: 2.50 Years: 44.00 Pack years: 110.00 Types: Cigarettes Smokeless tobacco: Never Tobacco comments: down to 5 cigs per day, was smoking 3 PPD, started age 13 Vaping Use Vaping Use: Former Substance Use Topics Alcohol use: Never Drug use: Never FAMILY HISTORY Problem Relation Age of Onset Leukemia Father Review of Systems: CONSTITUTIONAL: Patient denies fevers, chills, sweats and weight changes. EYES: Patient denies any visual symptoms. EARS, NOSE, AND THROAT: No difficulties with hearing. No symptoms of rhinitis or sore throat. CARDIOVASCULAR: Reports chest pains. Patient denies dyspnea, palpitations, orthopnea and paroxysmal nocturnal dyspnea. RESPIRATORY: No wheezing or cough. GI: Reports diarrhea. No nausea, vomiting, abdominal pain, hematochezia or melena. : No urinary hesitancy or dribbling. MUSCULOSKELETAL: No myalgias or arthralgias. NEUROLOGIC: No chronic headaches, no seizures. Patient denies numbness, tingling or weakness. PSYCHIATRIC: Patient denies problems with mood disturbance. No problems with anxiety. Exam: GENERAL APPEARANCE: Not in acute distress. EXTREMITIES: No cyanosis, clubbing. No edema HEENT: Normocephalic and atraumatic. No scleral icterus. JANES +, Oral cavity exam grossly normal NECK: Supple. Trachea is midline. No thyromegaly. No lymphadenopathy or tenderness. No JVD CHEST: Symmetric. Tender to palpation on costochondral joints. Breath sounds equal bilaterally. no wheezing. HEART: Regular heart rate. S1-S2 heard. No gallops/murmurs/rubs ABDOMEN: Soft, flat, and benign. No mass, tenderness, guarding, or rebound. No organomegaly or hernia. Bowel sounds are present. No CVA tenderness or flank mass. NEUROLOGIC: No gross focal sensory or motor deficits are noted. PSYCHIATRIC: Appropriate mood and affect. SKIN: Warm, dry, and well perfused. No clinically significant lesions are noted LYMPHATICS: No cervical, axillary, or groin adenopathy is noted. Assessment/plan: (R19.7) Diarrhea in adult patient - Patient was diarrhea free for past 2 months except for this morning experienced 1 episode of loose to soft brownish stools. Likely patient diarrheal episodes in October might be infectious in etiology, but with ongoing recurrent episodes especially worsened each time by specific dietary components (red meats) could be food allergy related. But other remote differentials like microscopic colitis could not be ruled out. Patient has been referred to GI, yet to schedule her colonoscopy. Will await colonoscopy results and manage further. Currently advised to continue her Imodium 1 pill after every loose stool. No new symptoms of fevers, weight changes, bloody stools, bloating/abdominal pain. Patient has not done her previous stool tests ordered, at this time will hold on those tests given symptoms resolution and upcoming GI appointment for colonoscopy. -Rest of the illnesses to be managed by PCP. Percy Maynard MD Discussed with patient the importance of continuity of care. I encouraged patient to schedule next appointment in 1 to 2 months with patient's own PCP Moi Nath. Patient prefers to be contacted by phone. Discussed findings and management with Dr. Willoughby, agrees with the above. I reviewed the patient's medical history and physical examination with the resident and we discussed and agreed on the assessment and plan at the time of the office visit. Brittany Willoughby MD documented in this encounter [facility] 12-06-2022 Miscellaneous Notes Called Patient informed you were referred to [facility] for your thyroid back in September. Offered phone number, patient was unable to write down number at this time. She requested clinic leave information on voice mailbox. Left KALINA Hughes's phone number on voice mailbox per patient's request. Shandra Parmar RN Pt states when she saw 10/25/22 she thought she was being referred for her Thyroid. Pt next syed appt is 12/27/[address] Maynard for 10/25/22 fu. documented in this encounter [facility] 11-03-2022 Miscellaneous Notes [facility] patient was referred for screening colonoscopy however unable to reach patient. [phone] Called Patient informed of above, phone number given and instructed to call for an appt, patient voiced understanding. Shandra Parmar RN documented in this encounter [facility] 10-28-2022 History of Present illness Narrative Chief Complaint: 6 mos follow-up from LDCT scan dated 03/18/2022 for LUNG RADS Category 3 finding of scattered subcentimeter nodules which are primarily in juxtapleural in location measuring up to 6 mm Current or Ex-smoker? [Current Exam Type: follow-up LDCT Number of Pack Years: 110 Current smoker (=0) History of Present Illness: Joyce Maldonado is a 57 year old female who is presenting today for lung cancer screening visit. However, she had LDCT 03/2022 Lung Rads category 3 and 6 mos follow up was recommended for multiple pulmonary nodules up to 6 mm. She presented to ER for chest pain and had CT W IVCON PE 10/18/2022. We will do a follow up lung nodule visit today. Patient has a PMH significant for hyperlipidemia, heart failure, CLARISSA, goiter, bipolar, and lung nodules. Patient is a current smoker with a 110 pack year history. Currently still smoking down to 5 cigs/daily. Cut back when she was told about the lung nodules. She did have a recent respiratory infection. She has been treated with 2 rounds of z pack and prednisone. She is improving but still having some chest discomfort. She has albuterol, and is using it once daily to every other day. The patient does not require assistance with normal activities of daily living. Modified Medical Research [place] Dyspnea Scale (MMRC) I get short of breath when hurrying on level ground or walking up a slight hill 1 CLARISSA not using CPAP Patient's appetite is good and weight is stable. Unintentional weight loss: No SOB: No Chest tightness: Yes heavy weight in chest Coughing: Yes: With mucus Clearbrown to clear Hemoptysis: No Fever/Chills: Yeschills with shivering yesterday with illness Wheezing: No Medication Treatment: How often are you using your rescue inhaler?: albuterol once daily to every other day. 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[facility]) Chest pain stress test EF 70-71% 06/2021 COPD (chronic obstructive pulmonary disease) ([facility]) Dyslipidemia HFrEF (heart failure with reduced ejection fraction) ([facility]) border 40-45%, echo october 2019 Pericarditis 10/2019 with pericardial effusion Pre-diabetes PTSD (post-traumatic stress disorder) Tobacco abuse Surgical Hx: PAST SURGICAL HISTORY Procedure Laterality Date BREAST BIOPSY HX Right HYSTERECTOMY HX Family Hx: FAMILY HISTORY Problem Relation Age of Onset Leukemia Father Allergies: ALLERGIES Allergen Reactions Bee Venom Protein (* Unknown Latex, Natural Rubb* Unknown Tape [Adhesive Tape* Unknown Toradol [Ketorolac] Unknown Social History Tobacco Use: .25 packs/day, for 40 years. Types: Cigarettes Review Of Systems: REVIEW OF SYSTEMS GENERAL: No weight loss, malaise or fevers HEENT: SEE HPI NECK: See HPI RESPIRATORY: See HPI CARDIOVASCULAR: See HPI Last 12 Encounter Wt Readings: Date: Wt: 10/28/2022 77.1 kg (170 lb) 10/25/2022 76.7 kg (169 lb) 10/21/2022 76.7 kg (169 lb) 09/23/2022 77 kg (169 lb 12.8 oz) 08/22/2022 81.4 kg (179 lb 7.3 oz) PHYSICAL EXAMINATION: BP 111/66 Pulse 72 Resp 16 Ht 5' 5 (1.65m) Wt 170 lb (77.1kg) SpO2 98% BMI 28.29 kg/(m^2). General appearance: well appearing, in no acute distress, and alert Skin: skin color, texture, turgor normal, no rashes or lesions Nose/Sinuses: Negative Neck: Negative findings: no adenopathy Respiratory: lungs clear to auscultation no wheezing or rhonchi Cardiovascular: RRR without murmur, gallop, or rubs. No ectopy Musculoskeletal: Edema: none Neuro: Oriented X 3 Data Review I have visually reviewed imaging and testing below CT Chest W IVCON 10/21/2022 and 03/18/[address] Chest W IVCON 10/21/2022 noted two 5 mm indeterminate pulmonary nodules: RUL adjacent to the major fissure, 5 mm, series 3, image 160. 03/18/2022 seen on Series 3 slice 43. RLL adjacent to the major fissure, 5 mm, series 3, image 93. 03/18/2022 CT seen on series 3 slice 87. Additional nodules seen on 10/21/2022 CT 10/21/2022 SUPRIYA pleural(3: 184). 03/18/2022 (3:28) 10/21/2022 SUPRIYA pleural(3:179). 03/18/2022 (3: 31) 10/21/2022 RUL Pleural(3:175). 03/18/22 (3:36) 10/21/2022 LLL pleural (3:107). 03/18/2022 (3:75) 03/18/2022 CT Lung Screen: The major airways are clear. The lungs are mildly emphysematous with mild biapical pleural scarring. There are scattered subcentimeter nodules which are primarily in juxtapleural in location measuring up to 6 mm in average diameter. Last CT/CTA Chest/Lungs CT CHEST W IVCON PE Exam End: 10/21/2022 9:57 PM (Final result) Narrative: * * *Final Report* * * DATE OF EXAM: Oct 21 2022 9:57PM [facility] 0540 - CT CHEST W IVCON PE / PROCEDURE REASON: Pulmonary embolism (PE) suspected, high prob * * * * Physician Interpretation * * * * EXAMINATION: CHEST CT WITH CONTRAST (PULMONARY EMBOLISM PROTOCOL) CLINICAL HISTORY: Pulmonary embolism (PE) suspected, high probability. Technique: Spiral CT acquisition of the chest from the thoracic inlet to the upper abdomen following IV contrast. Axial 1 and 3 mm thick slices plus coronal and sagittal reformatted images. MQ: CTCP_5 Contrast: 85 mL Visipaque [address] Radiation dose: Integrated Dose-length product (DLP) for this visit = 461.04 mGy*cm CT Dose Reduction Employed: Automated exposure control(AEC) and iterative recon Comparison: 03/18/2022 RESULT: Limitations: None. Evaluation for thromboembolic disease: - Right heart chambers: No thromboembolic disease. - Main pulmonary arteries: No thromboembolic disease. - Lobar pulmonary arteries: No thromboembolic disease. - Segmental pulmonary arteries: No thromboembolic disease. - Subsegmental pulmonary arteries: No thromboembolic disease. - Additional pulmonary artery findings: The main pulmonary artery is normal in caliber. Lines, tubes, and devices: None. Lung parenchyma and airways: No consolidation. Paraseptal emphysema. There are two 5 mm indeterminate pulmonary nodules in the RIGHT upper lobe adjacent to the major fissure, series 3, image 160. 5 mm noncalcified indeterminate nodule in the RIGHT lower lobe adjacent to the major fissure, series 3, image 93. The central airways are patent. Pleural space: No pleural effusion. No pneumothorax. Lower neck, lymph nodes, and mediastinum: Thyroid nodules are again identified, largest in the LEFT lobe. Review of the imaging history reveals a thyroid ultrasound on 07/01/2022 recommending FNA of certain nodules. No lymphadenopathy in the supraclavicular, axillary, mediastinal, or hilar regions. Heart, pericardium, and thoracic vessels: The thoracic aorta is normal in caliber. The LEFT atrium and ventricle are mildly dilated. There is also reflux of contrast into the IVC and hepatic veins, suggesting component of RIGHT heart dysfunction. No coronary artery atherosclerotic calcifications are noted, although the study is not optimized for coronary assessment. No pericardial effusion or thickening. Bones and soft tissues: Prominent degenerative change in the cervical spine. Mild degenerative change of the thoracic spine. Upper abdomen: Unremarkable. Marine Firer (topogram) images: No additional findings. Impression: IMPRESSION: No CT evidence of pulmonary embolism. The LEFT atrium and ventricle are mildly dilated. There is also reflux of contrast into the IVC and hepatic veins, suggesting component of RIGHT heart dysfunction. Thyroid nodules are again identified, largest in the LEFT lobe. Review of the imaging history reveals a thyroid ultrasound on 07/01/2022 recommending FNA of certain nodules. Indeterminate pulmonary nodules measuring up to 5 mm in the RIGHT lower lobe. These appear unchanged since 03/18/2022. Recommend follow-up management recommendations as discussed on comparison exam. Paraseptal emphysema. Details and incidental findings as discussed. Data Review Specialist: ORTIZ Transcribe Date/Time: Oct 21 2022 10:12P Dictated by : CAROL PATEL MD This examination was interpreted and the report reviewed and electronically signed by: CAROL PATEL MD on Oct 21 2022 10:25PM EST Last CT Chest - Impression Only CT CHEST W IVCON PE Exam End: 10/21/2022 9:57 PM (Final result) Impression: IMPRESSION: No CT evidence of pulmonary embolism. The LEFT atrium and ventricle are mildly dilated. There is also reflux of contrast into the IVC and hepatic veins, suggesting component of RIGHT heart dysfunction. Thyroid nodules are again identified, largest in the LEFT lobe. Review of the imaging history reveals a thyroid ultrasound on 07/01/2022 ... Last XR Chest - Impression Only XR CHEST 1V FRONTAL PORT Exam End: 08/22/2022 5:09 PM (Final result) Impression: IMPRESSION: No acute cardiopulmonary disease. Data Review Specialist: ORTIZ Transcribe Date/Time: Aug 22 2022 5:33P ... Prior PFTS: None No textual results found for the specified procedure(s). Assessment and Plan: 1. Pulmonary Nodule: CT Chest W IVCON 10/21/2022 noted two 5 mm indeterminate pulmonary nodules: RUL adjacent to the major fissure, 5 mm, series 3, image 160. 03/18/2022 seen on Series 3 slice 43. RLL adjacent to the major fissure, 5 mm, series 3, image 93. 03/18/2022 CT seen on series 3 slice 87. Additional nodules seen on 10/21/2022 CT 10/21/2022 SUPRIYA pleural(3: 184). 03/18/2022 (3:28) 10/21/2022 SUPRIYA pleural(3:179). 03/18/2022 (3: 31) 10/21/2022 RUL Pleural(3:175). 03/18/22 (3:36) 10/21/2022 LLL pleural (3:107). 03/18/2022 (3:75) No new nodules were seen and plan will be to repeat CT Lung Screen in 12 mos with Lung cancer screening visit. 2. Shortness of breath: Mostly with exertion. Using rescue inhaler regularly- once a day. Emphysema seen on CT scan. Will get spirometry and DLCO and consult with pulmonology for treatment of likely COPD. 3. Tobacco use-cigarettes: Recommended smoking cessation. Pt is using behavior modifications and reducing amount smoked from 60 cigarettes a day to 5 cigs per day. She has nicotine gum and we reviewed instructions for use. Jennifer Yanez APRN.COMMUNICATIONS PROGRAM MANAGER October 28, 2022 10:27 AM Medical Decision Making: Problems: Moderate: 2+ stable chronic illnesses Data: Unique test result(s) reviewed: 2 Unique test(s) ordered: 2 Independent interpretation of test from other physician/QHCP Risk: Low: Low risk from testing/treatment Medical Decision Making Level: 4 - Moderate Reviewed and agree with Jennifer Yanez's assessment and plan. Charlene Guillen PA-C documented in this encounter [facility] 10-27-2022 Miscellaneous Notes Pharmacy calls in requesting the following refill(s): Requested Prescriptions Pending Prescriptions Disp Refills metoprolol succinate ER (TOPROL XL) 25 mg 24 hr tablet 15 tablet 4 Sig: Take 0.5 tablets by mouth once daily. Shandra Parmar RN Thanks! documented in this encounter [facility] 10-25-2022 Instructions Percy Maynard MD - 10/25/2022 4:10 PM EST - For your ongoing diarrhea, we have increased Imodium to 3-4 times per day maximum. please take Imodium tablet once every after each diarrheal episode. We have ordered viral and bacterial stool tests, please have it completed. -For your ongoing epigastric/chest pain, we have ordered pantoprazole for likely ongoing acid reflux. - Please follow-up with your PCP in 3 to 4 weeks. If any symptoms worsen, please call either clinic or go to ER based on urgency. documented in this encounter [facility] 10-25-2022 History of Present illness Narrative HPI: Patient is a 56-year-old Chinese-speaking female with a history of dyslipidemia on Lipitor, CLARISSA not on CPAP, bipolar disorder on Latuda, PTSD, caffeine abuse and tobacco abuse who presents for acute visit for her ongoing diarrhea and chest pains. Problems we manage: We manage all her medical conditions except for psychiatric care (sees psychiatry). Patient is compliant on all her medications. - Thyroid nodule - Left breast nodule - Diffuse pulmonary nodule Problems we co-manage -In addition to her psychiatric illnesses (managed by Dr. Nancie Mccormick of [facility]). Comes to the clinic today as an acute visit for her ongoing diarrhea and chest pains. Reports that she has been experiencing loose stools since past 4 weeks, with frequency of 1-2 BMs per day, brownish chunky soft to liquid in consistency stools. Also reports that she has been incontinent once in the past 1 week, had to herrera to bathroom but soiled herself. Has not had any stool tests before. Visited ER on 10/21/2022, was given Imodium sent home later. Since then patient has been taking Imodium only once daily but is no improvement in her loose stools. Patient also reports that, in the ER on 10/21/2022, patient was diagnosed to have upper respiratory tract infections, was given Z-Itz with prednisone therapy for 5 days. Has finished the course of therapy, though cough and fatigue improved but still experiencing some amount of chest pains. Reports that her chest pains are central in nature, worsens with activities like bending forward and taking food. Was diagnosed with GERD, but not on PPIs. Currently experiencing heartburn sensation in the chest. In the ER, viral respiratory panel negative, CT PE protocol chest scan negative for PE with some concerns for emphysema. Vital Signs: BP 110/70 Pulse 90 Temp 95.9 Resp 20 Wt 169 lb (76.7kg) SpO2 97% Allergies: ALLERGIES Allergen Reactions Bee Venom Protein (* Unknown Latex, Natural Rubb* Unknown Tape [Adhesive Tape* Unknown Toradol [Ketorolac] Unknown Current Medications: predniSONE (DELTASONE) 20 mg tablet Take 3 tablets by mouth once daily for 4 days. azithromycin (ZITHROMAX) 250 mg tablet Take 2 tablets by mouth once daily for 1 day, THEN 1 tablet once daily for 4 days. loperamide (IMODIUM) 2 mg cap(s) Take 1 capsule by mouth three times daily as needed. Diclofenac Sodium 3 % gel Apply 0.5 g to affected area twice daily as needed. atorvastatin (LIPITOR) 40 mg tablet Take 1 tablet by mouth once daily. PROAIR HFA 90 mcg/actuation inhaler Inhale 2-4 Puffs as instructed every 4 hours as needed. lisinopril (ZESTRIL, PRINIVIL) 5 mg tablet Take 1 tablet by mouth once daily. LATUDA 80 mg tablet Take 1 tablet by mouth once daily. aspirin 81 mg chewable tablet Take 1 tablet by mouth once daily. asneeded SUMAtriptan (IMITREX) 50 mg tablet Take 1 tablet by mouth once daily as needed. metoprolol succinate ER (TOPROL XL) 25 mg 24 hr tablet Take 0.5 tablets by mouth once daily. hydrOXYzine pamoate (VISTARIL) 25 mg capsule Take 1 capsule by mouth every evening. melatonin 5 mg tablet Take 5 mg by mouth daily at bedtime. fluticasone (FLONASE) 50 mcg/actuation nasal spray Use 1 Mobile in each nostril once daily. EPINEPHrine (EPIPEN) 0.3 mg/0.3 mL auto-injector Inject 0.3 mg intramuscularly as needed. nicotine polacrilex (NICORETTE) 4 mg gum Take 4 mg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 Referral 06/06/2022 07/06/2023 1 1 [facility] for referral (narrative)* Diagnostic Procedure Only (Routine) - Authorized Specialty Diagnoses / Procedures Referred By Contac t Referred To Contact [facility] Diagnoses Generalized abdominal pain Procedures US FEMALE PELVIS TRANSABD LTD US PELVIC NONOBSTETRIC IMAGE DCMTN LIMITED/F/U Concepcion Kennedy MD [address] [place] [address] [facility] Referral ID Status Reason Start Date Expiration Date Visits Requested Visits Authorized [id number] Authorized Auto-Generat ed Referral 01/20/2023 02/19/2024 1 1 * Diagnostic Procedure Only (Routine) - Authorized Specialty Diagnoses / Procedures Referred By Contac t Referred To Contact [facility] Diagnoses Generalized abdominal pain Procedures US ABDOMEN COMPLETE US ABDOMINAL REAL TIME W/IMAGE DOCUMENTATION Concepcion Kennedy MD [address] [place] [address] [facility] Referral ID Status Reason Start Date Expiration Date Visits Requested Visits Authorized [id number] Authorized Auto-Generat ed Referral 01/20/2023 02/19/2024 1 1 [facility] for referral (narrative)* Diagnostic Procedure Only (Routine) - Pending Review Specialty Diagnoses / Procedures Referred By Contac t Referred To Contact [facility] Diagnoses Generalized abdominal pain Procedures US FEMALE PELVIS TRANSABD COMPLETE US PELVIC NONOBSTETRIC REAL-TIME IMAGE COMPLETE Brittany Willoughby MD [address] [place] [address] [facility] Referral ID Status Reason Start Date Expiration Date Visits Requested Visits Authorized [id number] Pending Review Auto-Generat ed Referral 02/02/2023 03/03/2024 1 1 [facility] for referral (narrative)* Diagnostic Procedure Only (Routine) - Closed Specialty Diagnoses / Procedures Referred By Contac t Referred To Contact [facility] IM[facility] Diagnoses Generalized abdominal pain Procedures US ABDOMEN COMPLETE US ABDOMINAL REAL TIME W/IMAGE DOCUMENTATION Concepcion Kennedy MD [address] [place] [address] [facility] Referral ID Status Reason Start Date Expiration Date V isits Requested Visits Authorized [id number] Closed Auto-Generate d Referral 01/20/2023 02/19/2024 1 1 [facility] for referral (narrative)* Diagnostic Procedure Only (Routine) - Pending Review Specialty Diagnoses / Procedures Referred By Contac t Referred To Contact [facility] Diagnoses Nontoxic goiter, unspecified Procedures US THYROID/PARATHYROID US SOFT TISSUE HEAD & NECK REAL TIME IMGE Modesto Arnold MD [address] [facility] [address] [place] [address] [place] [address] Referral ID Status Reason Start Date Expiration Date Visits Requested Visits Authorized [id number] Pending Review Auto-Generat ed Referral 3 09/25/2024 1 1 [facility] for referral (narrative)* Diagnostic Procedure Only (Routine) - Closed Specialty Diagnoses / Procedures Referred By Drake tolentino Referred To Contact [facility] Diagnoses Breast cancer screening by mammogram Procedures KIMBERLEY SCREENING SCREENING MAMMOGRAPHY BI 2-VIEW BREAST INC CAD Brittany Willoughby MD [address] [place] [address] [facility] [address] [place] [address] Referral ID Status Reason Start Date Expiration Date V isits Requested Visits Authorized [id number] Closed Auto-Generate d Referral 02/27/2024 03/28/2025 1 1 [facility] for referral (narrative)* Diagnostic Procedure Only (Routine) - Pending Review Specialty Diagnoses / Procedures Referred By Drake tolentino Referred To Contact [facility] Diagnoses Mass of left breast, unspecified quadrant Procedures US BREAST LTD LEFT US BREAST UNI REAL TIME WITH IMAGE LIMITED Brittany Willoughby MD [address] [place] [address] [facility] [address] [employer] [place] [employer] [address] Referral ID Status Reason Start Date Expiration Date Visits Requested Visits Authorized [id number] Pending Review Auto-Generat ed Referral 02/29/2024 03/30/2025 1 1 * Diagnostic Procedure Only (Routine) - Pending Review Specialty Diagnoses / Procedures [facility] Referred To Contact [facility] Diagnoses Mass of left breast, unspecified quadrant Procedures KIMBERLEY DIAGNOSTIC BILATERAL DIAGNOSTIC MAMMOGRAPHY COMPUTER-AIDED DETCJ BI Brittany Willoughby MD [address] [place] [address] [facility] [address] [place] [address] Referral ID Status Reason Start Date Expiration Date Visits Requested Visits Authorized [id number] Pending Review Auto-Generat ed Referral 02/29/2024 03/30/2025 1 1 [facility] for referral (narrative)* Outpatient Procedure (Routine) - Pending Review Specialty Diagnoses / Procedures Referred By Contac t Referred To Contact [facility] Diagnoses Vaping nicotine dependence, tobacco product Shortness of breath Procedures LUNG DIFFUSION CAPACITY (DLCO) DIFFUSING CAPACITY Radha Dey APRN.COMMUNICATIONS PROGRAM MANAGER [address] [place] [address] [address] Referral ID Status Reason Start Date Expiration Date Visits Requested Visits Authorized [id number] Pending Review Auto-Generat ed Referral 04/06/2024 05/06/2025 1 1 * Outpatient Procedure (Routine) - Pending Review Specialty Diagnoses / Procedures Referred By Contac t Referred To Contact [facility] Diagnoses Vaping nicotine dependence, tobacco product Shortness of breath Procedures LUNG VOLUMES Radha Dey APRN.COMMUNICATIONS PROGRAM MANAGER [address] [place] [address] [address] Referral ID Status Reason Start Date Expiration Date Visits Requested Visits Authorized [id number] Pending Review Auto-Generat ed Referral 04/06/2024 05/06/2025 1 1 * Outpatient Procedure (Routine) - Pending Review Specialty Diagnoses / Procedures Referred By Contac t Referred To [facility] Diagnoses Vaping nicotine dependence, tobacco product Shortness of breath Procedures NITRIC OXIDE, EXHALED NITRIC OXIDE GAS DETERMINATION Radha Dey APRN.COMMUNICATIONS PROGRAM MANAGER [address] [place] [address] [address] Referral ID Status Reason Start Date Expiration Date Visits Requested Visits Authorized [id number] Pending Review Auto-Generat ed Referral 04/06/2024 05/06/2025 1 1 * Outpatient Procedure (Routine) - Pending Review Specialty Diagnoses / Procedures Referred By Contac t Referred To [facility] Diagnoses Vaping nicotine dependence, tobacco product Shortness of breath Procedures SPIROMETRY - BASELINE AND POST DILATOR BRNCDILAT RSPSE SPMTRY PRE&POST-BRNCDILAT Radha Washington APRN.COMMUNICATIONS PROGRAM MANAGER [address] [place] [address] [facility] [address] [place] [address] Referral ID Status Reason Start Date Expiration Date Visits Requested Visits Authorized [id number] Pending Review Auto-Generat ed Referral 04/06/2024 05/06/2025 1 1 [facility] for referral (narrative)* Outpatient Procedure (Routine) - New Request Specialty Diagnoses / Procedures Referred By Contac t Referred To Contact [facility] Diagnoses Screen for colon cancer Procedures COLONOSCOPY SCREENING COLONOSCOPY FLX DX W/COLLJ SPEC WHEN PFRMD Red Tucker MD [address] [place] [address] [facility] [place] [address] [place], [place] [id number] Referral ID Status Reason Start Date Expiration Date Visits Requested Visits Authorized [id number] New Request Auto-Generat ed Referral 05/24/2024 05/24/2025 1 1 [facility] for referral (narrative)* Diagnostic Procedure Only (Routine) - Closed Specialty Diagnoses / Procedures Referred By Contac t Referred To Contact [facility] Diagnoses Mass of left breast, unspecified quadrant Procedures US BREAST LTD LEFT US BREAST UNI REAL TIME WITH IMAGE LIMITED Brittany Willoughby MD [address] [place] [address] [facility] [address] [place] [address] Referral ID Status Reason Start Date Expiration Date V isits Requested Visits Authorized [id number] Closed Auto-Generate d Referral 02/29/2024 03/30/2025 1 1 [facility] for referral (narrative)* Diagnostic Procedure Only (Routine) - New Request Specialty Diagnoses / Procedures Referred By Contac t Referred To Contact [facility] Diagnoses Esophageal dysphagia Procedures XR ESOPHAGRAM RADIOLOGIC EXAM ESOPHAGUS SINGLE CONTRAST STUDY Radha Dey APRN.COMMUNICATIONS PROGRAM MANAGER [address] [place] [address] [place] [id number] Referral ID Status Reason Start Date Expiration Date Visits Requested Visits Authorized [id number] New Request Auto-Generat ed Referral 06/21/2024 07/21/2025 1 1 [facility] for referral (narrative)* Outpatient Procedure (Routine) - Closed Specialty Diagnoses / Procedures Referred By Contac t Referred To Contact [facility] Diagnoses Screen for colon cancer Procedures COLONOSCOPY SCREENING COLONOSCOPY FLX DX W/COLLJ SPEC WHEN PFRMD Red Tucker MD [address] [facility] [address] [place] [address] [facility] [address] [place] [address] Referral ID Status Reason Start Date Expiration Date V isits Requested Visits Authorized [id number] Closed Auto-Generate d Referral 05/24/2024 05/24/2025 1 1 [facility] for referral (narrative)* Diagnostic Procedure Only (Routine) - New Request Specialty Diagnoses / Procedures Referred By Contac t Referred To Contact [facility] Diagnoses Nontoxic goiter, unspecified Procedures US THYROID/PARATHYROID US SOFT TISSUE HEAD & NECK REAL TIME IMGE DOCModesto Lal MD [address] [facility] [address] [place] [address] [place] [address] Referral ID Status Reason Start Date Expiration Date Visits Requested Visits Authorized [id number] New Request Auto-Generat ed Referral 07/30/2024 08/29/2025 1 1 [facility] for visit Narrative* Diagnostic Procedure Only (Routine) - Closed Specialty Diagnoses / Procedures Referred By Contac t Referred To Contact [facility] Diagnoses Generalized abdominal pain Procedures US FEMALE PELVIS TRANSABD LTD US PELVIC NONOBSTETRIC IMAGE DCMTN LIMITED/F/U Concepcion Kennedy MD [address] [facility] [address] [place] [address] [facility] Imaging Referral ID Status Reason Start Date Expiration Date V isits Requested Visits Authorized [id number] Closed Auto-Generate d Referral 01/20/2023 02/19/2024 1 1 [facility] for visit Narrative* Diagnostic Procedure Only (Routine) - Closed Specialty Diagnoses / Procedures Referred By Contac t Referred To Contact [facility] Diagnoses Generalized abdominal pain Procedures US ABDOMEN COMPLETE US ABDOMINAL REAL TIME W/IMAGE DOCUMENTATION Concepcion Kennedy MD [address] [facility] [address] [place] [address] Us Imaging Referral ID Status Reason Start Date Expiration Date V isits Requested Visits Authorized [id number] Closed Auto-Generate d Referral 01/20/2023 02/19/2024 1 1 [facility] for visit Narrative* Diagnostic Procedure Only (Routine) - Closed Specialty Diagnoses / Procedures Referred By Contac t Referred To Contact [facility] Diagnoses Nontoxic goiter, unspecified Procedures US THYROID/PARATHYROID US SOFT TISSUE HEAD & NECK REAL TIME IMGE DOCM Modesto Akins MD [address] [facility] [address] [place] [address] [place] [address] Referral ID Status Reason Start Date Expiration Date V isits Requested Visits Authorized [id number] Closed Auto-Generate d Referral 08/27/2023 09/25/2024 1 1 [facility] for visit Narrative* Diagnostic Procedure Only (Routine) - Closed Specialty Diagnoses / Procedures Referred By Contac t Referred To Contact [facility] Diagnoses Breast cancer screening by mammogram Procedures KIMBERLEY SCREENING SCREENING MAMMOGRAPHY BI 2-VIEW BREAST INC CAD Brittany Willoughby MD [address] [place] [address] [facility] [address] [place] [address] Referral ID Status Reason Start Date Expiration Date V isits Requested Visits Authorized [id number] Closed Auto-Generate d Referral 02/27/2024 03/28/2025 1 1 [facility] for visit Narrative* Diagnostic Procedure Only (Routine) - Closed Specialty Diagnoses / Procedures Referred By Contac t Referred To Contact [facility] Diagnoses Mass of left breast, unspecified quadrant Procedures KIMBERLEY DIAGNOSTIC BILATERAL DIAGNOSTIC MAMMOGRAPHY COMPUTER-AIDED DETCJ BI Brittany Willoughby MD [address] [place] [address] [facility] [address] [place] [address] Referral ID Status Reason Start Date Expiration Date V isits Requested Visits Authorized [id number] Closed Auto-Generate d Referral 02/29/2024 03/30/2025 1 1 [facility] for visit Narrative* Outpatient Procedure (Routine) - Closed Specialty Diagnoses / Procedures Referred By Contac t Referred To Contact [facility] Diagnoses Screen for colon cancer Procedures COLONOSCOPY SCREENING COLONOSCOPY FLX DX W/COLLJ SPEC WHEN PFRed Storey MD [address] [place] [address] [facility] [address] [place] [address] Referral ID Status Reason Start Date Expiration Date V isits Requested Visits Authorized [id number] Closed Auto-Generate d Referral 05/24/2024 05/24/2025 1 1 [facility] for visit Narrative* Diagnostic Procedure Only (Routine) - Closed Specialty Diagnoses / Procedures Referred By Contac t Referred To Contact [facility] Diagnoses Nontoxic goiter, unspecified Procedures US THYROID/PARATHYROID US SOFT TISSUE HEAD & NECK REAL TIME IMGE Modesto Arnold MD [address] [facility] [address] [place] [address] [place] [address] Referral ID Status Reason Start Date Expiration Date V isits Requested Visits Authorized [id number] Closed Auto-Generate d Referral 07/30/2024 08/29/2025 1 1 [facility] Diagnostic Procedure Only (Routine) - Closed Specialty Diagnoses / Procedures Referred By Contac t Referred To Contact [facility] Diagnoses Cyst of left breast Procedures US BREAST LTD LEFT US BREAST UNI REAL TIME WITH IMAGE LIMITED Carol Damico MD [address] [facility] [place] [place] [address] Phone: tel: fax: [facility] [address] [place] [address] Referral ID Status Reason Start Date Expiration Date V isits Requested Visits Authorized [id number] Closed Auto-Generate d Referral 11/15/2024 12/15/2025 1 1 [facility] Summary Purpose Family History No Family History Records FoundNo Family History Records FoundNo Family History Records FoundNo Family History Records Found No data available for this section No Family History Records FoundNo Family History Records FoundNo Family History Records FoundNo Family History Records Found Advance Directives No Advanced Directives Records FoundLatest Code Status on File Code Status Date Activated Date Inactivated Comments Full Code 08/22/2022 7:52 PM Full Code Order Discussed With: Patient Latest Code Status on File Code Status Date Activated Date Inactivated Comments Full Code 08/22/2022 7:52 PM 08/24/2022 8:49 PM Latest Code Status on File Code Status Date Activated Date Inactivated Comments Full Code 08/22/2022 7:52 PM 08/24/2022 8:49 PM Latest Code Status on File Code Status Date Activated Date Inactivated Comments Full Code 08/22/2022 7:52 PM 08/24/2022 8:49 PM Question Answer Comments Full Code Order Discussed With: Patient Latest Code Status on File Code Status Date Activated Date Inactivated Comments Full Code 08/22/2022 7:52 PM 08/24/2022 8:49 PM Question Answer Comments Full Code Order Discussed With: Patient Latest Code Status on File Code Status Date Activated Date Inactivated Comments Full Code 08/22/2022 7:52 PM 08/24/2022 8:49 PM Question Answer Comments Full Code Order Discussed With: Patient Latest Code Status on File Code Status Date Activated Date Inactivated Comments Full Code 08/22/2022 7:52 PM 08/24/2022 8:49 PM Question Answer Comments Full Code Order Discussed With: Patient Date Activated Date Inactivated Comments 08/22/2022 7:52 PM 08/24/2022 8:49 PM Question Answer Comments Full Code Order Discussed With: Patient Date Activated Date Inactivated Comments 08/22/2022 7:52 PM 08/24/2022 8:49 PM Question Answer Comments Full Code Order Discussed With: Patient Reason for Referral Specialty Diagnoses / Procedures Referred By Contac t Referred To Contact CT IMAGING Diagnoses Lung nodule Encounter for screening for lung cancer Current tobacco use Procedures CT LUNG SCREEN WO IVCON COMPUTED TOMOGRAPHY THORAX LW DOSE LNG CA SCR CSara Levi, CARPET RENOVATOR.COMMUNICATIONS PROGRAM MANAGER [id number] [facility]95 Referral ID Status Reason Start Date Expiration Date Visits Requested Visits Authorized [id number] New Request Auto-Generat ed Referral 11/08/2024 12/08/2025 1 1 Specialty Diagnoses / Procedures Referred By Contac t Referred To Contact CT IMAGING Diagnoses Lung nodules Procedures CT LUNG FOLLOWUP WO IVCON DIAGNOSTIC COMPUTED TOMOGRAPHY THORAX W/O CNTRST Sara Rodríguez, CARPET RENOVATOR.COMMUNICATIONS PROGRAM MANAGER [address] [place] [address] Ct Imaging [facility]95 Referral ID Status Reason Start Date Expiration Date Visits Requested Visits Authorized [id number] Pending Review Auto-Generat ed Referral 04/26/2025 11/25/2025 1 1 Specialty Diagnoses / Procedures Referred By Contac t Referred To Contact CT IMAGING Diagnoses Gross hematuria Procedures CT UROGRAM WO/W IVCON CT ABD & PELVIS W/WO CONTRST 1+ BODY Ever Austin CARPET RENOVATOR.COMMUNICATIONS PROGRAM MANAGER [address] [place] [address] [place] [address] Referral ID Status Reason Start Date Expiration Date Visits Requested Visits Authorized [id number] Additional Clinical Info Needed Auto-Generat ed Referral 03/15/2024 04/14/2025 1 1 Specialty Diagnoses / Procedures Referred By Contac t Referred To Contact Urology Diagnoses Overactive bladder Procedures CONSULT TO UROLOGY OFFICE/OUTPATIENT NEW HIGH MDM 60-74 MINUTES Brittany Willoughby MD [address] [place] [address] Referral ID Status Reason Start Date Expiration Date Visits Requested Visits Authorized [id number] Authorized PCP Requested Referral 07/19/2023 07/18/2024 1 1 Specialty Diagnoses / Procedures Referred By Contac t Referred To Contact CT IMAGING Diagnoses Other specified disorders of kidney and ureter Procedures CT ABDOMEN WO IVCON CT ABDOMEN W/O CONTRAST Brittany Willoughby MD [address] [place] [id number] Imaging Referral ID Status Reason Start Date Expiration Date Visits Requested Visits Authorized [id number] Pending Review Auto-Generat ed Referral 04/21/2023 05/20/2024 1 1 Specialty Diagnoses / Procedures Referred By Contac t Referred To Contact CT IMAGING Diagnoses Tobacco use disorder Lung nodule Procedures CT LUNG SCREEN WO IVCON COMPUTED TOMOGRAPHY THORAX LW DOSE LNG CA SCR C- Jennifer Yanez, CARPET RENOVATOR.COMMUNICATIONS PROGRAM MANAGER [address] [place] [address] Ct Imaging Referral ID Status Reason Start Date Expiration Date Visits Requested Visits Authorized [id number] Authorized Auto-Generat ed Referral 3 11/27/2023 1 1 Specialty Diagnoses / Procedures Referred By Contac t Referred To Contact [facility] Diagnoses Shortness of breath Procedures LUNG DIFFUSION CAPACITY (DLCO) DIFFUSING CAPACITY Jennifer Yanez APRN.COMMUNICATIONS PROGRAM MANAGER [address] [place] [address] [facility] [address] [place] [address] Referral ID Status Reason Start Date Expiration Date Visits Requested Visits Authorized [id number] Authorized Auto-Generat ed Referral 2 11/27/2023 1 1 Specialty Diagnoses / Procedures Referred By Contac t Referred To Contact [facility] Diagnoses Shortness of breath Procedures SPIROMETRY WITH DILATOR IF OBSTRUCTED BRNCDILAT RSPSE SPMTRY PRE&POST-BRNCDILAT ADMN Jennifer Yanez APRN.COMMUNICATIONS PROGRAM MANAGER [address] [place] [address] [facility] [address] [place] [address] Referral ID Status Reason Start Date Expiration Date Visits Requested Visits Authorized [id number] Authorized Auto-Generat ed Referral 2 11/27/2023 1 1 Specialty Diagnoses / Procedures Referred By Contac t Referred To Contact Pulmonary and Critical Care Medicine Diagnoses Tobacco use disorder Shortness of breath Procedures CONSULT TO PULM/CRITICAL CARE OFFICE/OUTPATIENT [facility] 60-74 MINUTES Jennifer Yanez APRN.COMMUNICATIONS PROGRAM MANAGER [address] [place] [address] Referral ID Status Reason Start Date Expiration Date Visits Requested Visits Authorized [id number] Authorized PCP Requested Referral 2 10/28/2023 1 1 Specialty Diagnoses / Procedures Referred By Contac t Referred To Contact Endocrinology Diagnoses Thyroid nodule Procedures CONSULT TO ENDOCRINOLOGY OFFICE/OUTPATIENT [facility] 60-74 MINUTES Moi Cartwright Referral ID Status Reason Start Date Expiration Date Visits Requested Visits Authorized [id number] Authorized PCP Requested Referral 07/01/2022 07/01/2023 1 1 Health Concerns Infection Onset Date Last Indicated Resolved Time COVID-19 Rule-Out 08/22/2022 08/22/2022 08/22/2022 6:14 PM EDT Additional Source Comments INFORMATION SOURCE (unrecogn ized section and content) DATE CREATED AUTHOR 05/02/2018 [facility] DATE CREATED AUTHOR AUTHOR'S ORGANIZ ATION 04/23/2022 [facility] Christina Phan DATE CREATED AUTHOR AUTHOR'S ORGANIZ ATION 08/07/2022 [facility] DATE CREATED AUTHOR AUTHOR'S ORGANIZ ATION 11/10/2023 [facility] DATE CREATED AUTHOR AUTHOR'S ORGANIZ ATION 06/05/2024 [facility] DATE CREATED AUTHOR AUTHOR'S ORGANIZ ATION 08/01/2024 [facility] DATE CREATED AUTHOR AUTHOR'S ORGANIZ ATION 12/21/2024 [facility] DATE CREATED AUTHOR AUTHOR'S ORGANIZ ATION 02/26/2025 [facility] nter Source Comments (unrecognize d section and content) In the event this informatio n is protected by the Federal Confidentiality of Alcohol and Drug Abuse Patient Records regulations: The Federal rules restrict any use of the information to criminally investigate or prosecute any alcohol or drug abuse patient.[facility]In the event this information is protected by the Federal Confidentiality of Alcohol and Drug Abuse Patient Records regulations: The Federal rules restrict any use of the information to criminally investigate or prosecute any alcohol or drug abuse patient.[facility]In the event this information is protected by the Federal Confidentiality of Alcohol and Drug Abuse Patient Records regulations: The Federal rules restrict any use of the information to criminally investigate or prosecute any alcohol or drug abuse patient.[facility]In the event this information is protected by the Federal Confidentiality of Alcohol and Drug Abuse Patient Records regulations: The Federal rules restrict any use of the information to criminally investigate or prosecute any alcohol or drug abuse patient.[facility] ColumbusIn the event this information is protected by the Federal Confidentiality of Alcohol and Drug Abuse Patient Records regulations: The Federal rules restrict any use of the information to criminally investigate or prosecute any alcohol or drug abuse patient.[facility] ColumbusIn the event this information is protected by the Federal Confidentiality of Alcohol and Drug Abuse Patient Records regulations: The Federal rules restrict any use of the information to criminally investigate or prosecute any alcohol or drug abuse patient.[facility] ColumbusIn the event this information is protected by the Federal Confidentiality of Alcohol and Drug Abuse Patient Records regulations: The Federal rules restrict any use of the information to criminally investigate or prosecute any alcohol or drug abuse patient.[facility] ColumbusIn the event this information is protected by the Federal Confidentiality of Alcohol and Drug Abuse Patient Records regulations: The Federal rules restrict any use of the information to criminally investigate or prosecute any alcohol or drug abuse patient.[facility] ColumbusIn the event this information is protected by the Federal Confidentiality of Alcohol and Drug Abuse Patient Records regulations: The Federal rules restrict any use of the information to criminally investigate or prosecute any alcohol or drug abuse patient.[facility] ColumbusIn the event this information is protected by the Federal Confidentiality of Alcohol and Drug Abuse Patient Records regulations: The Federal rules restrict any use of the information to criminally investigate or prosecute any alcohol or drug abuse patient.[facility] ColumbusIn the event this information is protected by the Federal Confidentiality of Alcohol and Drug Abuse Patient Records regulations: The Federal rules restrict any use of the information to criminally investigate or prosecute any alcohol or drug abuse patient.[facility]In the event this information is protected by the Federal Confidentiality of Alcohol and Drug Abuse Patient Records regulations: The Federal rules restrict any use of the information to criminally investigate or prosecute any alcohol or drug abuse patient.[facility] ColumbusIn the event this information is protected by the Federal Confidentiality of Alcohol and Drug Abuse Patient Records regulations: The Federal rules restrict any use of the information to criminally investigate or prosecute any alcohol or drug abuse patient.[facility] ColumbusIn the event this information is protected by the Federal Confidentiality of Alcohol and Drug Abuse Patient Records regulations: The Federal rules restrict any use of the information to criminally investigate or prosecute any alcohol or drug abuse patient.[facility] ColumbusIn the event this information is protected by the Federal Confidentiality of Alcohol and Drug Abuse Patient Records regulations: The Federal rules restrict any use of the information to criminally investigate or prosecute any alcohol or drug abuse patient.[facility] ColumbusIn the event this information is protected by the Federal Confidentiality of Alcohol and Drug Abuse Patient Records regulations: The Federal rules restrict any use of the information to criminally investigate or prosecute any alcohol or drug abuse patient.[facility] ColumbusIn the event this information is protected by the Federal Confidentiality of Alcohol and Drug Abuse Patient Records regulations: The Federal rules restrict any use of the information to criminally investigate or prosecute any alcohol or drug abuse patient.[facility] ColumbusIn the event this information is protected by the Federal Confidentiality of Alcohol and Drug Abuse Patient Records regulations: The Federal rules restrict any use of the information to criminally investigate or prosecute any alcohol or drug abuse patient.[facility] ColumbusIn the event this information is protected by the Federal Confidentiality of Alcohol and Drug Abuse Patient Records regulations: The Federal rules restrict any use of the information to criminally investigate or prosecute any alcohol or drug abuse patient.[facility] ColumbusIn the event this information is protected by the Federal Confidentiality of Alcohol and Drug Abuse Patient Records regulations: The Federal rules restrict any use of the information to criminally investigate or prosecute any alcohol or drug abuse patient.[facility] ColumbusIn the event this information is protected by the Federal Confidentiality of Alcohol and Drug Abuse Patient Records regulations: The Federal rules restrict any use of the information to criminally investigate or prosecute any alcohol or drug abuse patient.[facility] ColumbusIn the event this information is protected by the Federal Confidentiality of Alcohol and Drug Abuse Patient Records regulations: The Federal rules restrict any use of the information to criminally investigate or prosecute any alcohol or drug abuse patient.[facility] ColumbusIn the event this information is protected by the Federal Confidentiality of Alcohol and Drug Abuse Patient Records regulations: The Federal rules restrict any use of the information to criminally investigate or prosecute any alcohol or drug abuse patient.[facility] ColumbusIn the event this information is protected by the Federal Confidentiality of Alcohol and Drug Abuse Patient Records regulations: The Federal rules restrict any use of the information to criminally investigate or prosecute any alcohol or drug abuse patient.[facility] ColumbusIn the event this information is protected by the Federal Confidentiality of Alcohol and Drug Abuse Patient Records regulations: The Federal rules restrict any use of the information to criminally investigate or prosecute any alcohol or drug abuse patient.[facility] ColumbusIn the event this information is protected by the Federal Confidentiality of Alcohol and Drug Abuse Patient Records regulations: The Federal rules restrict any use of the information to criminally investigate or prosecute any alcohol or drug abuse patient.[facility] ColumbusIn the event this information is protected by the Federal Confidentiality of Alcohol and Drug Abuse Patient Records regulations: The Federal rules restrict any use of the information to criminally investigate or prosecute any alcohol or drug abuse patient.[facility] ColumbusIn the event this information is protected by the Federal Confidentiality of Alcohol and Drug Abuse Patient Records regulations: The Federal rules restrict any use of the information to criminally investigate or prosecute any alcohol or drug abuse patient.[facility] ColumbusIn the event this information is protected by the Federal Confidentiality of Alcohol and Drug Abuse Patient Records regulations: The Federal rules restrict any use of the information to criminally investigate or prosecute any alcohol or drug abuse patient.[facility] ColumbusIn the event this information is protected by the Federal Confidentiality of Alcohol and Drug Abuse Patient Records regulations: The Federal rules restrict any use of the information to criminally investigate or prosecute any alcohol or drug abuse patient.[facility] ColumbusIn the event this information is protected by the Federal Confidentiality of Alcohol and Drug Abuse Patient Records regulations: The Federal rules restrict any use of the information to criminally investigate or prosecute any alcohol or drug abuse patient.[facility] ColumbusIn the event this information is protected by the Federal Confidentiality of Alcohol and Drug Abuse Patient Records regulations: The Federal rules restrict any use of the information to criminally investigate or prosecute any alcohol or drug abuse patient.[facility] ColumbusIn the event this information is protected by the Federal Confidentiality of Alcohol and Drug Abuse Patient Records regulations: The Federal rules restrict any use of the information to criminally investigate or prosecute any alcohol or drug abuse patient.[facility] ColumbusIn the event this information is protected by the Federal Confidentiality of Alcohol and Drug Abuse Patient Records regulations: The Federal rules restrict any use of the information to criminally investigate or prosecute any alcohol or drug abuse patient.[facility] ColumbusIn the event this information is protected by the Federal Confidentiality of Alcohol and Drug Abuse Patient Records regulations: The Federal rules restrict any use of the information to criminally investigate or prosecute any alcohol or drug abuse patient.[facility] ColumbusIn the event this information is protected by the Federal Confidentiality of Alcohol and Drug Abuse Patient Records regulations: The Federal rules restrict any use of the information to criminally investigate or prosecute any alcohol or drug abuse patient.[facility] ColumbusIn the event this information is protected by the Federal Confidentiality of Alcohol and Drug Abuse Patient Records regulations: The Federal rules restrict any use of the information to criminally investigate or prosecute any alcohol or drug abuse patient.[facility] ColumbusIn the event this information is protected by the Federal Confidentiality of Alcohol and Drug Abuse Patient Records regulations: The Federal rules restrict any use of the information to criminally investigate or prosecute any alcohol or drug abuse patient.[facility] ColumbusIn the event this information is protected by the Federal Confidentiality of Alcohol and Drug Abuse Patient Records regulations: The Federal rules restrict any use of the information to criminally investigate or prosecute any alcohol or drug abuse patient.[facility] ColumbusIn the event this information is protected by the Federal Confidentiality of Alcohol and Drug Abuse Patient Records regulations: The Federal rules restrict any use of the information to criminally investigate or prosecute any alcohol or drug abuse patient.[facility] ColumbusIn the event this information is protected by the Federal Confidentiality of Alcohol and Drug Abuse Patient Records regulations: The Federal rules restrict any use of the information to criminally investigate or prosecute any alcohol or drug abuse patient.[facility] ColumbusIn the event this information is protected by the Federal Confidentiality of Alcohol and Drug Abuse Patient Records regulations: The Federal rules restrict any use of the information to criminally investigate or prosecute any alcohol or drug abuse patient.[facility] ColumbusIn the event this information is protected by the Federal Confidentiality of Alcohol and Drug Abuse Patient Records regulations: The Federal rules restrict any use of the information to criminally investigate or prosecute any alcohol or drug abuse patient.[facility] ColumbusIn the event this information is protected by the Federal Confidentiality of Alcohol and Drug Abuse Patient Records regulations: The Federal rules restrict any use of the information to criminally investigate or prosecute any alcohol or drug abuse patient.[facility] ColumbusIn the event this information is protected by the Federal Confidentiality of Alcohol and Drug Abuse Patient Records regulations: The Federal rules restrict any use of the information to criminally investigate or prosecute any alcohol or drug abuse patient.[facility] ColumbusIn the event this information is protected by the Federal Confidentiality of Alcohol and Drug Abuse Patient Records regulations: The Federal rules restrict any use of the information to criminally investigate or prosecute any alcohol or drug abuse patient.[facility] ColumbusIn the event this information is protected by the Federal Confidentiality of Alcohol and Drug Abuse Patient Records regulations: The Federal rules restrict any use of the information to criminally investigate or prosecute any alcohol or drug abuse patient.[facility] ColumbusIn the event this information is protected by the Federal Confidentiality of Alcohol and Drug Abuse Patient Records regulations: The Federal rules restrict any use of the information to criminally investigate or prosecute any alcohol or drug abuse patient.[facility] ColumbusIn the event this information is protected by the Federal Confidentiality of Alcohol and Drug Abuse Patient Records regulations: The Federal rules restrict any use of the information to criminally investigate or prosecute any alcohol or drug abuse patient.[facility] ColumbusIn the event this information is protected by the Federal Confidentiality of Alcohol and Drug Abuse Patient Records regulations: The Federal rules restrict any use of the information to criminally investigate or prosecute any alcohol or drug abuse patient.[facility] ColumbusIn the event this information is protected by the Federal Confidentiality of Alcohol and Drug Abuse Patient Records regulations: The Federal rules restrict any use of the information to criminally investigate or prosecute any alcohol or drug abuse patient.[facility] ColumbusIn the event this information is protected by the Federal Confidentiality of Alcohol and Drug Abuse Patient Records regulations: The Federal rules restrict any use of the information to criminally investigate or prosecute any alcohol or drug abuse patient.[facility] ColumbusIn the event this information is protected by the Federal Confidentiality of Alcohol and Drug Abuse Patient Records regulations: The Federal rules restrict any use of the information to criminally investigate or prosecute any alcohol or drug abuse patient.[facility] ColumbusIn the event this information is protected by the Federal Confidentiality of Alcohol and Drug Abuse Patient Records regulations: The Federal rules restrict any use of the information to criminally investigate or prosecute any alcohol or drug abuse patient.[facility] ColumbusIn the event this information is protected by the Federal Confidentiality of Alcohol and Drug Abuse Patient Records regulations: The Federal rules restrict any use of the information to criminally investigate or prosecute any alcohol or drug abuse patient.[facility] ColumbusIn the event this information is protected by the Federal Confidentiality of Alcohol and Drug Abuse Patient Records regulations: The Federal rules restrict any use of the information to criminally investigate or prosecute any alcohol or drug abuse patient.[facility] ColumbusIn the event this information is protected by the Federal Confidentiality of Alcohol and Drug Abuse Patient Records regulations: The Federal rules restrict any use of the information to criminally investigate or prosecute any alcohol or drug abuse patient.[facility] ColumbusIn the event this information is protected by the Federal Confidentiality of Alcohol and Drug Abuse Patient Records regulations: The Federal rules restrict any use of the information to criminally investigate or prosecute any alcohol or drug abuse patient.[facility] ColumbusIn the event this information is protected by the Federal Confidentiality of Alcohol and Drug Abuse Patient Records regulations: The Federal rules restrict any use of the information to criminally investigate or prosecute any alcohol or drug abuse patient.[facility] ColumbusIn the event this information is protected by the Federal Confidentiality of Alcohol and Drug Abuse Patient Records regulations: The Federal rules restrict any use of the information to criminally investigate or prosecute any alcohol or drug abuse patient.[facility] ColumbusIn the event this information is protected by the Federal Confidentiality of Alcohol and Drug Abuse Patient Records regulations: The Federal rules restrict any use of the information to criminally investigate or prosecute any alcohol or drug abuse patient.[facility] ClinicIn the event this information is protected by the Federal Confidentiality of Alcohol and Drug Abuse Patient Records regulations: The Federal rules restrict any use of the information to criminally investigate or prosecute any alcohol or drug abuse patient.[facility] ColumbusIn the event this information is protected by the Federal Confidentiality of Alcohol and Drug Abuse Patient Records regulations: The Federal rules restrict any use of the information to criminally investigate or prosecute any alcohol or drug abuse patient.[facility] ColumbusIn the event this information is protected by the Federal Confidentiality of Alcohol and Drug Abuse Patient Records regulations: The Federal rules restrict any use of the information to criminally investigate or prosecute any alcohol or drug abuse patient.[facility] ColumbusIn the event this information is protected by the Federal Confidentiality of Alcohol and Drug Abuse Patient Records regulations: The Federal rules restrict any use of the information to criminally investigate or prosecute any alcohol or drug abuse patient.[facility] ColumbusIn the event this information is protected by the Federal Confidentiality of Alcohol and Drug Abuse Patient Records regulations: The Federal rules restrict any use of the information to criminally investigate or prosecute any alcohol or drug abuse patient.[facility] ColumbusIn the event this information is protected by the Federal Confidentiality of Alcohol and Drug Abuse Patient Records regulations: The Federal rules restrict any use of the information to criminally investigate or prosecute any alcohol or drug abuse patient.[facility] ColumbusIn the event this information is protected by the Federal Confidentiality of Alcohol and Drug Abuse Patient Records regulations: The Federal rules restrict any use of the information to criminally investigate or prosecute any alcohol or drug abuse patient.[facility] ColumbusIn the event this information is protected by the Federal Confidentiality of Alcohol and Drug Abuse Patient Records regulations: The Federal rules restrict any use of the information to criminally investigate or prosecute any alcohol or drug abuse patient.[facility] ColumbusIn the event this information is protected by the Federal Confidentiality of Alcohol and Drug Abuse Patient Records regulations: The Federal rules restrict any use of the information to criminally investigate or prosecute any alcohol or drug abuse patient.[facility] ColumbusIn the event this information is protected by the Federal Confidentiality of Alcohol and Drug Abuse Patient Records regulations: The Federal rules restrict any use of the information to criminally investigate or prosecute any alcohol or drug abuse patient.[facility] ColumbusIn the event this information is protected by the Federal Confidentiality of Alcohol and Drug Abuse Patient Records regulations: The Federal rules restrict any use of the information to criminally investigate or prosecute any alcohol or drug abuse patient.[facility] ColumbusIn the event this information is protected by the Federal Confidentiality of Alcohol and Drug Abuse Patient Records regulations: The Federal rules restrict any use of the information to criminally investigate or prosecute any alcohol or drug abuse patient.[facility] ColumbusIn the event this information is protected by the Federal Confidentiality of Alcohol and Drug Abuse Patient Records regulations: The Federal rules restrict any use of the information to criminally investigate or prosecute any alcohol or drug abuse patient.[facility] ColumbusIn the event this information is protected by the Federal Confidentiality of Alcohol and Drug Abuse Patient Records regulations: The Federal rules restrict any use of the information to criminally investigate or prosecute any alcohol or drug abuse patient.[facility] ColumbusIn the event this information is protected by the Federal Confidentiality of Alcohol and Drug Abuse Patient Records regulations: The Federal rules restrict any use of the information to criminally investigate or prosecute any alcohol or drug abuse patient.[facility] ColumbusIn the event this information is protected by the Federal Confidentiality of Alcohol and Drug Abuse Patient Records regulations: The Federal rules restrict any use of the information to criminally investigate or prosecute any alcohol or drug abuse patient.[facility] ColumbusIn the event this information is protected by the Federal Confidentiality of Alcohol and Drug Abuse Patient Records regulations: The Federal rules restrict any use of the information to criminally investigate or prosecute any alcohol or drug abuse patient.[facility] ColumbusIn the event this information is protected by the Federal Confidentiality of Alcohol and Drug Abuse Patient Records regulations: The Federal rules restrict any use of the information to criminally investigate or prosecute any alcohol or drug abuse patient.[facility] ColumbusIn the event this information is protected by the Federal Confidentiality of Alcohol and Drug Abuse Patient Records regulations: The Federal rules restrict any use of the information to criminally investigate or prosecute any alcohol or drug abuse patient.[facility] ColumbusIn the event this information is protected by the Federal Confidentiality of Alcohol and Drug Abuse Patient Records regulations: The Federal rules restrict any use of the information to criminally investigate or prosecute any alcohol or drug abuse patient.[facility] ColumbusIn the event this information is protected by the Federal Confidentiality of Alcohol and Drug Abuse Patient Records regulations: The Federal rules restrict any use of the information to criminally investigate or prosecute any alcohol or drug abuse patient.[facility] ColumbusIn the event this information is protected by the Federal Confidentiality of Alcohol and Drug Abuse Patient Records regulations: The Federal rules restrict any use of the information to criminally investigate or prosecute any alcohol or drug abuse patient.[facility] ColumbusIn the event this information is protected by the Federal Confidentiality of Alcohol and Drug Abuse Patient Records regulations: The Federal rules restrict any use of the information to criminally investigate or prosecute any alcohol or drug abuse patient.[facility] ColumbusIn the event this information is protected by the Federal Confidentiality of Alcohol and Drug Abuse Patient Records regulations: The Federal rules restrict any use of the information to criminally investigate or prosecute any alcohol or drug abuse patient.[facility] ColumbusIn the event this information is protected by the Federal Confidentiality of Alcohol and Drug Abuse Patient Records regulations: The Federal rules restrict any use of the information to criminally investigate or prosecute any alcohol or drug abuse patient.[facility] ColumbusIn the event this information is protected by the Federal Confidentiality of Alcohol and Drug Abuse Patient Records regulations: The Federal rules restrict any use of the information to criminally investigate or prosecute any alcohol or drug abuse patient.[facility] ColumbusIn the event this information is protected by the Federal Confidentiality of Alcohol and Drug Abuse Patient Records regulations: The Federal rules restrict any use of the information to criminally investigate or prosecute any alcohol or drug abuse patient.[facility] ColumbusIn the event this information is protected by the Federal Confidentiality of Alcohol and Drug Abuse Patient Records regulations: The Federal rules restrict any use of the information to criminally investigate or prosecute any alcohol or drug abuse patient.[facility] ColumbusIn the event this information is protected by the Federal Confidentiality of Alcohol and Drug Abuse Patient Records regulations: The Federal rules restrict any use of the information to criminally investigate or prosecute any alcohol or drug abuse patient.[facility] ColumbusIn the event this information is protected by the Federal Confidentiality of Alcohol and Drug Abuse Patient Records regulations: The Federal rules restrict any use of the information to criminally investigate or prosecute any alcohol or drug abuse patient.[facility] ColumbusIn the event this information is protected by the Federal Confidentiality of Alcohol and Drug Abuse Patient Records regulations: The Federal rules restrict any use of the information to criminally investigate or prosecute any alcohol or drug abuse patient.[facility] ColumbusIn the event this information is protected by the Federal Confidentiality of Alcohol and Drug Abuse Patient Records regulations: The Federal rules restrict any use of the information to criminally investigate or prosecute any alcohol or drug abuse patient.[facility] ColumbusIn the event this information is protected by the Federal Confidentiality of Alcohol and Drug Abuse Patient Records regulations: The Federal rules restrict any use of the information to criminally investigate or prosecute any alcohol or drug abuse patient.[facility] ColumbusIn the event this information is protected by the Federal Confidentiality of Alcohol and Drug Abuse Patient Records regulations: The Federal rules restrict any use of the information to criminally investigate or prosecute any alcohol or drug abuse patient.[facility] ColumbusIn the event this information is protected by the Federal Confidentiality of Alcohol and Drug Abuse Patient Records regulations: The Federal rules restrict any use of the information to criminally investigate or prosecute any alcohol or drug abuse patient.[facility] ColumbusIn the event this information is protected by the Federal Confidentiality of Alcohol and Drug Abuse Patient Records regulations: The Federal rules restrict any use of the information to criminally investigate or prosecute any alcohol or drug abuse patient.[facility] ColumbusIn the event this information is protected by the Federal Confidentiality of Alcohol and Drug Abuse Patient Records regulations: The Federal rules restrict any use of the information to criminally investigate or prosecute any alcohol or drug abuse patient.[facility] ColumbusIn the event this information is protected by the Federal Confidentiality of Alcohol and Drug Abuse Patient Records regulations: The Federal rules restrict any use of the information to criminally investigate or prosecute any alcohol or drug abuse patient.[facility] ColumbusIn the event this information is protected by the Federal Confidentiality of Alcohol and Drug Abuse Patient Records regulations: The Federal rules restrict any use of the information to criminally investigate or prosecute any alcohol or drug abuse patient.[facility] ColumbusIn the event this information is protected by the Federal Confidentiality of Alcohol and Drug Abuse Patient Records regulations: The Federal rules restrict any use of the information to criminally investigate or prosecute any alcohol or drug abuse patient.[facility] Care Team (unrecognized sect ion and content) Personnel Name: MOI CARTWRIGHT MD Address: Address: [address] [place] [address] [place] [address]- [place] Reason for Visit (unrecogniz ed section and content) Reason Comments PT Discharge Specialty Diagnoses / Procedures Referred By Contac t Referred To Contact PHYSICAL THERAPY Diagnoses Generalized weakness Procedures CONSULT TO PHYSICAL THERAPY PHYSICAL THERAPY EVALUATION HIGH COMPLEX 45 MINS Brittany Willoughby MD [address] [place] [address] Hemanth Mendieta, PT [address] [place] [address] Referral ID Status Reason Start Date Expiration Date Visits Requested Visits Authorized [id number] Pending Review Auto-Generat ed Referral 11/15/2023 11/14/2024 1 1 Reason Comments Problem with order Mammogram order need s corrected. Reason Comments Results Already spoke to fareed brooks about thyroid US Reason Comments Results Orders Reason Onset Date Comments Refill Request 07/19/2022 Reason Onset Date Comments Refill Request 08/20/2022 Reason Comments Appointment Reason Onset Date Comments Refill Request 10/27/2022 Reason Comments Counseling Reason Comments Patient hasn't returned call from Appsee cialist Reason Comments Acute Visit Reason Comments Patient Question Reason Comments Spirometry Specialty Diagnoses / Procedures Referred By Contac t Referred To Contact [facility] Diagnoses Shortness of breath Procedures SPIROMETRY WITH DILATOR IF OBSTRUCTED BRNCDILAT RSPSE SPMTRY PRE&POST-BRNCDILAT ADMN Jennifer Yanez, CARPET RENOVATOR.COMMUNICATIONS PROGRAM MANAGER [address] [place] [address] [facility] [place] [address] [place] [address] Referral ID Status Reason Start Date Expiration Date V isits Requested Visits Authorized [id number] Closed Auto-Generate d Referral 10/28/2022 11/27/2023 1 1 Reason Comments Nodule Sleep Apnea Shortness of Breath Specialty Diagnoses / Procedures Referred By Contac t Referred To Contact Pulmonary and Critical Care Medicine Diagnoses Tobacco use disorder Shortness of breath Procedures CONSULT TO PULM/CRITICAL CARE OFFICE/OUTPATIENT [facility] 60-74 MINUTES Jennifer Yanez, CARPET RENOVATOR.COMMUNICATIONS PROGRAM MANAGER [address] [place] [address] Referral ID Status Reason Start Date Expiration Date V isits Requested Visits Authorized [id number] Closed PCP Requested Referral 10/28/2022 10/28/2023 1 1 Reason Onset Date Comments Refill Request 12/28/2022 Reason Comments Recheck Reason Comments referrals for Endo and GI don't take her insurance Reason Comments Acute Visit Reason Onset Date Comments Refill Request 01/27/2023 Reason Comments Orders Reason Comments Results Patient Question Orders Reason Comments Results Reason Comments Medication Problem Reason Onset Date Comments Refill Request 04/05/2023 Reason Comments Nodule Sleep Apnea Reason Comments Recheck Reason Comments Follow Up Reason Comments Urinary Frequency New pt here for freq uency, PVR 19ml. Specialty Diagnoses / Procedures Referred By Contac t Referred To Contact Urology Diagnoses Overactive bladder Procedures CONSULT TO UROLOGY OFFICE/OUTPATIENT [facility] 60-74 MINUTES Brittany Willoughby MD [address] [facility] [address] [place] [address] Referral ID Status Reason Start Date Expiration Date V isits Requested Visits Authorized [id number] Closed PCP Requested Referral 07/19/2023 07/18/2024 1 1 Reason Comments Urinary Frequency Pt did not bring swati dder diary. Reason Comments Thyroid Problem Reason Comments Procedure Thyroid US Reason Onset Date Comments Results 09/11/2023 Reason Comments Urinary Frequency Pt here for 4-6 week follow up. PVR 32ml Reason Onset Date Comments Refill Request 09/22/2023 Reason Comments Patient Update Orders Reason Comments Checking status of Dx mammogram & US Reason Comments Urinary Frequency Reason Comments PT Eval PT Discharge Reason Comments Sleep Apnea Reason Comments Checking status of F/U mammo & US Reason Onset Date Comments Refill Request 05/01/2024 Reason Comments New Patient Colonoscopy/ neg fam elsy hx Specialty Diagnoses / Procedures Referred By Contmanjit t Referred To Contact Gastroenterology Diagnoses Screen for colon cancer Procedures CONSULT TO GASTROENTEROLOGY OFFICE/OUTPATIENT NEW HIGH MDM 60 MINUTES Brittany Willoughby MD [address] [place] [address] Referral ID Status Reason Start Date Expiration Date V isits Requested Visits Authorized [id number] Closed PCP Requested Referral 11/10/2023 11/09/2024 1 1 Reason Comments Orders Reason Comments FYI-No Action Needed Medical Clearance C olonoscopy Reason Comments Sleep Apnea Nodule Reason Comments Establish Care Reason Onset Date Comments Refill Request 07/30/2024 Reason Comments Follow Up Tests Results Specialty Diagnoses / Procedures Referred By Drake t Referred To Contact CT IMAGING Diagnoses Tobacco use disorder Procedures CT LUNG SCREEN WO IVCON COMPUTED TOMOGRAPHY THORAX LW DOSE LNG CA SCR C- Jennifer Yanez, CARPET RENOVATOR.COMMUNICATIONS PROGRAM MANAGER [address] [place] [address] [facility] [place] [address] Referral ID Status Reason Start Date Expiration Date V isits Requested Visits Authorized [id number] Closed Auto-Generate d Referral 10/24/2023 11/22/2024 1 1 Reason Comments Results Reason Onset Date Comments Refill Request 11/28/2024 Reason Onset Date Comments Refill Request 02/22/2025 Care Teams (unrecognized sec tion and content) Lab Rep Relationship Specialty Start Date End Date Brittany Willoughby MD [address] [place] [address] PCP - General Internal Medicine 05/04/22 Tho Harper MD [address] [place] [address] PCP Resident Internal Medicine 05/04/22 Moi Cartwright I, MD [address] [place] [address] PCP Resident Internal Medicine 05/27/22 Lab Rep Relationship Specialty Start Date End Date Brittany Willoughby MD [address] [place] [address] PCP - General Internal Medicine 05/04/22 Tho Harper MD [address] [place] [address] PCP Resident Internal Medicine 05/04/22 Moi Cartwright I, MD [address] [facility] [place] [address] PCP Resident Internal Medicine 05/27/22 Lab Rep Relationship Specialty Start Date End Date Brittany Willoughby MD [address] [place] [address] PCP - General Internal Medicine 05/04/22 Tho Harper MD [address] [facility] [place] [address] PCP Resident Internal Medicine 05/04/22 Moi Cartwright I, MD [address] [facility] [place] [address] PCP Resident Internal Medicine 05/27/22 Lab Rep Relationship Specialty Start Date End Date Brittany Willoughby MD [address] [place] [address] PCP - General Internal Medicine 05/04/22 Tho Harper MD [address] [facility] [place] [address] PCP Resident Internal Medicine 05/04/22 Moi Cartwright I, MD [address] [facility] [place] [address] PCP Resident Internal Medicine 05/27/22 Lab Rep Relationship Specialty Start Date End Date Brittany Willoughby MD [address] [place] [address] PCP - General Internal Medicine 05/04/22 Tho Harper MD [address] [facility] [place] [address] PCP Resident Internal Medicine 05/04/22 Moi Cartwright I, MD [address] [place] [address] PCP Resident Internal Medicine 05/27/22 Lab Rep Relationship Specialty Start Date End Date Brittany Willoughby MD [address] [place] [address] PCP - General Internal Medicine 05/04/22 Tho Harper MD [address] [facility] [place] [address] PCP Resident Internal Medicine 05/04/22 Moi Cartwright I, MD [address] [facility] [place] [address] PCP Resident Internal Medicine 05/27/22 Lab Rep Relationship Specialty Start Date End Date Brittany Willoughby MD [address] [place] [address] PCP - General Internal Medicine 05/04/22 Tho Harper MD [address] [facility] [place] [address] PCP Resident Internal Medicine 05/04/22 Moi Cartwright I, MD [address] [facility] [place] [address] PCP Resident Internal Medicine 05/27/22 Lab Rep Relationship Specialty Start Date End Date Brittany Willoughby MD [address] [place] [address] PCP - General Internal Medicine 05/04/22 Tho Harper MD [address] [facility] [place] [address] PCP Resident Internal Medicine 05/04/22 Moi Cartwright I, MD [address] [facility] [place] [address] PCP Resident Internal Medicine 05/27/22 Lab Rep Relationship Specialty Start Date End Date Brittany Willoughby MD [address] [place] [address] PCP - General Internal Medicine 05/04/22 Tho Harper MD [address] [facility] [place] [address] PCP Resident Internal Medicine 05/04/22 Moi Cartwright I, MD [address] [facility] [place] [address] PCP Resident Internal Medicine 05/27/22 Lab Rep Relationship Specialty Start Date End Date Brittany Willoughby MD [address] [place] [address] PCP - General Internal Medicine 05/04/22 Tho Harper MD [address] [facility] [place] [address] PCP Resident Internal Medicine 05/04/22 Moi Cartwright I, MD [address] [facility] [place] [address] PCP Resident Internal Medicine 05/27/22 Lab Rep Relationship Specialty Start Date End Date Brittany Willoughby MD [address] [place] [address] PCP - General Internal Medicine 05/04/22 Tho Harper MD [address] [facility] [place] [address] PCP Resident Internal Medicine 05/04/22 Moi Cartwright I, MD [address] [facility] [place] [address] PCP Resident Internal Medicine 05/27/22 Lab Rep Relationship Specialty Start Date End Date Brittany Willoughby MD [address] [place] [address] PCP - General Internal Medicine 05/04/22 Tho Harper MD [address] [facility] [place] [address] PCP Resident Internal Medicine 05/04/22 Moi Cartwright I, MD [address] [facility] [place] [address] PCP Resident Internal Medicine 05/27/22 Lab Rep Relationship Specialty Start Date End Date Brittany Willoughby MD [address] [place] [address] PCP - General Internal Medicine 05/04/22 Tho Harper MD [address] [facility] [place] [address] PCP Resident Internal Medicine 05/04/22 Moi Cartwright I, MD [address] [facility] [place] [address] PCP Resident Internal Medicine 05/27/22 Lab Rep Relationship Specialty Start Date End Date Brittany Willoughby MD [address] [place] [address] PCP - General Internal Medicine 05/04/22 Toh Harper MD [address] [facility] [place] [address] PCP Resident Internal Medicine 05/04/22 Moi Cartwright I, MD [address] [facility] [place] [address] PCP Resident Internal Medicine 05/27/22 Lab Rep Relationship Specialty Start Date End Date Brittany Willoughby MD [address] [place] [address] PCP - General Internal Medicine 05/04/22 Tho Harper MD [address] [facility] [place] [address] PCP Resident Internal Medicine 05/04/22 Moi Cartwright I, MD [address] [facility] [place] [address] PCP Resident Internal Medicine 05/27/22 Lab Rep Relationship Specialty Start Date End Date Brittany Willoughby MD [address] [place] [address] PCP - General Internal Medicine 05/04/22 Tho Harper MD [address] [facility] [place] [address] PCP Resident Internal Medicine 05/04/22 Moi Cartwright I, MD [address] [facility] [place] [address] PCP Resident Internal Medicine 05/27/22 Lab Rep Relationship Specialty Start Date End Date Brittany Willoughby MD [address] [place] [address] PCP - General Internal Medicine 05/04/22 Tho Harper MD [address] [facility] [place] [address] PCP Resident Internal Medicine 05/04/22 Moi Cartwright I, MD [address] [facility] [place] [address] PCP Resident Internal Medicine 05/27/22 Lab Rep Relationship Specialty Start Date End Date Brittany Willoughby MD [address] [place] [address] PCP - General Internal Medicine 05/04/22 Tho Harper MD [address] [facility] [place] [address] PCP Resident Internal Medicine 05/04/22 Moi Cartwright I, MD [address] [facility] [place] [address] PCP Resident Internal Medicine 05/27/22 Lab Rep Relationship Specialty Start Date End Date Brittany Willoughby MD [address] [address] [place] [address] PCP - General Internal Medicine 05/04/22 Tho Harper MD [address] [facility] [place] [address] PCP Resident Internal Medicine 05/04/22 Moi Cartwright I, MD [address] [facility] [place] [address] PCP Resident Internal Medicine 05/27/22 Brittany Willoughby MD [address] [place] [address] Referring Internal Medicine 01/26/23 Lab Rep Relationship Specialty Start Date End Date Brittany Willoughby MD [address] [place] [address] PCP - General Internal Medicine 05/04/22 Tho Harper MD [address] [facility] [place] [address] PCP Resident Internal Medicine 05/04/22 Moi Cartwright I, MD [address] [facility] [place] [address] PCP Resident Internal Medicine 05/27/22 Lab Rep Relationship Specialty Start Date End Date Brittany Willoughby MD [address] [place] [address] PCP - General Internal Medicine 05/04/22 Tho Harper MD [address] [facility] [place] [address] PCP Resident Internal Medicine 05/04/22 Moi Cartwright I, MD [address] [facility] [place] [address] PCP Resident Internal Medicine 05/27/22 Brittany Willoughby MD [address] [place] [address] Referring Internal Medicine 01/26/23 Lab Rep Relationship Specialty Start Date End Date Brittany Willoughby MD [address] [place] [address] PCP - General Internal Medicine 05/04/22 Tho Harper MD [address] [facility] [place] [address] PCP Resident Internal Medicine 05/04/22 Moi Cartwright I, MD [address] [place] [address] PCP Resident Internal Medicine 05/27/22 Brittany Willoughby MD [address] [place] [address] Referring Internal Medicine 01/26/23 Lab Rep Relationship Specialty Start Date End Date Brittany Willoughby MD [address] [place] [address] [place] [address] PCP - General Internal Medicine 05/04/22 Tho Harper MD [address] [place] [address] PCP Resident Internal Medicine 05/04/22 Moi Cartwright I, MD [address] [place] [address] PCP Resident Internal Medicine 05/27/22 Brittany Willoughby MD [address] [place] [address] Referring Internal Medicine 01/26/23 Lab Rep Relationship Specialty Start Date End Date Brittany Willoughby MD [address] [place] [address] PCP - General Internal Medicine 05/04/22 Tho Harper MD [address] [place] [address] PCP Resident Internal Medicine 05/04/22 Moi Cartwright I, MD [address] [place] [address] PCP Resident Internal Medicine 05/27/22 Brittany Willoughby MD [address] [place] [address] Referring Internal Medicine 01/26/23 Lab Rep Relationship Specialty Start Date End Date Brittany Willoughby MD [address] [place] [address] PCP - General Internal Medicine 05/04/22 Tho Harper MD [address] [facility] [place] [address] PCP Resident Internal Medicine 05/04/22 Moi Cartwright I, MD [address] [facility] [place] [address] PCP Resident Internal Medicine 05/27/22 Brittany Willoughby MD [address] [place] [address] Referring Internal Medicine 01/26/23 Lab Rep Relationship Specialty Start Date End Date Brittany Willoughby MD [address] [place] [address] PCP - General Internal Medicine 05/04/22 Tho Harper MD [address] [facility] [place] [address] PCP Resident Internal Medicine 05/04/22 Moi Cartwright I, MD [address] [facility] [place] [address] PCP Resident Internal Medicine 05/27/22 Brittany Willoughby MD [address] [place] [address] Referring Internal Medicine 01/26/23 Lab Rep Relationship Specialty Start Date End Date Brittany Willoughby MD [address] [place] [address] PCP - General Internal Medicine 05/04/22 Tho Harper MD [address] [facility] [place] [address] PCP Resident Internal Medicine 05/04/22 Moi Cartwright I, MD [address] [place] [address] PCP Resident Internal Medicine 05/27/22 Brittany Willoughby MD [address] [place] [address] Referring Internal Medicine 01/26/23 Lab Rep Relationship Specialty Start Date End Date Brittany Willoughby MD [address] [place] [address] PCP - General Internal Medicine 05/04/22 Tho Harper MD [address] [place] [address] PCP Resident Internal Medicine 05/04/22 Moi Cartwright I, MD [address] [place] [address] PCP Resident Internal Medicine 05/27/22 Brittany Willoughby MD [address] [place] [address] Referring Internal Medicine 01/26/23 Lab Rep Relationship Specialty Start Date End Date Brittany Willoughby MD [address] [place] [address] PCP - General Internal Medicine 05/04/22 Tho Harper MD [address] [place] [address] PCP Resident Internal Medicine 05/04/22 Moi Cartwright I, MD [address] [place] [address] PCP Resident Internal Medicine 05/27/22 Brittany Willoughby MD [address] [place] [address] Referring Internal Medicine 01/26/23 Lab Rep Relationship Specialty Start Date End Date Brittany Willoughby MD [address] [place] [address] PCP - General Internal Medicine 05/04/22 Tho Harper MD [address] [facility] [place] [address] PCP Resident Internal Medicine 05/04/22 Moi Cartwright I, MD [address] [facility] [place] [address] PCP Resident Internal Medicine 05/27/22 Brittany Willoughby MD [address] [facility] [place] [address] Referring Internal Medicine 01/26/23 Lab Rep Relationship Specialty Start Date End Date Brittany Willoughby MD [address] [place] [address] PCP - General Internal Medicine 05/04/22 Tho Harper MD [address] [facility] [place] [address] PCP Resident Internal Medicine 05/04/22 Moi Cartwright I, MD [address] [facility] [place] [address] PCP Resident Internal Medicine 05/27/22 Brittany Willoughby MD [address] [facility] [place] [address] Referring Internal Medicine 01/26/23 Lab Rep Relationship Specialty Start Date End Date Brittany Willoughby MD [address] [place] [address] PCP - General Internal Medicine 05/04/22 Tho Harper MD [address] [facility] [place] [address] PCP Resident Internal Medicine 05/04/22 Moi Cartwright I, MD [address] [facility] [place] [address] PCP Resident Internal Medicine 05/27/22 Brittany Willoughby MD [address] [facility] [place] [address] Referring Internal Medicine 01/26/23 Lab Rep Relationship Specialty Start Date End Date Brittany Willoughby MD [address] [facility] [address] [place] [address] PCP - General Internal Medicine 05/04/22 Tho Harper MD [address] [facility] [place] [address] PCP Resident Internal Medicine 05/04/22 Moi Cartwright I, MD [address] [facility] [place] [address] PCP Resident Internal Medicine 05/27/22 Brittany Willoughby MD [address] [facility] [place] [address] Referring Internal Medicine 01/26/23 Lab Rep Relationship Specialty Start Date End Date Brittany Willoughby MD [address] [place] [address] PCP - General Internal Medicine 05/04/22 Tho Harper MD [address] [facility] [place] [address] PCP Resident Internal Medicine 05/04/22 Moi Cartwright I, MD [address] [facility] [place] [address] PCP Resident Internal Medicine 05/27/22 Brittany Willoughby MD [address] [facility] [place] [address] Referring Internal Medicine 01/26/23 Lab Rep Relationship Specialty Start Date End Date Brittany Willoughby MD [address] [facility] [address] [place] [address] PCP - General Internal Medicine 05/04/22 Tho Harper MD [address] [facility] [place] [address] PCP Resident Internal Medicine 05/04/22 Moi Cartwright I, MD [address] [facility] [place] [address] PCP Resident Internal Medicine 05/27/22 Brittany Willoughby MD [address] [facility] [place] [address] Referring Internal Medicine 01/26/23 Lab Rep Relationship Specialty Start Date End Date Brittany Willoughby MD [address] [place] [address] PCP - General Internal Medicine 05/04/22 Tho Harper MD [address] [facility] [place] [address] PCP Resident Internal Medicine 05/04/22 Moi Cartwright I, MD [address] [facility] [place] [address] PCP Resident Internal Medicine 05/27/22 Brittany Willoughby MD [address] [facility] [place] [address] Referring Internal Medicine 01/26/23 Lab Rep Relationship Specialty Start Date End Date Brittany Willoughby MD [address] [facility] [address] [place] [address] PCP - General Internal Medicine 05/04/22 Tho Harper MD [address] [facility] [place] [address] PCP Resident Internal Medicine 05/04/22 Moi Cartwright I, MD [address] [facility] [place] [address] PCP Resident Internal Medicine 05/27/22 Brittany Willoughby MD [address] [facility] [place] [address] Referring Internal Medicine 01/26/23 Lab Rep Relationship Specialty Start Date End Date Brittany Willoughby MD [address] [facility] [address] [place] [address] PCP - General Internal Medicine 05/04/22 Tho Harper MD [address] [facility] [place] [address] PCP Resident Internal Medicine 05/04/22 Moi Cartwright I, MD [address] [facility] [place] [address] PCP Resident Internal Medicine 05/27/22 Brittany Willoughby MD [address] [facility] [place] [address] Referring Internal Medicine 01/26/23 Lab Rep Relationship Specialty Start Date End Date Brittany Willoughby MD [address] [facility] [address] [place] [address] PCP - General Internal Medicine 05/04/22 Tho Harper MD [address] [facility] [place] [address] PCP Resident Internal Medicine 05/04/22 Moi Cartwright I, MD [address] [facility] [place] [address] PCP Resident Internal Medicine 05/27/22 Brittany Willoughby MD [address] [facility] [place] [address] Referring Internal Medicine 01/26/23 Lab Rep Relationship Specialty Start Date End Date Brittany Willoughby MD [address] [facility] [address] [place] [address] PCP - General Internal Medicine 05/04/22 Tho Harper MD [address] [facility] [place] [address] PCP Resident Internal Medicine 05/04/22 Moi Cartwright I, MD [address] [facility] [place] [address] PCP Resident Internal Medicine 05/27/22 Brittany Willoughby MD [address] [facility] [place] [address] Referring Internal Medicine 01/26/23 Lab Rep Relationship Specialty Start Date End Date Brittany Willoughby MD [address] [facility] [address] [place] [address] PCP - General Internal Medicine 05/04/22 Tho Harper MD [address] [facility] [place] [address] PCP Resident Internal Medicine 05/04/22 Moi Cartwright I, MD [address] [facility] [place] [address] PCP Resident Internal Medicine 05/27/22 Brittany Willoughby MD [address] [facility] [place] [address] Referring Internal Medicine 01/26/23 Lab Rep Relationship Specialty Start Date End Date Brittany Willoughby MD [address] [facility] [address] [place] [address] PCP - General Internal Medicine 05/04/22 Tho Harpre MD [address] [facility] [place] [address] PCP Resident Internal Medicine 05/04/22 Moi Cartwright I, MD [address] [facility] [place] [address] PCP Resident Internal Medicine 05/27/22 Brittany Willoughby MD [address] [facility] [place] [address] Referring Internal Medicine 01/26/23 Lab Rep Relationship Specialty Start Date End Date Brittany Willoughby MD [address] [facility] [address] [place] [address] PCP - General Internal Medicine 05/04/22 Tho Harper MD [address] [facility] [place] [address] PCP Resident Internal Medicine 05/04/22 Moi Cartwrigth I, MD [address] [facility] [place] [address] PCP Resident Internal Medicine 05/27/22 Brittany Willoughby MD [address] [facility] [place] [address] Referring Internal Medicine 01/26/23 Lab Rep Relationship Specialty Start Date End Date Brittany Willoughby MD [address] [facility] [address] [place] [address] PCP - General Internal Medicine 05/04/22 Tho Harper MD [address] [facility] [place] [address] PCP Resident Internal Medicine 05/04/22 Moi Cartwright I, MD [address] [facility] [place] [address] PCP Resident Internal Medicine 05/27/22 Brittany Willoughby MD [address] [facility] [place] [address] Referring Internal Medicine 01/26/23 Lab Rep Relationship Specialty Start Date End Date Brittany Willoughby MD [address] [place] [address] PCP - General Internal Medicine 05/04/22 Tho Harper MD [address] [facility] [place] [address] PCP Resident Internal Medicine 05/04/22 Moi Cartwright I, MD [address] [facility] [place] [address] PCP Resident Internal Medicine 05/27/22 Brittany Willoughby MD [address] [place] [address] Referring Internal Medicine 01/26/23 Lab Rep Relationship Specialty Start Date End Date Brittany Willoughby MD [address] [facility] [address] [place] [address] PCP - General Internal Medicine 05/04/22 Tho Harper MD [address] [place] [address] PCP Resident Internal Medicine 05/04/22 Moi Cartwright I, MD [address] [facility] [place] [address] PCP Resident Internal Medicine 05/27/22 Brittany Willoughby MD [address] [place] [address] Referring Internal Medicine 01/26/23 Lab Rep Relationship Specialty Start Date End Date Brittany Willoughby MD [address] [place] [address] PCP - General Internal Medicine 05/04/22 Tho Harper MD [address] [facility] [place] [address] PCP Resident Internal Medicine 05/04/22 Moi Cartwright I, MD [address] [facility] [place] [address] PCP Resident Internal Medicine 05/27/22 Brittany Willoughby MD [address] [facility] [place] [address] Referring Internal Medicine 01/26/23 Lab Rep Relationship Specialty Start Date End Date Brittany Willoughby MD [address] [place] [address] PCP - General Internal Medicine 05/04/22 Tho Harper MD [address] [facility] [place] [address] PCP Resident Internal Medicine 05/04/22 Moi Cartwright I, MD [address] [place] [address] PCP Resident Internal Medicine 05/27/22 Brittany Willoughby MD [address] [facility] [place] [address] Referring Internal Medicine 01/26/23 Lab Rep Relationship Specialty Start Date End Date Brittany Willoughby MD [address] [place] [address] PCP - General Internal Medicine 05/04/22 Tho Harper MD [address] [facility] [place] [address] PCP Resident Internal Medicine 05/04/22 Moi Cartwright I, MD [address] [facility] [place] [address] PCP Resident Internal Medicine 05/27/22 Brittany Willoughby MD [address] [facility] [place] [address] Referring Internal Medicine 01/26/23 Lab Rep Relationship Specialty Start Date End Date Brittany Willoughby MD [address] [place] [address] PCP - General Internal Medicine 05/04/22 Tho Harper MD [address] [facility] [place] [address] PCP Resident Internal Medicine 05/04/22 Moi Cartwright I, MD [address] [facility] [place] [address] PCP Resident Internal Medicine 05/27/22 Brittany Willoughby MD [address] [facility] [place] [address] Referring Internal Medicine 01/26/23 Lab Rep Relationship Specialty Start Date End Date Brittany Willoughby MD [address] [place] [address] PCP - General Internal Medicine 05/04/22 Tho Harper MD [address] [facility] [place] [address] PCP Resident Internal Medicine 05/04/22 Moi Cartwright I, MD [address] [facility] [place] [address] PCP Resident Internal Medicine 05/27/22 Brittany Willoughby MD [address] [facility] [place] [address] Referring Internal Medicine 01/26/23 Lab Rep Relationship Specialty Start Date End Date Brittany Willoughby MD [address] [facility] [address] [place] [address] PCP - General Internal Medicine 05/04/22 Tho Harper MD [address] [facility] [place] [address] PCP Resident Internal Medicine 05/04/22 Moi Cartwright I, MD [address] [facility] [place] [address] PCP Resident Internal Medicine 05/27/22 Brittany Willoughby MD [address] [facility] [place] [address] Referring Internal Medicine 01/26/23 Lab Rep Relationship Specialty Start Date End Date Brittany Willoughby MD [address] [place] [address] PCP - General Internal Medicine 05/04/22 Tho Harper MD [address] [facility] [place] [address] PCP Resident Internal Medicine 05/04/22 Moi Cartwright I, MD [address] [facility] [place] [address] PCP Resident Internal Medicine 05/27/22 Brittany Willoughby MD [address] [facility] [place] [address] Referring Internal Medicine 01/26/23 Lab Rep Relationship Specialty Start Date End Date Brittany Willoughby MD [address] [facility] [address] [place] [address] PCP - General Internal Medicine 05/04/22 Tho Harper MD [address] [place] [address] PCP Resident Internal Medicine 05/04/22 Moi Cartwright I, MD [address] [facility] [place] [address] PCP Resident Internal Medicine 05/27/22 Brittany Willoughby MD [address] [facility] [place] [address] Referring Internal Medicine 01/26/23 Lab Rep Relationship Specialty Start Date End Date Brittany Willoughby MD [address] [facility] [address] [place] [address] PCP - General Internal Medicine 05/04/22 Tho Harper MD [address] [facility] [place] [address] PCP Resident Internal Medicine 05/04/22 Moi Cartwright I, MD [address] [facility] [place] [address] PCP Resident Internal Medicine 05/27/22 Brittany Willoughby MD [address] [place] [address] Referring Internal Medicine 01/26/23 Travis Schilling MD [address] [place] [phone] Pulmonary and Critical Care Medicine 05/24/24 Lab Rep Relationship Specialty Start Date End Date Brittany Willoughby MD [address] [address] PCP - General Internal Medicine 05/04/22 Tho Harper MD [address] [place] [address] PCP Resident Internal Medicine 05/04/22 Moi Cartwright I, MD [address] [place] [address] PCP Resident Internal Medicine 05/27/22 Brittany Willoughby MD [address] [place] [address] Referring Internal Medicine 01/26/23 Travis Schilling MD [address] [place] [phone] Pulmonary and Critical Care Medicine 05/24/24 Lab Rep Relationship Specialty Start Date End Date Brittany Willoughby MD [address] [address] PCP - General Internal Medicine 05/04/22 Tho Harper MD [address] [facility] [place] [address] PCP Resident Internal Medicine 05/04/22 Moi Cartwright I, MD [address] [place] [address] PCP Resident Internal Medicine 05/27/22 Brittany Willoughby MD [address] [place] [address] Referring Internal Medicine 01/26/23 Travis Schilling MD [address] [place] [phone] Pulmonary and Critical Care Medicine 05/24/24 Lab Rep Relationship Specialty Start Date End Date Brittany Willoughby MD [address] [address] PCP - General Internal Medicine 05/04/22 Tho Harper MD [address] [place] [address] PCP Resident Internal Medicine 05/04/22 Moi Cartwright I, MD [address] [place] [address] PCP Resident Internal Medicine 05/27/22 Brittany Willoughby MD [address] [place] [address] Referring Internal Medicine 01/26/23 Travis Schilling MD [address] [place] [phone] Pulmonary and Critical Care Medicine 05/24/24 Lab Rep Relationship Specialty Start Date End Date Brittany Willoughby MD [address] [facility] [address] [place] [address] PCP - General Internal Medicine 05/04/22 Tho Harper MD [address] [place] [address] PCP Resident Internal Medicine 05/04/22 Moi Cartwright I, MD [address] [place] [address] PCP Resident Internal Medicine 05/27/22 Brittany Willoughby MD [address] [place] [address] Referring Internal Medicine 01/26/23 Travis Schilling MD [address] [place] [phone] Pulmonary and Critical Care Medicine 05/24/24 Lab Rep Relationship Specialty Start Date End Date Brittany Willoughby MD [address] [facility] [address] [place] [id number] PCP - General Internal Medicine 05/04/22 Tho Harper MD [address] [place] [address] PCP Resident Internal Medicine 05/04/22 Moi Cartwright I, MD [address] [place] [address] PCP Resident Internal Medicine 05/27/22 Brittany Willoughby MD [address] [place] [address] Referring Internal Medicine 01/26/23 Travis Schilling MD [address] [place] [phone] Pulmonary and Critical Care Medicine 05/24/24 Lab Rep Relationship Specialty Start Date End Date Brittany Willoughby MD [address] [facility] [address] [address] [address] PCP - General Internal Medicine 05/04/22 Tho Harper MD [address] [place] [address] PCP Resident Internal Medicine 05/04/22 Brittany Willoughby MD [address] [place] [address] Referring Internal Medicine 01/26/23 Travis Schilling MD [address] [place] [phone] Pulmonary and Critical Care Medicine 05/24/24 Janette Gonzalez MD [address] [facility] [place] [address] PCP Resident Internal Medicine 06/28/24 Lab Rep Relationship Specialty Start Date End Date Brittany Willoughby MD [address] [address] PCP - General Internal Medicine 05/04/22 Tho Harper MD [address] [place] [address] PCP Resident Internal Medicine 05/04/22 Brittany Willoughby MD [address] [place] [address] Referring Internal Medicine 01/26/23 Travis Schilling MD [address] [place] [phone] Pulmonary and Critical Care Medicine 05/24/24 Janette Gonzalez MD [address] [place] [address] PCP Resident Internal Medicine 06/28/24 Lab Rep Relationship Specialty Start Date End Date Brittany Willoughby MD [address] [address] PCP - General Internal Medicine 05/04/22 Tho Harper MD [address] [place] [address] PCP Resident Internal Medicine 05/04/22 Brittany Willoughby MD [address] [place] [address] Referring Internal Medicine 01/26/23 Travis Schilling MD [address] [place] [phone] Pulmonary and Critical Care Medicine 05/24/24 Janette Gonzalez MD [address] [place] [address] PCP Resident Internal Medicine 06/28/24 Lab Rep Relationship Specialty Start Date End Date Brittany Willoughby MD [address] [facility] [address] [address] PCP - General Internal Medicine 05/04/22 Tho Harper MD [address] [place] [address] PCP Resident Internal Medicine 05/04/22 Brittany Willoughby MD [address] [place] [address] Referring Internal Medicine 01/26/23 Travis Schilling MD [address] [place] [phone] Pulmonary and Critical Care Medicine 05/24/24 Janette Gonzalez MD [address] [facility] [place] [address] PCP Resident Internal Medicine 06/28/24 Lab Rep Relationship Specialty Start Date End Date Brittany Willoughby MD [address] [address] PCP - General Internal Medicine 05/04/22 Tho Harper MD [address] [place] [address] PCP Resident Internal Medicine 05/04/22 Brittany Willoughby MD [address] [place] [address] Referring Internal Medicine 01/26/23 Travis Schilling MD [address] [place] [phone] Pulmonary and Critical Care Medicine 05/24/24 Janette Gonzalez MD [address] [place] [address] PCP Resident Internal Medicine 06/28/24 Lab Rep Relationship Specialty Start Date End Date Brittany Willoughby MD [address] [facility] [address] [place] [address] PCP - General Internal Medicine 05/04/22 Tho Harper MD [address] [place] [address] PCP Resident Internal Medicine 05/04/22 Brittany Willoughby MD [address] [place] [address] Referring Internal Medicine 01/26/23 Travis Schilling MD [address] [place] [phone] Pulmonary and Critical Care Medicine 05/24/24 Janette Gonzalez MD [address] [place] [address] PCP Resident Internal Medicine 06/28/24 Lab Rep Relationship Specialty Start Date End Date Brittany Willoughby MD [address] [place] [address] PCP - General Internal Medicine 05/04/22 Tho Harper MD [address] [place] [address] PCP Resident Internal Medicine 05/04/22 Brittany Willoughby MD [address] [place] [address] Referring Internal Medicine 01/26/23 Travis Schilling MD [address] [place] [phone] Pulmonary and Critical Care Medicine 05/24/24 Janette Gonzalez MD [address] [place] [address] PCP Resident Internal Medicine 06/28/24 Lab Rep Relationship Specialty Start Date End Date Brittany Willoughby MD [address] [place] [id number] PCP - General Internal Medicine 05/04/22 Tho Harper MD [address] [place] [address] PCP Resident Internal Medicine 05/04/22 Brittany Willoughby MD [address] [place] [address] Referring Internal Medicine 01/26/23 Travis Schilling MD [address] [place] [phone] Pulmonary and Critical Care Medicine 05/24/24 Janette Gonzalez MD [address] [place] [address] PCP Resident Internal Medicine 06/28/24 Lab Rep Relationship Specialty Start Date End Date Brittany Willoughby MD [address] [facility] [address] [place], [place] [id number] PCP - General Internal Medicine 05/04/22 Travis Schilling MD [address] [place] [phone] Pulmonary and Critical Care Medicine 05/24/24 Janette Gonzalez MD [address] [facility] [address] [place], [place] [id number] PCP Resident Internal Medicine 06/28/24 Ирина Dalal MD [address] [address] Landscape Supervisor Cardiology 08/29/24 Lab Rep Relationship Specialty Start Date End Date Brittany Willoughby MD [address] [facility] [address] [place] [address] PCP - General Internal Medicine 05/04/22 Travis Schilling MD [address] [place] [phone] Pulmonary and Critical Care Medicine 05/24/24 Janette Gonzalez MD [address] [place], [place] [phone] PCP Resident Internal Medicine 06/28/24 Ирина Dalal MD [address] [place], [place] [phone] Landscape Supervisor Cardiology 08/29/24 Lab Rep Relationship Specialty Start Date End Date Brittany Willoughby MD [address] [facility] [address] [place], [place] [id number] PCP - General Internal Medicine 05/04/22 Travis Schilling MD [address] [phone] Pulmonary and Critical Care Medicine 05/24/24 Janette Gonzalez MD [address] [place], [place] [phone] PCP Resident Internal Medicine 06/28/24 Ирина Dalal MD [address] [address] Landscape Supervisor Cardiology 08/29/24 Lab Rep Relationship Specialty Start Date End Date Brittany Willoughby MD [address] [facility] [address] [place] [address] PCP - General Internal Medicine 05/04/22 Travis Schilling MD [address] [phone] Pulmonary and Critical Care Medicine 05/24/24 Janette Gonzalez MD [address] [place], [place] [phone] PCP Resident Internal Medicine 06/28/24 Ирина Dalal MD [address] [place], [place] [phone] Landscape Supervisor Cardiology 08/29/24 Modesto Akins MD 1945 [facility] [address] [place] [phone] Endocrinology 11/08/24 Lab Rep Relationship Specialty Start Date End Date Brittany Willoughby MD [address] [place], [place] [id number] PCP - General Internal Medicine 05/04/22 Travis Schilling MD [facility] [address] [place] [phone] Pulmonary and Critical Care Medicine 05/24/24 Janette Gonzalez MD [address] [facility] [place], [place] [phone] PCP Resident Internal Medicine 06/28/24 Ирина Dalal MD [address] [place] [address] Landscape Supervisor Cardiology 08/29/24 Modesto Akins MD 1945 [facility] [address] [place] [phone] Endocrinology 11/08/24 Lab Rep Relationship Specialty Start Date End Date Brittany Willoughby MD [address] [place], [place] [id number] PCP - General Internal Medicine 05/04/22 Travis Schilling MD [address] [place] [address] [address] [place] [phone] Pulmonary and Critical Care Medicine 05/24/24 Janette Gonzalez MD [address] [place], [place] [id number] PCP Resident Internal Medicine 06/28/24 Ирина Dalal MD [address] [place], [place] [phone] Landscape Supervisor Cardiology 08/29/24 Modesto Akins MD 1945 [facility] [address] [place] [phone] Endocrinology 11/08/24 Lab Rep Relationship Specialty Start Date End Date Brittany Willoughby MD [address] [facility] [address] [place], [place] [phone] PCP - General Internal Medicine 05/04/22 Travis Schilling MD [address] [place] [address] [address] [place] [phone] Pulmonary and Critical Care Medicine 05/24/24 Janette Gonzalez MD [address] [place], [place] [id number] PCP Resident Internal Medicine 06/28/24 Ирина Dalal MD [address] [place], [place] [phone] Landscape Supervisor Cardiology 08/29/24 Modesto Akins MD [address] [place] [address] [address] [place] [phone] Endocrinology 11/08/24 Lab Rep Relationship Specialty Start Date End Date Brittany Willoughby MD [address] [place], [place] [id number] PCP - General Internal Medicine 05/04/22 Travis Schilling MD 1945 [facility] [address] [place] [phone] Pulmonary and Critical Care Medicine 05/24/24 Janette Gonzalez MD [address] [place] [address] PCP Resident Internal Medicine 06/28/24 Ирина Dalal MD [address] [place], [place] [phone] Landscape Supervisor Cardiology 08/29/24 Modesto Akins MD 1945 [facility] [address] [place] [phone] Endocrinology 11/08/24 Lab Rep Relationship Specialty Start Date End Date Brittany Willoughby MD [address] [facility] [address] [place] [address] PCP - General Internal Medicine 05/04/22 Travis Schilling MD 1945 [facility] [address] [place] [phone] Pulmonary and Critical Care Medicine 05/24/24 Janette Gonzalez MD [address] [place], [place] [phone] PCP Resident Internal Medicine 06/28/24 Ирина Dalal MD [address] [facility] [address] [place] [address] Landscape Supervisor Cardiology 08/29/24 Modesto Akins MD [address] [place] [address] [address] [place] [phone] Endocrinology 11/08/24 Lab Rep Relationship Specialty Start Date End Date Brittany Willoughby MD [address] [facility] [address] [place] [address] PCP - General Internal Medicine 05/04/22 Travis Schilling MD [address] [place] [address] [address] [place] [phone] Pulmonary and Critical Care Medicine 05/24/24 [place] [address] [place] [address] PCP Resident Internal Medicine 06/28/24 Ирина Dalal MD [address] [facility] [address] [place] [address] Landscape Supervisor Cardiology 08/29/24 Modesto Akins MD [address] [place] [address] [address] [place] [phone] Endocrinology 11/08/24 FOR RECORDS PERTAINING TO PATIENTS WHO ARE OR HAVE BEEN ENROLLED IN A CHEMICAL DEPENDENCY/SUBSTANCEABUSE PROGRAM, SOME INFORMATION MAY BE OMITTED. This clinical summary was aggregated from multiple sources. Caution should be exercised in using it in the provision of clinical care. This summary normalizes information from multiple sources, and as a consequence, information in this document may materially change the coding, format and clinical context of patient data. In addition, data may be omitted in some cases. CLINICAL DECISIONS SHOULD BE BASED ON THE PRIMARY CLINICAL RECORDS. [facility] [employer] [facility]. provides no warranty or guarantee of the accuracy or completeness of information in this document.
[2025-06-02 10:53] VITALS: BP 146/90; PULSE 66; RESP 20; TEMP 36.3; O2SAT 98
== END 2025-06-02 10:56 | disposition home or self-care (01) ==
PROVIDERS: Emergency Provider Emergency Medicine; Visit Provider Emergency Medicine
DX: S39.012A Strain of muscle, fascia and tendon of lower back, initial encounter (principal); J44.9 Chronic obstructive pulmonary disease, unspecified; W10.9XXA Fall (on) (from) unspecified stairs and steps, initial encounter; S16.1XXA Strain of muscle, fascia and tendon at neck level, initial encounter; I10 Essential (primary) hypertension; E78.00 Pure hypercholesterolemia, unspecified; S20.229A Contusion of unspecified back wall of thorax, initial encounter; S30.0XXA Contusion of lower back and pelvis, initial encounter; Y92.019 Unspecified place in single-family (private) house as the place of occurrence of the external cause; Z98.51 Tubal ligation status; Z90.710 Acquired absence of both cervix and uterus; F17.200 Nicotine dependence, unspecified, uncomplicated
CPT/HCPCS: 72100; 72170; 99282